=== PATIENT | female | born 1945 | race Caucasian/White ===

== ENCOUNTER → 2016-10-21 | Outpatient (CLI) | payer OTHER ==
[~2016-10-21] MED LIST: AMT10 PO; CALC-393 PO; CHOL100010 PO; FLUO10CA48 PO; IBUPROFEN; MULT-653; OMEP10CA2 PO; SIMV10TA2 PO; TYLOTC500 PO
[2016-10-21 13:46] LABS: BLOOD UREA NITROGEN 15 mg/dl (7-18); BUN/CREATININE RATIO 15.7 (10-20); CALCIUM 8.7 mg/dl (8.5-10.1); CARBON DIOXIDE 27 mmol/L (21-32); CHLORIDE 105 mmol/L (98-107); CREATININE 0.93 mg/dl (0.60-1.20); GLUCOSE 114 mg/dl (70-99); POTASSIUM 4.1 mmol/L (3.5-5.1); SODIUM 140 mmol/L (136-145)
[2016-10-21 13:50] LABS: ALT/SGPT 20 U/L (12-78); AST/SGOT 13 U/L (15-37); CHOLESTEROL 186 mg/dl (0-200); CHOLESTEROL/HDL RATIO 4.2; HDL CHOLESTEROL 44 mg/dl; LDL CHOLESTEROL CALCULATED 108 mg/dl; TRIGLYCERIDES 172 mg/dl (0-150); VERY LOW DENSITY LIPOPROT CALC 34 mg/dl
== END | disposition home or self-care (01) ==
LOC: C.LAB 11:39
PROVIDERS: ATTEND Family Medicine
DX: I10 Essential (primary) hypertension (principal); E78.5 Hyperlipidemia, unspecified

== ENCOUNTER → 2017-03-03 | Outpatient (CLI) | payer OTHER ==
--- NOTE | 2017-03-03 14:31 | MAMMOGRAPHY REPORT ---
BILATERAL DIGITAL SCREENING MAMMOGRAM WITH CAD: 03/03/2017 CLINICAL HISTORY: Routine screening. TECHNIQUE: Current study was also evaluated with a Computer Aided Detection (CAD) system. Bilateral CC and MLO views were obtained. COMPARISON: Comparison is made to exams dated: 03/01/2016 mammogram, 02/27/2015 mammogram, 02/24/2014 m ammogram, 02/23/2013 mammogram, 08/15/2011 mammogram, and 08/31/2010 mammogram - [facility] nter. BREAST COMPOSITION: The tissue of both breasts is almost entirely fatty. FINDINGS: No suspicious masses, calcifications, or areas of architectural distortion are noted in ei ther breast. There has been no significant interval change compared to prior exams. IMPRESSION: ACR BI-RADS CATEGORY 1: NEGATIVE There is no mammographic evidence of malignancy. A 1 year screening mammogram is recommended. The pa tient will receive written notification of the results. Approximately 10% of breast cancers are not detected with mammography. A negative mammographic report should not delay biopsy if a clinically suggestive mass is present. Stephanie Balderrama M.D. ah/:03/03/2017 12:22:51 Bottle Machine Operator: Maude Alvarenga RT(R)(M), [facility] letter sent: Normal 1/2 BI-RADS Code: ACR BI-RADS Category 1: Negative
== END | disposition home or self-care (01) ==
LOC: C.MAMM 11:47
PROVIDERS: ATTEND Obstetrics & Gynecology
DX: Z12.31 Encounter for screening mammogram for malignant neoplasm of breast (principal)

== ENCOUNTER → 2017-04-28 | Outpatient (CLI) | payer OTHER ==
[2017-04-28 18:27] LABS: BLOOD UREA NITROGEN 16 mg/dl (7-18); BUN/CREATININE RATIO 18.4 (10-20); CALCIUM 9.1 mg/dl (8.5-10.1); CARBON DIOXIDE 25 mmol/L (21-32); CHLORIDE 104 mmol/L (98-107); CHOLESTEROL 193 mg/dl (0-200); CREATININE 0.87 mg/dl (0.60-1.20); GLUCOSE 104 mg/dl (70-99); POTASSIUM 4.2 mmol/L (3.5-5.1); SODIUM 137 mmol/L (136-145); TRIGLYCERIDES 161 mg/dl (0-150); VERY LOW DENSITY LIPOPROT CALC 32 mg/dl
[2017-04-28 18:31] LABS: CHOLESTEROL/HDL RATIO 4.4; HDL CHOLESTEROL 44 mg/dl; LDL CHOLESTEROL CALCULATED 117 mg/dl
[2017-04-29 06:27] LABS: ESTIMATED AVERAGE GLUCOSE 128 mg/dl; HA1C FLAG Normal (Normal)
== END | disposition home or self-care (01) ==
LOC: C.LABPVFM 14:21
PROVIDERS: ATTEND Family Medicine
DX: R73.09 Other abnormal glucose (principal); E78.5 Hyperlipidemia, unspecified

== ENCOUNTER → 2018-03-04 | Outpatient (CLI) | payer OTHER ==
--- NOTE | 2018-03-05 07:56 | MAMMOGRAPHY REPORT ---
BILATERAL DIGITAL SCREENING MAMMOGRAM TOMOSYNTHESIS WITH CAD: 03/04/2018 CLINICAL HISTORY: Routine screening. Patient has no complaints. TECHNIQUE: The study was acquired using full field digital technology and interpreted from soft copy. Breast tomosynthesis in addition to standard 2D mammography was performed. Current study was also ev aluated with a Computer Aided Detection (CAD) system. COMPARISON: Comparison is made to exams dated: 03/03/2017 mammogram, 03/01/2016 mammogram, 02/27/2015 m ammogram, 02/23/2013 mammogram, 08/15/2011 mammogram, and 09/10/2010 ultrasound - [facility] enter. BREAST COMPOSITION: There are scattered areas of fibroglandular density in both breasts. FINDINGS: No suspicious masses, calcifications, or areas of architectural distortion are noted in either breast . There has been no significant interval change compared to prior exams. IMPRESSION: ACR BI-RADS CATEGORY 1: NEGATIVE There is no mammographic evidence of malignancy. A 1 year screening mammogram is recommended.( 019) The patient will receive written notification of the results. Some breast cancers are not detected with mammography. A negative mammographic report should not chet y biopsy if a clinically suggestive mass is present. Stephanie Balderrama M.D. ah/:03/04/2018 12:32:58 Radioisotope Technician: RT Dickson(Gary)(M), [facility] letter sent: Normal 1/2 BI-RADS Code: ACR BI-RADS Category 1: Negative
== END | disposition home or self-care (01) ==
LOC: C.MAMM 12:11
PROVIDERS: ATTEND Family Medicine Adult Medicine
DX: Z12.31 Encounter for screening mammogram for malignant neoplasm of breast (principal)

== ENCOUNTER → 2018-03-30 | Outpatient (CLI) | payer OTHER ==
[2018-03-30 17:38] LABS: BASO % 1.2 %; BASO ABS # 0.08 K/uL (0-0.2); EOS % 1.8 %; EOS ABS # 0.12 K/uL (0-0.5); HEMATOCRIT 43.7 % (37-47); HEMOGLOBIN 14.5 g/dL (12.0-16.0); IG# 0.01 K/uL (0.00-0.02); LYMPH % 27.3 %; LYMPH ABS # 1.84 K/uL (1.2-3.4); MEAN CELL VOLUME 88.1 fL (80-100); MEAN CORPUSCULAR HEMOGLOBIN 29.2 pg (25-34); MEAN CORPUSCULAR HGB CONC 33.2 g/dl (32-36); MEAN PLATELET VOLUME 12.4 fL (7.4-10.4); MONO % 10.8 %; MONO ABS # 0.73 K/uL (0.11-0.59); NEUT % 58.8 %; NEUT ABS # 3.95 K/uL (1.4-6.5); PLATELET COUNT 271 K/uL (130-400); RED CELL DISTRIBUTION WIDTH CV 13.2 % (11.5-14.5); RED CELL DISTRIBUTION WIDTH SD 42.3 fL (36.4-46.3); WHITE BLOOD COUNT 6.73 K/uL (4.8-10.8)
[2018-03-30 17:55] LABS: BLOOD UREA NITROGEN 11 mg/dl (7-18); GLUCOSE 92 mg/dl (70-99)
[2018-03-30 17:56] LABS: ALBUMIN 3.6 gm/dl (3.4-5.0); ALKALINE PHOSPHATASE 63 U/L (45-117); ALT/SGPT 22 U/L (12-78); AST/SGOT 19 U/L (15-37); CALCIUM 8.8 mg/dl (8.5-10.1); CARBON DIOXIDE 24 mmol/L (21-32); CHOLESTEROL 159 mg/dl (0-200); LDL CHOLESTEROL CALCULATED 85 mg/dl; POTASSIUM 4.1 mmol/L (3.5-5.1); SODIUM 137 mmol/L (136-145); TOTAL PROTEIN 7.7 gm/dl (6.4-8.2)
[2018-03-31 06:11] LABS: HEMOGLOBIN A1C 6.4 % (4.5-5.6)
== END | disposition home or self-care (01) ==
LOC: C.LABBC 13:31
PROVIDERS: ATTEND Family Medicine Adult Medicine
DX: E78.5 Hyperlipidemia, unspecified (principal); I10 Essential (primary) hypertension; R73.09 Other abnormal glucose; R61 Generalized hyperhidrosis

== ENCOUNTER 2021-12-05 17:21 | Observation (INO) ==
[2021-12-05 18:02] LABS: Basophils # (auto) 0.11 K/uL (0-0.2); Basophils % (auto) 1.9 %; Eosinophils # (auto) 0.13 K/uL (0-0.5); Eosinophils % (auto) 2.2 %; Hematocrit (blood only) 41.2 % (37-47); Hemoglobin 14.2 g/dL (12.0-16.0); Immature Granulocytes # (auto) 0.01 K/uL (0.00-0.02); Immature Granulocytes % (auto) 0.2 %; Lymphocytes # (auto) 1.82 K/uL (1.2-3.4); Lymphocytes % (auto) 30.8 %; Mean Corpuscular Hemoglobin 31.1 pg (25-34); Mean Corpuscular Hgb Conc 34.5 g/dL (32-36); Mean Corpuscular Volume 90.4 fL (80-100); Mean Platelet Volume 11.6 fL (7.4-10.4); Monocytes # (auto) 0.85 K/uL (0.11-0.59); Monocytes % (auto) 14.4 %; Neutrophils # (auto) 2.98 K/uL (1.4-6.5); Neutrophils % (auto) 50.5 %; Platelet Count 262 K/uL (130-400); RDW Coefficient of Variation 12.7 % (11.5-14.5); RDW Standard Deviation 41.8 fL (36.4-46.3); Red Blood Count 4.56 M/uL (4.2-5.4)
[2021-12-05 18:05] LABS: INR 0.9 (0.9-1.1); Partial Thromboplastin Ratio 0.9; Partial Thromboplastin Time 24.8 Seconds (21.0-31.0); Prothrombin Time 9.9 Seconds (9.0-12.0)
[2021-12-05 18:10] LABS: Albumin Globulin Ratio 1.3 (0.9-2); Albumin Level 4.2 gm/dl (3.4-5.0); BUN Creatinine Ratio 17.3 (10-20); Bilirubin,Total 0.4 mg/dl (0.2-1.0); Calcium 9.1 mg/dl (8.5-10.1); Creatinine Clr Calc Pharmacy 49.8 ml/min; Est GFR (African American) 65.9 ml/min; Est GFR (Non-African American) 56.8 ml/min; Globulin 3.2 gm/dl (2.5-4.0); Potassium 3.7 mmol/L (3.5-5.1); Total Protein 7.4 gm/dl (6.0-8.3)
--- NOTE | 2021-12-05 18:25 | XRay Report ---
XR chest 2V PA/lateral CLINICAL HISTORY: Atypical chest pain. COMPARISON STUDY: Chest radiograph March 01, 2021. FINDINGS: Lung volumes are normal. Minimal opacity along left heart border is unchanged and favors at electasis. There is no pneumothorax or pleural effusion. Cardiac size is normal. Mediastinal contours are normal. There is no evidence for pulmonary edema. IMPRESSION: No acute cardiopulmonary findings. ACT 112: Negative or not required by law. Electronically signed by: Jonas Colvin M.D. 12/05/2021 6:24 PM
[2021-12-05] MEDS ORDERED: ASPIRIN CHEW 324 MG PO STA (18:32)
[2021-12-05] MEDS ORDERED: SODIUM CHLORIDE 0.9% 1000ML 1,000 ML IV ONE (18:32)
--- NOTE | 2021-12-05 18:37 | Emergency Department Note ---
Impression & Plan Non-ST elevation SD (NSTEMI), Exertional chest pain ED Provider Note NAME: IZABELLA CLEMENS AGE: 76 SEX: F : 1945 ARRIVES VIA: Walk-In INFORMANT: Patient ED PROVIDER(S): Rodney Tracy DO CHIEF COMPLAINT: chest pain and shortness of breath HPI: Patient is a 76-year-old female who presents to the ER for exertional chest pain and shortness of breath referred in by PCP. She notes this has been going on for the past week. She denies any belly pain, nausea, vomiting, or diarrhea. No dysuria, urgency, or frequency. Pain is currently 0 out of 10. Describes as a heaviness/pressure in the middle of the chest without any other radiation. Resolves with rest. Does admit to a history of hypertension and hyperlipidemia. ROS: See above HPI for pertinent positives & negatives. A total of 10 systems reviewed and were otherwise negative. PAST MEDICAL HISTORY:See Below PAST SURGICAL HISTORY:See Below FAMILY HISTORY:See Below SOCIAL HISTORY:See Below HOME MEDICATIONS:See Below ALLERGIES:See Below VITALS:See Below PHYSICAL EXAMINATION: GENERAL: Sitting up in bed, alert, well appearing, well nourished, no distress, non-toxic EYE EXAM: normal conjunctiva. OROPHARYNX: no exudate, no erythema, lips, buccal mucosa, and tongue normal and mucous membranes are moist NECK: supple, no nuchal rigidity, no adenopathy, non-tender LUNGS: Clear to auscultation. Normal chest wall mechanics HEART: no murmurs, S1 normal and S2 normal ABDOMEN: abdomen soft, non-tender, normo-active bowel sounds, no masses, no rebound or guarding. UPPER EXTREMITIES: upper extremities are grossly normal. LOWER EXTREMITIES: No pitting edema. NEURO EXAM: Normal sensorium, cranial nerves II-XII grossly intact, normal speech, no gross weakness of arms, no gross weakness of legs. MEDICAL DECISION MAKING: Patient is a 76-year-old female presents ER for exertional chest pain shortness of breath. IV was established with orders obtained. Labs showed no significant leukocytosis or anemia. INR was unremarkable. BMP along with LFTs bilirubin w as unremarkable. Troponin was elevated at 200. COVID was negative. EKG was nondiagnostic. CT angio was neg and done as she had pleuritic CP with a +trop. Discussed with Dr. Victor that she did have 1 recurrence of chest pain while in the ER which resolved very quickly with nitro. She was placed on Nitropaste. He recommended holding on heparin. Patient was updated bedside admitted to the hospital for an NSTEMI. Triage Nursing notes reviewed. Limited review of prior medical records performed Vital Signs: reviewed and remarkable for HTN Differential diagnosis: Differential diagnoses includes but is not limited to acute coronary syndrome, myocardial infarction, pericarditis, pulmonary embolus, aortic dissection, pneumonia, pneumothorax, musculoskeletal, shingles, esophageal. ER treatment provided: See below Diagnostics interpreted by me: ECG: Sinus rhythm at 60 Normal axis Inferior Q waves Right bundle branch block QTC 470 T wave inversion in the inferior leads as well as V3 and V4 No significant change from previous on February 2021 Cardiac Monitoring: An order was placed for continuous cardiac monitoring. The monitor shows a rate of 70 with sinus rhythm. Laboratory studies: As stated above and show below. Imaging studies: CT angio was negative for PE Consultation(s): Discussed with Dr. Victor in regards to placing patient on heparin. He rec ommended holding at this time. Discussed with Kojo Barr for further evaluation Procedures: none Critical Care: None Past Med/Surg History Medical History Anxiety Depression Esophageal reflux Granuloma annulare Hearing loss Lichenoid keratosis Severe dysplasia of cervix Surgical History History of bilateral tubal ligation History of cholecystectomy History of colonoscopy History of esophagogastroduodenoscopy (EGD) History of gynecologic surgery History of tonsillectomy and adenoidectomy History of tooth extraction History of wisdom tooth extraction Hx of cataract surgery Family History Mother Melanoma Lung cancer Family history of reaction to anesthesia Son No problems noted. Father Myocardial infarction Lung cancer Other No family history of bleeding disorder Denies family history of Colon cancer Ovarian cancer Prostate cancer Breast cancer Colorectal cancer Stroke Social History Smoking Status: Former smoker Tobacco Type: Cigarettes Age Started Using Tobacco: 22; Age Quit Using Tobacco: 42; Cigarettes Per Day: 4-5 cigarettes a day; Second Hand Exposure: No; Hx Alcohol Use: Yes Alcohol type: wine Alcohol Intake Frequency: 2-3 x/Week Hx Substance Use: No Preferred Language: [place] Communication Ability: Effective Visual Impairment: Limited Hearing Ability: Use of Hearing Aid Studio Designer Required: No Beliefs That Will Affect Care: None marital status: Current Living Situation: Alone current occupational status: retired How many Children do You have: 2 Feels Safe at Home: Yes Childhood Exposure to Second-Hand Smoke: Yes (both parents smoked ) caffeine: Yes (coffee 1-2 cups a day ) Dental Care, Regularly: Yes Physical Activity Frequency: Does not Exercise Seatbelt Use: always Sunscreen Use: Yes Assistive Devices: Denture - Upper, Glasses and Hearing Aid - Bilateral Allergies Allergies Allergy/AdvReac Type Severity Reaction Status Date / Time minocycline Allergy Unknown UNKNOWN Verified 12/05/21 16:15 tetracycline Allergy Unknown Unknown Verified 12/05/21 16:15 Home Meds Home Medications Medication Instructions Recorded Confirmed multivitamin with minerals 1 tab PO QAM tab 04/27/19 12/05/21 (Multiple Vitamin-Minerals) biotin 1,000 mcg chewable tablet 1,000 mcg PO QAM 03/05/21 12/05/21 cholecalciferol (vitamin D3) 25 25 mcg PO QAM 03/05/21 12/05/21 mcg (1,000 unit) chewable tablet (Vitamin D3) omeprazole 20 mg capsule,delayed 20 mg PO QAM 03/05/21 12/05/21 release telmisartan 40 mg tablet 40 mg PO QAM 12/05/21 12/05/21 Previous Rx's Medication Instructions Recorded fluoxetine 40 mg capsule 40 mg PO QAM #90 cap 06/14/21 simvastatin 20 mg tablet 20 mg PO HS #90 tab 07/23/21 fluticasone propionate 50 1 spray INTRANASAL BID #15.8 ml 10/23/21 mcg/actuation nasal spray,suspension (Flonase Allergy Relief) amoxicillin 875 mg-potassium 1 tab PO BID #14 tab 12/05/21 clavulanate 125 mg tablet Results & Data (ED) Vital Signs Vital Signs - 24 hr 12/05/21 17:22 12/05/21 17:23 12/05/21 17:27 Temperature 36.6 C Temperature Source Oral Pulse Rate 64 Respiratory Rate 20 20 20 Respiratory Effort / Characteristics Non-Labored Non-Labored Respiratory Depth Normal Normal Blood Pressure 197/85 H Blood Pressure Mean 122 Pulse Oximetry 97 98 97 Oxygen Delivery Method Room Air Room Air Room Air Sepsis Recent Fever Within 48 Hours No Sepsis New/Unexplained Change in Mental Status N/A Sepsis Action Taken by Nursing No Action Required Laboratory Data Result diagrams: 12/05/21 17:33 12/05/21 17:33 Lab Results 12/05/21 12/05/21 12/05/21 Range/Units 17:33 17:33 17:33 WBC 5.90 (4.8-10.8) K/uL RBC 4.56 (4.2-5.4) M/uL Hgb 14.2 (12.0-16.0) g/dL Hct 41.2 (37-47) % MCV 90.4 (80-100) fL MCH 31.1 (25-34) pg MCHC 34.5 (32-36) g/dL RDW Std Deviation 41.8 (36.4-46.3) fL RDW Coeff of David 12.7 (11.5-14.5) % Plt Count 262 (130-400) K/uL MPV 11.6 H (7.4-10.4) fL Immature Gran % (Auto) 0.2 % Neut % (Auto) 50.5 % Lymph % (Auto) 30.8 % Millard % (Auto) 14.4 % Eos % (Auto) 2.2 % Baso % (Auto) 1.9 % Neut # (Auto) 2.98 (1.4-6.5) K/uL Lymph # (Auto) 1.82 (1.2-3.4) K/uL Millard # (Auto) 0.85 H (0.11-0.59) K/uL Eos # (Auto) 0.13 (0-0.5) K/uL Baso # (Auto) 0.11 (0-0.2) K/uL Immature Gran # (Auto) 0.01 (0.00-0.02) K/uL PT 9.9 (9.0-12.0) Seconds INR 0.9 (0.9-1.1) APTT 24.8 (21.0-31.0) Seconds PTT Ratio 0.9 Sodium (136-145) mmol/L Potassium (3.5-5.1) mmol/L Chloride (98-107) mmol/L Carbon Dioxide (21-32) mmol/L Anion Gap (3-11) BUN (6-23) mg/dl Creatinine (0.6-1.2) mg/dl Est Cr Clr Drug Dosing ml/min Est GFR ( Amer) ml/min Est GFR (Non-Af Amer) ml/min BUN/Creatinine Ratio (10-20) Glucose (70-99(Fasting)) mg/dl Calcium (8.5-10.1) mg/dl Total Bilirubin (0.2-1.0) mg/dl AST (13-39) U/L ALT (7-52) U/L Alkaline Phosphatase (34-104) U/L Troponin I High Sens 195.5 H* (0-14) pg/ml Total Protein (6.0-8.3) gm/dl Albumin (3.4-5.0) gm/dl Globulin (2.5-4.0) gm/dl Albumin/Globulin Ratio (0.9-2) SARS-CoV-2, RNA, NAAT (NEGATIVE) 12/05/21 12/05/21 Range/Units 17:33 18:46 WBC (4.8-10.8) K/uL RBC (4.2-5.4) M/uL Hgb (12.0-16.0) g/dL Hct (37-47) % MCV (80-100) fL MCH (25-34) pg MCHC (32-36) g/dL RDW Std Deviation (36.4-46.3) fL RDW Coeff of David (11.5-14.5) % Plt Count (130-400) K/uL MPV (7.4-10.4) fL Immature Gran % (Auto) % Neut % (Auto) % Lymph % (Auto) % Millard % (Auto) % Eos % (Auto) % Baso % (Auto) % Neut # (Auto) (1.4-6.5) K/uL Lymph # (Auto) (1.2-3.4) K/uL Millard # (Auto) (0.11-0.59) K/uL Eos # (Auto) (0-0.5) K/uL Baso # (Auto) (0-0.2) K/uL Immature Gran # (Auto) (0.00-0.02) K/uL PT (9.0-12.0) Seconds INR (0.9-1.1) APTT (21.0-31.0) Seconds PTT Ratio Sodium 137 (136-145) mmol/L Potassium 3.7 (3.5-5.1) mmol/L Chloride 105 (98-107) mmol/L Carbon Dioxide 26 (21-32) mmol/L Anion Gap 6 (3-11) BUN 17 (6-23) mg/dl Creatinine 0.98 (0.6-1.2) mg/dl Est Cr Clr Drug Dosing 49.8 ml/min Est GFR ( Amer) 65.9 ml/min Est GFR (Non-Af Amer) 56.8 ml/min BUN/Creatinine Ratio 17.3 (10-20) Glucose 83 (70-99(Fasting)) mg/dl Calcium 9.1 (8.5-10.1) mg/dl Total Bilirubin 0.4 (0.2-1.0) mg/dl AST 17 (13-39) U/L ALT 12 (7-52) U/L Alkaline Phosphatase 60 (34-104) U/L Troponin I High Sens (0-14) pg/ml Total Protein 7.4 (6.0-8.3) gm/dl Albumin 4.2 (3.4-5.0) gm/dl Globulin 3.2 (2.5-4.0) gm/dl Albumin/Globulin Ratio 1.3 (0.9-2) SARS-CoV-2, RNA, NAAT NEGATIVE (NEGATIVE) Administered Medications Acetaminophen (Acetaminophen 325 Mg Tab) 650 mg PO Q4H PRN PRN Reason: pain/fever Stop: 01/04/22 21:45 Last Admin: 12/05/21 22:35 Dose: 650 mg Documented by: [id number] Nitroglycerin (Nitroglycerin Sl 0.4 Mg/Tab Tab) 0.4 mg SL PRN PRN PRN Reason: Chest Pain Stop: 01/04/22 19:28 Last Admin: 12/05/21 19:36 Dose: 0.4 mg Documented by: [id number] Nitroglycerin (Nitroglycerin 2% Ointment 30gm Tube) 2 inch EXT Q6H LUIS MANUEL Stop: 01/04/22 20:14 Last Admin: 12/05/21 20:44 Dose: 2 inch Documented by: [id number] Discontinued Medications Al Hydrox/Mg Hydrox/Simethicone (Gi Cocktail Ed Use) 1 dose PO NOW STA Stop: 12/05/21 22:23 Last Admin: 12/05/21 22:35 Dose: 1 dose Documented by: [id number] Aspirin (Aspirin Chew 324 Mg) 324 mg PO NOW STA Stop: 12/05/21 18:33 Last Admin: 12/05/21 18:48 Dose: 324 mg Documented by: [id number] Famotidine (Famotidine 20mg/5ml Iv Push) 20 mg IV NOW STA Stop: 12/05/21 22:23 Last Admin: 12/05/21 22:35 Dose: 20 mg Documented by: [id number] Sodium Chloride (Nss 1000ml) 1,000 mls @ 999 mls/hr IV .Q1H1M ONE Stop: 12/05/21 19:32 Last Infusion: 12/05/21 20:45 Dose: 0 mls/hr Documented by: [id number] Admin: 12/05/21 18:48 Dose: 999 mls/hr Documented by: [id number] Ioversol (Optiray 320 125ml) 120 ml IV ONCE ONE Stop: 12/05/21 19:13 Last Admin: 12/05/21 19:15 Dose: 120 ml Documented by: [id number] Imaging Data Radiologist's Impression: Chest X-Ray 12/05/21 17:27 XR chest 2V PA/lateral CLINICAL HISTORY: Atypical chest pain. COMPARISON STUDY: Chest radiograph March 01, 2021. FINDINGS: Lung volumes are normal. Minimal opacity along left heart border is unchanged and favors atelectasis. There is no pneumothorax or pleural effusion. Cardiac size is normal. Mediastinal contours are normal. There is no evidence for pulmonary edema. IMPRESSION: No acute cardiopulmonary findings. ACT 112: Negative or not required by law. Electronically signed by: Jonas Colvin M.D. 12/05/2021 6:24 PM Chest CTA 12/05/21 18:32 CT ANGIOGRAPHY OF THE CHEST, PULMONARY EMBOLUS PROTOCOL CLINICAL HISTORY: Atypical chest pain. Evaluate for pulmonary embolus. COMPARISON STUDY: Chest radiograph performed earlier today. Chest CT January 23, 2007. TECHNIQUE: Following IV administration of 120 mL of Optiray, helical axial images of the chest were obtained utilizing the pulmonary embolus protocol. Maximal intensity projections and sagittal and coronal reformats were viewed on an independent 3D workstation. IV contrast was administered without complication. Automated exposure control was utilized for the study. A dose lowering technique was utilized adhering to the principles of ALARA. CT DOSE: 299.34 mGy.cm FINDINGS: No pulmonary emboli are identified. There is no thoracic aortic dissection. Mild cardiomegaly is noted. There is no pericardial effusion. Small hiatal hernia is present. There is no pneumomediastinum. No enlarged axillary, mediastinal or hilar lymph nodes are present. No suspicious pulmonary nodules are present. Mild lingular opacity reflects atelectasis or scarring. No consolidation to suggest pneumonia. No acute fracture or suspicious lesion with in the visualized bony thorax. Gallbladder is surgically absent. IMPRESSION: 1. No pulmonary emboli identified. 2. No acute process within the chest. ACT 112: Negative or not required by law. Electronically signed by: Jonas Colvin M.D. 12/05/2021 7:42 PM Discharge Plan Visit Data Chief Complaint: Referred by Doctor Stated Complaint: headache, sob, chest pain, stiff neck,legs swollen ED Provider: Rodney Tracy Discharge Problem: Non-ST elevation SD (NSTEMI), Exertional chest pain Patient Disposition: Admitted As Inpatient Discharge Instructions Interventions: ED Discharge Assessment Last Done: 12/05/21 22:55
[2021-12-05] MEDS ORDERED: OPTIRAY 320 125ml IV ONE (19:12)
[2021-12-05] MEDS ORDERED: NITROGLYCERIN SL 0.4 MG/TAB TAB SL PRN (19:29)
--- NOTE | 2021-12-05 19:44 | CT Scan Report ---
CT ANGIOGRAPHY OF THE CHEST, PULMONARY EMBOLUS PROTOCOL CLINICAL HISTORY: Atypical chest pain. Evaluate for pulmonary embolus. COMPARISON STUDY: Chest radiograph performed earlier today. Chest CT January 23, 2007. TECHNIQUE: Following IV administration of 120 mL of Optiray, helical axial images of the chest were o btained utilizing the pulmonary embolus protocol. Maximal intensity projections and sagittal and cor onal reformats were viewed on an independent 3D workstation. IV contrast was administered without co mplication. Automated exposure control was utilized for the study. A dose lowering technique was ut ilized adhering to the principles of ALARA. CT DOSE: 299.34 mGy.cm FINDINGS: No pulmonary emboli are identified. There is no thoracic aortic dissection. Mild cardiomeg gunner is noted. There is no pericardial effusion. Small hiatal hernia is present. There is no pneumomed iastinum. No enlarged axillary, mediastinal or hilar lymph nodes are present. No suspicious pulmonary nodules are present. Mild lingular opacity reflects atelectasis or scarring. No consolidation to sug gest pneumonia. No acute fracture or suspicious lesion within the visualized bony thorax. Gallbladder is surgically absent. IMPRESSION: 1. No pulmonary emboli identified. 2. No acute process within the chest. ACT 112: Negative or not required by law. Electronically signed by: Jonas Colvin M.D. 12/05/2021 7:42 PM
[2021-12-05] MEDS: NITROGLYCERIN 2% OINTMENT 30GM TUBE EXT SCH (20:44)
--- NOTE | 2021-12-05 21:18 | History & Physical Report ---
Date of Service December 05, 2021 Assessment & Plan (1) Epigastric discomfort: Plan: This is a 72-year-old female with a notable history of hiatal hernia, esophageal dysphagia, GERD, IBS, hyperlipidemia, goiter, hypertension, depression who presents to [facility] for evaluation of non-exertionally related episodic epigastric discomfort x 1 year that is increasing in frequency over the last year, subsequently found to have a detectable troponin level on arrival. She requires hospitalization for ACS r/o. Epigastric Discomfort Patient describes not exertionally related episodic epigastric discomfort that has been occurring over a year and increasing in frequency over the last week; it is made worse by lying down, and is occasionally exacerbated by large meals and EtOH Work-up as follows: CBC, chemistries largely without abnormality Troponin detectable at 195 on arrival ; no new conduction/repolarization abnormalities compared to prior (02/2021) Heart score 4 (age, risk factors, elevated troponin) CTA with evidence of small hiatal hernia; otherwise without evidence of pulmonary emboli or active disease in the chest. Reproducible on exam Known history of class I obesity, hypertension, hyperlipidemia ; also, hiatal hernia, GERD Description of episodic epigastric discomfort primarily sounds gastroesophageal in origin, suspect reflux and possible component of reactive spasm. However, in the setting of her bumped troponin and risk factors, cannot definitively rule out ACS. There is no evidence of PE. Other chest vasculature is without abnormality on CT scan. Lower suspicion for costochondritis Trend troponin to peak Check TTE in a.m. to evaluate for WMAs / cardiomyopathy Trial GI cocktail, Pepcid Pending further troponin trend and symptom observation, could consider stress testing as outpatient or while here (2) Hyperlipidemia: Plan: Continue simvastatin. May wish to consider increasing potency during admission / as outpatient if her presentation pans out to ACS/evidence of CAD (3) Chronic GERD: Plan: As above. In setting of epigastric discomfort, do wonder if her regimen needs to be optimized. She has history of hiatal hernia, which appears small on CTA Pantoprazole 40mg daily while here, famotidine 20mg daily while here (pending w/u above, can consider adding to home regimen for 6-8 weeks) EGD: (4) Benign essential HTN: Plan: Hypertensive on arrival, but asymptomatic. Much better controlled as night has gone on Continue telmisartan ; consider other agents as indicated for ACS w/u (5) Depression: Plan: Continue Prozac Plan: Code: Full code Dispo: MS/Tele Diet: Heart health PPX: Lovenox History of Present Illness Primary Care Provider: Isabela Colvin MD This is a 72-year-old female with a notable history of hiatal hernia, esophageal dysphagia, GERD, IBS, hyperlipidemia, goiter, hypertension, depression who presents to [facility] for evaluation of headache, shortness of breath, chest pain. Patient says that over the last year or so, she has had intermittent, episodic episodes of epigastric/substernal squeezing type chest pressure that is positionally related (gets worse with lying down) and somewhat prandially related. She says that she has a significant history of GI issuesincluding hiatal hernia, GERD, dysphagia. She says that over the past few weeks, this discomfort has become more frequent. It is never present with exertion/shortness of breath. She notices that if she eats late at night and goes to bed and lies down, she notices the pain more. Occasionally when she consumes alcohol, this causes the pain as well. She says that sometimes it is improved with famotidine and omeprazole. She denies any waking up coughing or short of breath. She feels the issue has been becoming more frequent. She says that over the last week, she is also had a headache. She describes it as bitemporal with some associated sinus discomfort. She denies excessive sinus drainage. Denies any fevers, chills, night sweats. She was prescribed an antibiotic by her primary care prescriber earlier today in attempt to help with the symptoms. She denies dental pain, coughing, shortness of breath. She lives at home with her son and [id number]. She denies tobacco history. She denies regular alcohol use. Denies history of recreational drug use. In the ED, patient was found to have hypertension at 197/85 with otherwise normal vital signs. CBC without appreciable abnormality. Basic chemistry normal. High-sensitivity troponin did result positive at 195. ECG: Normal sinus rhythm at 60 bpm, no ectopy; PA normal, QRS in V2V4 with RSR prime type pattern; normal axis, normal transition; difficult to interpret R wave progression in the setting of RSR prime; no concordant pathologic use; no voltage evidence of LVH; T wave abnormality appreciated in inferior leads as well as anteroseptal leads in the setting of suspected right conduction delay. Abnormal EKG. Unchanged compared to prior 02/28. CTA without pulmonary emboli, active disease in the chest. She was given aspirin 324, nitroglycerin. Allergies Allergy/AdvReac Type Severity Reaction Status Date / Time minocycline Allergy Unknown UNKNOWN Verified 12/05/21 16:15 tetracycline Allergy Unknown Unknown Verified 12/05/21 16:15 Home Medications Medication Instructions Recorded Confirmed Type multivitamin with minerals 1 tab PO QAM tab 04/27/19 12/05/21 History (Multiple Vitamin-Minerals) biotin 1,000 mcg chewable tablet 1,000 mcg PO QAM 03/05/21 12/05/21 History cholecalciferol (vitamin D3) 25 25 mcg PO QAM 03/05/21 12/05/21 History mcg (1,000 unit) chewable tablet (Vitamin D3) omeprazole 20 mg capsule,delayed 20 mg PO QAM 03/05/21 12/05/21 History release fluoxetine 40 mg capsule 40 mg PO QAM #90 cap 06/14/21 12/05/21 Rx simvastatin 20 mg tablet 20 mg PO HS #90 tab 07/23/21 12/05/21 Rx fluticasone propionate 50 1 spray INTRANASAL BID #15.8 ml 10/23/21 12/05/21 Rx mcg/actuation nasal spray,suspension (Flonase Allergy Relief) amoxicillin 875 mg-potassium 1 tab PO BID #14 tab 12/05/21 12/05/21 Rx clavulanate 125 mg tablet telmisartan 40 mg tablet 40 mg PO QAM 12/05/21 12/05/21 History Past Med/Surg History Medical History Anxiety Chronic GERD Depression Esophageal reflux Granuloma annulare Hearing loss Hiatal hernia Hyperlipidemia Hypertension Irritable bowel syndrome 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 Father Myocardial infarction Lung cancer Other No family history of bleeding disorder Denies family history of Colon cancer Ovarian cancer Prostate cancer Breast cancer Colorectal cancer Stroke Social History Smoking Status: Former smoker Tobacco Type: Cigarettes Age Started Using Tobacco: 22; Age Quit Using Tobacco: 42; Cigarettes Per Day: 1; Smoking End Date: 1980; Second Hand Exposure: No; Hx Alcohol Use: Yes Alcohol type: wine Alcohol Intake Frequency: 2-3 x/Week Hx Substance Use: No Preferred Language: Malawian Communication Ability: Effective Visual Impairment: Limited Hearing Ability: Use of Hearing Aid Chromium Plater Required: No Beliefs That Will Affect Care: None marital status: Current Living Situation: Family Current Living Situation Comment: Lives with Son and his family current occupational status: retired How many Children do You have: 2 Other Information That Helps Us Care for You: No Feels Safe at Home: Yes Safety Concerns: Feels Safe At This Time Childhood Exposure to Second-Hand Smoke: Yes (both parents smoked ) caffeine: Yes (coffee 1-2 cups a day ) Dental Care, Regularly: Yes Physical Activity Frequency: Does not Exercise Seatbelt Use: always Sunscreen Use: Yes Assistive Devices: Denture - Upper, Denture - Lower, Glasses and Hearing Aid - Bilateral Review of Systems Review of Systems: as per HPI Physical Exam Physical Exam: General: Well-appearing 76-year-old female no acute distress. HEENT: NCAT. - Eyes - Sclera are white, anicteric, and without injection. PERRL. - Mouth - MMM with no tonsillar edema or exudates. - Nose - nasal turbinates are uninflamed and without discharge. - Ears - External ears appears healthy b/l with no erythema or rashes - Neck - supple and without LAD. No JVD. Cardiac: Normal rate and regular rhythm; S1 and S2 present with no murmurs, rubs, or gallops. Pulmonary: Good respiratory effort with symmetric expansion of the chest. No use of accessory muscles. Lungs were clear to auscultation bilaterally with no crackles or wheezes. Abdominal: Normoactive bowel sounds. Abdomen was soft, nondistended. Mild TTP in the epigastrium just below xiphoid process. Extremities: Upper and lower extremities are warm and well perfused. Psych: Well-developed, well-nourished, appropriately dressed for occasion. B ehavior is cooperative and appropriate. Affect is WNL. Insight is appropriate. Results & Data Results & Data ([facility]) Vital Signs (Past 12 Hours) Vital Signs Temp Pulse Resp BP Pulse Ox 12/05/21 17:27 20 97 12/05/21 17:23 36.6 C 64 20 197/85 H 98 12/05/21 17:22 20 97 Supervising Physician Co-Signing Physician Notes Attending addendum: I have physically seen this patient, have supervised the medical residents activities, and agree with the H&P unless as otherwise noted. Assessment and Plan: Elevated troponin/hypertension- The patient will be admitted to telemetry for serial cardiac enzymes, serial EKG's, cardiac rhythm monitoring and a 2-D echocardiogram with Dopplers. Continue telmisartan. Continue Nitropaste added in ED Question whether GI symptoms may be an anginal equivalent Epigastric discomfort/GERD/hiatal hernia- Placed on pantoprazole 40 mg daily in a.m., and famotidine 20 mg at bedtime May need an EGD Depression- Continue fluoxetine Remaining orders and notations as noted Resident Activity Tracking Resident Involvement: Resident Care Provided Care Provided: Adult Hospital Medicine
[2021-12-05] MEDS ORDERED: FAMOTIDINE 20 MG in SYRINGE 3 ML IV STA (22:18)
[2021-12-05] MEDS ORDERED: ALUMINUM/MAGNESIUM SUSP 18 ML, LIDOCAINE VISCOUS 2% SOLN 6 ML, BARCODE IDENTIFIER 1 EA PO ONE (22:18)
[2021-12-05] MEDS ORDERED: PANTOprazole 40 MG TAB PO STA (22:18)
[2021-12-05] MEDS ORDERED: GI COCKTAIL ED USE PO STA (22:22)
[2021-12-05] MEDS ORDERED: FAMOTIDINE 20MG/5ML IV PUSH IV STA (22:22)
[2021-12-05] MEDS: ACETAMINOPHEN 325 MG TAB PO PRN (22:35)
[2021-12-06] MEDS: NITROGLYCERIN 2% OINTMENT 30GM TUBE EXT SCH ×4 (02:30→20:20)
[2021-12-06] MEDS: ACETAMINOPHEN 325 MG TAB PO PRN ×4 (06:12→23:03)
[2021-12-06 06:28] LABS: Basophils # (auto) 0.09 K/uL (0-0.2); Basophils % (auto) 1.7 %; Eosinophils # (auto) 0.17 K/uL (0-0.5); Eosinophils % (auto) 3.2 %; Hematocrit (blood only) 36.8 % (37-47); Hemoglobin 12.4 g/dL (12.0-16.0); Immature Granulocytes # (auto) 0.01 K/uL (0.00-0.02); Immature Granulocytes % (auto) 0.2 %; Lymphocytes # (auto) 2.06 K/uL (1.2-3.4); Lymphocytes % (auto) 38.6 %; Mean Corpuscular Hemoglobin 30.4 pg (25-34); Mean Corpuscular Hgb Conc 33.7 g/dL (32-36); Mean Corpuscular Volume 90.2 fL (80-100); Mean Platelet Volume 11.1 fL (7.4-10.4); Monocytes # (auto) 0.54 K/uL (0.11-0.59); Monocytes % (auto) 10.1 %; Neutrophils # (auto) 2.46 K/uL (1.4-6.5); Neutrophils % (auto) 46.2 %; Platelet Count 228 K/uL (130-400); RDW Coefficient of Variation 12.8 % (11.5-14.5); RDW Standard Deviation 41.9 fL (36.4-46.3); Red Blood Count 4.08 M/uL (4.2-5.4); White Blood Count 5.33 K/uL (4.8-10.8)
[2021-12-06 06:31] LABS: BUN Creatinine Ratio 15.2 (10-20); Calcium 8.3 mg/dl (8.5-10.1); Creatinine Clr Calc Pharmacy 53.4 ml/min; Est GFR (African American) 71.1 ml/min; Est GFR (Non-African American) 61.3 ml/min
[2021-12-06] MEDS: FLUTICASONE PROPIONATE NA SPR 16 GM BTL NAE SCH ×2 (07:42→19:58)
[2021-12-06] MEDS: FLUoxetine HCL 20 MG CAP PO SCH (07:43)
[2021-12-06] MEDS: CHOLECALCIFEROL 1,000 UNITS 25 MCG TAB PO SCH (07:43)
[2021-12-06] MEDS: ENOXAPARIN INJ 40 MG/0.4 ML SYR SQ SCH (07:44)
[2021-12-06] MEDS: TELMISARTAN 40 MG TAB PO SCH (07:44)
[2021-12-06] MEDS: CEROVITE ADV FORMULA TAB PO SCH (07:44)
[2021-12-06] MEDS ORDERED: NON-FORMULARY MEDICATION (Biotin 1,000 mcg Tablet,Chewable) PO SCH (09:00)
[2021-12-06] MEDS ORDERED: PANTOprazole 40 MG TAB PO SCH (09:00)
[2021-12-06 11:41] LABS: Amylase 33 U/L (25-115); Lipase 19 U/L (11-82)
--- NOTE | 2021-12-06 11:48 | XCELERA ---
[id number]
--- NOTE | 2021-12-06 12:31 | Hospitalist Progress Note ---
Date of Service December 06, 2021 Assessment & Plan (1) Epigastric discomfort: Plan: 72yo female with a history of hiatal hernia, esophageal dysphagia, GERD, IBS, HTN, HLD, goiter, and depression presents to [facility] for evaluation of a one-year history of increasingly-frequent episodes of non-exertional epigastric/low chest discomfort, subsequently found to have a detectable troponin level. Epigastric/chest pain, elevated troponin Patient presenting with a one-year history of increasingly-frequent episodes of non-exertional epigastric/low chest discomfort, worsened by meals, laying flat, and alcohol Initial hsTroponin detectable, repeat value (2hr) higher, though third value (6hr after 2nd) had fallen CTA without evidence of PE or other acute condition; patient's known hiatal hernia was noted as well Heart score 4 (age, risk factors, elevated troponin) EKG shows NSR with some nonspecific T-wave inversion, but without overt ischemic change Suspect symptoms are GI related (reflux vs esophageal spasm vs other), given pain is non-exertional/worsened by meals/laying flat/alcohol; however, differential includes unstable angina Patient underwent EGD last February for similar symptoms; even though no abnormalities were noted, esophageal dilation was performed Patient underwent stress echo last March which was normal (EF 60-65%, normal LV function), repeat echo performed during this admission (12/06) findings same as prior Consulting cardiology due to concerns about the elevated 2hr hsTroponin in the setting of a patient without known coronary disease Nuclear med study planned for 12/07 Symptoms improved with GI cocktail and pepcid While in-hospital, continue pantoprazole 40mg bid and famotidine 20mg qd Chronic conditions: HTN: BP intermittently elevated, likely secondary to pain; continue home telmisartan HLD: continue home simvastatin GERD: patient's home omeprazole held on admission; continue pantoprazole and famotidine as above MDD: continue home fluoxetine FEN: heart-healthy diet Code status: full code DVT ppx: lovenox Held home meds: omeprazole Consults: cardiology PT/OT: ordered Dispo: med/surg telemetry (2) Hyperlipidemia: (3) Chronic GERD: Plan: As above. In setting of epigastric discomfort, do wonder if her regimen needs to be optimized. She has history of hiatal hernia, which appears small on CTA Pantoprazole 40mg daily while here, famotidine 20mg daily while here (pending w/u above, can consider adding to home regimen for 6-8 weeks) EGD: (4) Benign essential HTN: Plan: Hypertensive on arrival, but asymptomatic. Much better controlled as night has gone on Continue telmisartan ; consider other agents as indicated for ACS w/u (5) Depression: Plan: Continue Prozac Plan: Code: Full code Dispo: MS/Tele Diet: Heart health PPX: Lovenox Admission and Anticipated Discharge Date Admission Date: December 05, 2021 Supervising Physician Co-Signing Physician Notes I personally examined the patient and verified all vargas points of history and exam, discussed case, and agree with decision making with Dr Ma. Has a bit of a headache, bitemporal, bit of a stiff neck. Notes that symptoms felt very gastrointestinal. Still having off-and-on. Discussed diet. Vitals noted, in general she is awake and alert pleasant no distress. HEENT normocephalic atraumatic mucous membranes moist. Breathing unlabored no accessory muscle use good effort. Musculoskeletal/osteopathic shows left greater than right suboccipitals to be high tone, tender, decreased range of motioninhibitory pressuretissue texture improved, patient tolerated well, and headache improved some. Chest painsymptoms actually seem extremely consistent with upper GI Mildly elevated troponinhard to explain otherwiseagree with stress testing Headachetension headachecervical somatic dysfunctionOMT as above Otherwise as above Subjective Feels well today. Low chest / epigastric pain has improved since admission but has not yet resolved. Reports a headache which has been persistent since [facility] - the headache is not very severe but is concerning to patient because she doesn't frequently get headaches. Tolerating PO well. No other symptoms or concerns today including vision changes, SOB, nausea, vomiting, diarrhea, or other symptoms. Physical Exam Physical Exam: Constitutional: well-appearing, no acute distress, sitting in up in bed HEENT: MMM CV: regular rhythm, no murmur appreciated, extremities well-perfused, no LE edema Resp: CTABL, no wheezes/rales/rhonchi appreciated, no increased work of breathing GI: soft, nondistended, mild tenderness of the epigastrium, nontender elsewhere, BS present Neuro: alert, oriented, no focal neurologic deficit appreciated Results & Data Results & Data ([facility]) Vital Signs (Past 12 Hours) Vital Signs Temp Pulse Pulse Resp BP BP Pulse Ox 12/06/21 11:13 36.8 C 61 20 128/61 97 12/06/21 07:16 36.6 C 66 16 145/66 H 97 12/06/21 07:05 67 12/06/21 02:50 36.6 C 62 18 128/64 98 12/06/21 01:14 63 Resident Activity Tracking Resident Involvement: Resident Care Provided Care Provided: Adult Hospital Medicine
--- NOTE | 2021-12-06 17:50 | Cardiology Consultation ---
Date of Consultation December 06, 2021 Assessment & Plan (1) Epigastric discomfort: (2) Exertional chest pain: (3) Elevated troponin: (4) Hypertension: ASSESSMENT/PLAN: 1. Chest pain: Exertional chest heaviness was described, but not reason for presentation. this could be consistent with ischemic heart disease. Unremarkable stress echo in 2020, but poor exercise tolerance. Myocardial perfusion study ordered. 2. Elevated troponin: Troponin elevated but not suggestive of acute coronary syndrome. Plan as above. Risk factor modification. 3. Epigastric discomfort: Highly suggestive of GI etiology. Chronic issue. Has followed with GI. Reproducible on exam. Defer to primary service. 4. Hypertension: Blood pressure has been normotensive to hypertensive. if remains hypertensive, recommend titration of medical therapy. 5. Disposition: Myocardial perfusion study pending for 12/07/2021. Patient care communicated with Dr. Reyes of the primary hospitalist service. Cardiology will continue to follow. Today's visit was 53 minutes in duration, including counseling patient, coordinating care, reviewing chart, and chart completion. History of Present Illness Reason for Consultation: Chest pain with elevated troponin Requesting Physician: Rodney Reyse DO Attending Physician: Rodney Reyes DO History of Present Illness Ms. Cobb is a very pleasant 76-year-old female with a history significant for hypertension, dyslipidemia, IBS, GERD, esophageal dysphagia, and hiatal hernia. She was admitted on 12/05/2021 with epigastric discomfort. She has a a significant history of epigastric pain which is worse when laying down and after eating. She underwent EGD in February of 2022 for the same symptoms and was found to have a small hiatal hernia and underwent esophageal dilation. It is documented within GI visits that epigastric discomfort and current symptoms are exacerbated by greasy foods and alcohol. She recalls recently having 2 glasses of wine and had significant epigastric pain and then vomited. Typically epigastric discomfort is associated with nausea and belching. Symptoms improve when sitting upright, if they occurred during the night. Sometimes, when she has such symptoms, she will also develope heaviness in the substernal chest area. She also can experience substernal chest heaviness when climbing stairs which is sometimes associated with shortness of breath. She has chronic lower extremity swelling which she describes as mild. She denies syncope, near-syncope, palpitations, bleeding. She went to see her PCP on 12/05/2021 for headache which has been constant the past 1-2 weeks. There was concern for sinusitis and she was placed on Augmentin, which she has not yet started. Because of her symptoms that she described during PCP visit, including her epigastric discomfort and shortness of breath, she was sent to the emergency department for evaluation. Her initial high sensitivity troponin was 195.5, with follow-up nearly 5 hours later of 270.7, which was also her peak troponin. She has had the following studies/ procedures: 1. Stress echo 03/19/2021: Negative stress echo and ECG at > 100% MPHR. 3 minutes 23 seconds Jameson protocol. Review of systems: As above. Review of systems otherwise negative/unremarkable. Family history: Father had lung cancer and in the setting of pneumonia, from [place] at the age of 70. Mother had melanoma. Social history: She quit smoking in her early 40s after smoking approximately 1 pack per week. Occasional alcohol. Lives with her son and his family. Div orced x2. Two sons total. Grandchildren and great grandchild. She was unaccompanied in her hospital room. Allergies Allergy/AdvReac Type Severity Reaction Status Date / Time minocycline Allergy Unknown UNKNOWN Verified 12/05/21 16:15 tetracycline Allergy Unknown Unknown Verified 12/05/21 16:15 Home Medications Medication Instructions Recorded Confirmed Type multivitamin with minerals 1 tab PO QAM tab 04/27/19 12/05/21 History (Multiple Vitamin-Minerals) biotin 1,000 mcg chewable tablet 1,000 mcg PO QAM 03/05/21 12/05/21 History cholecalciferol (vitamin D3) 25 25 mcg PO QAM 03/05/21 12/05/21 History mcg (1,000 unit) chewable tablet (Vitamin D3) omeprazole 20 mg capsule,delayed 20 mg PO QAM 03/05/21 12/05/21 History release fluoxetine 40 mg capsule 40 mg PO QAM #90 cap 06/14/21 12/05/21 Rx simvastatin 20 mg tablet 20 mg PO HS #90 tab 07/23/21 12/05/21 Rx fluticasone propionate 50 1 spray INTRANASAL BID #15.8 ml 10/23/21 12/05/21 Rx mcg/actuation nasal spray,suspension (Flonase Allergy Relief) amoxicillin 875 mg-potassium 1 tab PO BID #14 tab 12/05/21 12/05/21 Rx clavulanate 125 mg tablet telmisartan 40 mg tablet 40 mg PO QAM 12/05/21 12/05/21 History Patient History Medical History Anxiety Chronic GERD Depression Esophageal reflux Granuloma annulare Hearing loss Hiatal hernia Hyperlipidemia Hypertension Irritable bowel syndrome 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 Father Myocardial infarction Lung cancer Other No family history of bleeding disorder Denies family history of Colon cancer Ovarian cancer Prostate cancer Breast cancer Colorectal cancer Stroke Social History Smoking Status: Former smoker Tobacco Type: Cigarettes Age Started Using Tobacco: 22; Age Quit Using Tobacco: 42; Cigarettes Per Day: 1; Smoking End Date: 1980; Second Hand Exposure: No; Hx Alcohol Use: Yes Alcohol type: wine Alcohol Intake Frequency: 2-3 x/Week Hx Substance Use: No Preferred Language: Vietnamese Communication Ability: Effective Visual Impairment: Limited Hearing Ability: 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 of 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 Aid 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 Required: No Beliefs That Will Affect Care: None marital status: Current Living Situation: Family Current Living Situation Comment: Lives with Son and his family current occupational status: retired How many Children do You have: 2 Other Information That Helps Us Care for You: No Feels Safe at Home: Yes Safety Concerns: Feels Safe At This Time Childhood Exposure to Second-Hand Smoke: Yes (both parents smoked ) caffeine: Yes (coffee 1-2 cups a day ) Dental Care, Regularly: Yes Physical Activity Frequency: Does not Exercise Seatbelt Use: always Sunscreen Use: Yes Assistive Devices: Denture - Upper, Denture - Lower, Glasses and Hearing Aid - Bilateral Physical Exam Physical Exam: Gen.: No acute distress. Alert and oriented. HEENT: Anicteric sclera. Neck: No JVD. No bruits. Normal carotid upstrokes bilaterally. Cardiac: PMI was nondisplaced. No ventricular heave. Regular. Normal S1-S2. No murmurs, rubs, or gallops. Pulmonary: Clear to auscultation bilaterally without wheezes, rales, or rhonchi. Abdomen: Soft, nondistended, with normoactive bowel sounds. No bruits noted. Epigastric tenderness, reproducing pain described in HPI. Extremities: 2+ radial pulses bilaterally. 2+ posterior tibialis pulses bilaterally. No edema or cyanosis. Psychiatric: Affect appears appropriate. Results & Data ([facility]) Vital Signs (Past 12 Hours) Vital Signs Temp Pulse Pulse Resp BP Pulse Ox 12/06/21 15:15 36.7 C 60 20 152/66 H 98 12/06/21 14:54 62 12/06/21 11:13 36.8 C 61 20 128/61 97 12/06/21 07:16 36.6 C 66 16 145/66 H 97 12/06/21 07:05 67 Laboratory Results Laboratory Results - last 24 hr 12/05/21 12/06/21 12/06/21 22:17 05:52 05:52 WBC 5.33 RBC 4.08 L Hgb 12.4 Hct 36.8 L MCV 90.2 MCH 30.4 MCHC 33.7 RDW Std Deviation 41.9 RDW Coeff of David 12.8 Plt Count 228 MPV 11.1 H Immature Gran % (Auto) 0.2 Neut % (Auto) 46.2 Lymph % (Auto) 38.6 [place] % (Auto) 10.1 Eos % (Auto) 3.2 Baso % (Auto) 1.7 Neut # (Auto) 2.46 Lymph # (Auto) 2.06 [place] # (Auto) 0.54 Eos # (Auto) 0.17 Baso # (Auto) 0.09 Immature Gran # (Auto) 0.01 Sodium 138 Potassium 4.0 Chloride 109 H Carbon Dioxide 24 Anion Gap 5 BUN 14 Creatinine 0.92 Est Cr Clr Drug Dosing 53.4 Est GFR ( Amer) 71.1 Est GFR (Non-Af Amer) 61.3 BUN/Creatinine Ratio 15.2 Glucose 89 Calcium 8.3 L Troponin I High Sens 270.7 H* D Amylase Lipase 12/06/21 12/06/21 12/06/21 05:52 05:52 10:26 WBC RBC Hgb Hct MCV MCH MCHC RDW Std Deviation RDW Coeff of David Plt Count MPV Immature Gran % (Auto) Neut % (Auto) Lymph % (Auto) [place] % (Auto) Eos % (Auto) Baso % (Auto) Neut # (Auto) Lymph # (Auto) [place] # (Auto) Eos # (Auto) Baso # (Auto) Immature Gran # (Auto) Sodium Potassium Chloride Carbon Dioxide Anion Gap BUN Creatinine Est Cr Clr Drug Dosing Est GFR ( Amer) Est GFR (Non-Af Amer) BUN/Creatinine Ratio Glucose Calcium Troponin I High Sens 245.0 H* 212.2 H* Amylase 33 Lipase 19 Diagnostic Findings On 12/06/2021, chart, echo report, stress echo report reviewed as noted above in HPI. Echo 12/06/2021 normal LV size, wall motion, systolic function. EF 60-65%. Mild LVH. No significant valvular abnormalities. ECGs personally reviewed: ECG 12/05/2021 at 5:31 p.m.: Sinus rhythm 60 bpm. RBBB. ECG 12/05/2021 at 7:23 p.m.: Sinus rhythm 71 bpm. RBBB. CTA chest 12/05/2021: No PE. No acute process within the chest. Medications Administered Current Inpatient Medications Acetaminophen (Acetaminophen 325 Mg Tab) 650 mg PO Q4H PRN PRN Reason: pain/fever Stop: 01/04/22 21:45 Last Admin: 12/06/21 15:22 Dose: 650 mg Documented by: Enoxaparin Sodium (Enoxaparin Inj 40 Mg/0.4 Ml Syr) 40 mg SQ Q24H [facility] Stop: 01/05/22 08:59 Last Admin: 12/06/21 07:44 Dose: 40 mg Documented by: Famotidine (Famotidine 20 Mg Tab) 20 mg PO QAM [facility] Stop: 01/06/22 08:59 Fluoxetine HCl (Fluoxetine Hcl 20 Mg Cap) 40 mg PO QAM [facility] Stop: 01/05/22 08:59 Last Admin: 12/06/21 07:43 Dose: 40 mg Documented by: Fluticasone Propionate (Fluticasone Propionate Na Spr 16 Gm Btl) 1 sprays DONELL BID [facility] Stop: 01/05/22 08:59 Last Admin: 12/06/21 19:58 Dose: 1 sprays Documented by: Multivitamins/Minerals (Cerovite Adv Formula Tab) [facility] Stop: 01/05/22 08:59 Last Admin: 12/06/21 07:44 Dose: 1 tab Documented by: Nitroglycerin (Nitroglycerin Sl 0.4 Mg/Tab Tab) 0.4 mg SL PRN PRN PRN Reason: Chest Pain Stop: 01/04/22 19:28 Last Admin: 12/05/21 19:36 Dose: 0.4 mg Documented by: Nitroglycerin (Nitroglycerin 2% Ointment 30gm Tube) 2 inch EXT Q6H [facility] Stop: 01/04/22 20:14 Last Admin: 12/06/21 20:20 Dose: 2 inch Documented by: Pantoprazole Sodium (Pantoprazole 40 Mg Tab) 40 mg PO BID [facility] Stop: 01/05/22 20:59 Last Admin: 12/06/21 19:59 Dose: 40 mg Documented by: Simvastatin (Simvastatin 20 Mg Tab) 20 mg PO [facility] Stop: 01/05/22 20:59 Last Admin: 12/06/21 19:59 Dose: 20 mg Documented by: Telmisartan (Telmisartan 40 Mg Tab) 40 mg PO [facility] Stop: 01/05/22 08:59 Last Admin: 12/06/21 07:44 Dose: 40 mg Documented by: Vitamin D (Cholecalciferol 1,000 Units 25 Mcg Tab) 1,000 units PO [facility] Stop: 01/05/22 08:59 Last Admin: 12/06/21 07:43 Dose: 1,000 units Documented by: PG Care Time/CCT Total # of Minutes Spent Total Time Spent with Patient: Total time spent is greater than 50% in coordination of care (as documented) at patient's floor/unit and/or counseling patient: Coding Level of Care Code 48358 Office/Outpt Visit, Est Diagnoses Epigastric discomfort R10.13 Exertional chest pain R07.9 Elevated troponin R77.8 Hypertension I10
--- NOTE | 2021-12-06 19:15 | Billing Data ---
Date of Service December 06, 2021 Coding Level of Care Code 43303 Subseq Obs Care Lvl 3
--- NOTE | 2021-12-06 19:16 | Hospitalist Progress Note ---
Date of Service December 06, 2021 Assessment & Plan Admission and Anticipated Discharge Date Admission Date: December 05, 2021 Results & Data Results & Data ([facility]) Vital Signs (Past 12 Hours) Vital Signs Temp Pulse Pulse Resp BP Pulse Ox 12/06/21 15:15 98.1 F 60 20 152/66 H 98 12/06/21 14:54 62 12/06/21 11:13 98.2 F 61 20 128/61 97 12/06/21 07:16 97.9 F 66 16 145/66 H 97 PG Care Time/CCT Total # of Minutes Spent Total Time Spent with Patient: Total time spent is greater than 50% in coordination of care (as documented) at patient's floor/unit and/or counseling patient: Coding Level of Care Code None CPT Codes Musculoskeletal - Musculoskeletal: 7[address] 1-2 Body regions ([id number])
[2021-12-06] MEDS: PANTOprazole 40 MG TAB PO SCH (19:59)
[2021-12-06] MEDS ORDERED: SIMVASTATIN 20 MG TAB PO SCH (21:00)
--- NOTE | 2021-12-06 22:52 | Electrocardiogram Report ---
Test Reason : Blood Pressure : / mmHG Vent. Rate : 060 BPM Atrial Rate : 060 BPM P-R Int : 156 ms QRS Dur : 120 ms QT Int : 470 ms P-R-T Axes : 035 016 -14 degrees QTc Int : 470 ms Normal sinus rhythm Right bundle branch block Abnormal ECG When compared with ECG of 01-MAR-2021 12:54, No significant change was found Confirmed by Vinicius Narayan ([id number]) on 12/06/2021 10:52:39 PM Referred By: REFERRED SELF Confirmed By:Vinicius Narayan
--- NOTE | 2021-12-06 22:56 | Electrocardiogram Report ---
Test Reason : Blood Pressure : / mmHG Vent. Rate : 071 BPM Atrial Rate : 071 BPM P-R Int : 182 ms QRS Dur : 130 ms QT Int : 438 ms P-R-T Axes : 065 024 -25 degrees QTc Int : 475 ms Normal sinus rhythm Right bundle branch block T wave abnormality, consider inferolateral ischemia Abnormal ECG When compared with ECG of 05-DEC-2021 17:31, No significant change was found Confirmed by Vinicius Narayan ([id number]) on 12/06/2021 10:56:44 PM Referred By: REFERRED SELF Confirmed By:Vinicius Narayan
--- NOTE | 2021-12-07 02:03 | Billing Data ---
Date of Service December 07, 2021 Coding Level of Care Code INT OBSERVATION CARE 70M LVL 3
[2021-12-07] MEDS: NITROGLYCERIN 2% OINTMENT 30GM TUBE EXT SCH ×2 (03:24→09:17)
[2021-12-07] MEDS ORDERED: ACETAMINOPHEN 325 MG TAB PO STA (03:51)
[2021-12-07] MEDS ORDERED: KETOROLAC TROMETHAMINE 15 MG/ML VIAL IV ONE (03:51)
[2021-12-07 08:23] LABS: Calcium 8.7 mg/dl (8.5-10.1); Creatinine Clr Calc Pharmacy 41.2 ml/min; Est GFR (African American) 52.1 ml/min; Est GFR (Non-African American) 44.9 ml/min
[2021-12-07] MEDS ORDERED: FAMOTIDINE 20 MG TAB PO SCH (09:00)
[2021-12-07] MEDS ORDERED: REGADENOSON 0.4 MG/5 ML SYR IV ONE (09:43)
[2021-12-07] MEDS: PANTOprazole 40 MG TAB PO SCH (12:00)
[2021-12-07] MEDS: FLUoxetine HCL 20 MG CAP PO SCH (12:00)
[2021-12-07] MEDS: ENOXAPARIN INJ 40 MG/0.4 ML SYR SQ SCH (12:00)
[2021-12-07] MEDS: CHOLECALCIFEROL 1,000 UNITS 25 MCG TAB PO SCH (12:00)
[2021-12-07] MEDS: CEROVITE ADV FORMULA TAB PO SCH (12:00)
[2021-12-07] MEDS: TELMISARTAN 40 MG TAB PO SCH (12:00)
[2021-12-07] MEDS: FLUTICASONE PROPIONATE NA SPR 16 GM BTL NAE SCH (12:01)
--- NOTE | 2021-12-07 12:27 | Myocardial Perfusion Study ---
Date of Service December 07, 2021 Myocardial Perfusion Study k Myocardial Perfusion Study Report [place] Act 112: Negative One day nuclear medicine technetium 99m Cardiolite myocardial perfusion scan Clinical history: This stress test is being performed because of a chest pain syndrome. Comparison: None Technique: For the stress portion of the study, 33.2 mCi of technetium 99m Cardiolite IV was injected at 11:06 a.m. on December 07 2021. Thirty minutes following the injection, imaging of the heart was performed in multiple projections. For the rest portion of the study, 10.3 mCi of technetium 99m Cardiolite was injected IV at 9:30 a.m. on December 07, 2021. One hour following the injection, imaging of the heart was performed in the same projections. Stress portion: The patient was given 0.4 mg of intravenous Lexiscan while being monitored continuously. The patient did not experience chest discomfort. Baseline EKG notes normal sinus rhythm with a complete right bundle branch block. There were no significant ST segment changes seen during the protocol. There were no dysrhythmias. Findings: The short axis, vertical long axis, and horizontal long axis images were reviewed in detail. There was normal myocardial perfusion at both stress and rest thus excluding a prior myocardial infarction or evidence of stress induced myocardial ischemia. The inferior wall is attenuated by the diaphragm as noted on the rotating images. The left ventricle demonstrates normal systolic function without wall motion abnormalities. The left ventricular ejection fraction is 80%. Conclusions: 1. No definite scintigraphic evidence of a prior myocardial infarction or stress-induced myocardial ischemia. 2. No exercise-induced chest pain. 3. No EKG changes. 4. Normal left ventricular systolic function without wall motion abnormality. Left ventricular ejection fraction is 80%. [facility] Myocardial perfusion code Procedure Code Procedure 1: Myocardial Perfusion Codes: 85616 Cardiovascular Stress Test, multiple Procedure 2: Myocardial Perfusion Codes: 70519 Cardiovascular Stress Test, supervision only Procedure 3: Myocardial Perfusion Codes: 44210 Cardiovascular Stress Test, interpretation and report
--- NOTE | 2021-12-07 12:53 | Cardiology Progress Note ---
Date of Service December 07, 2021 Assessment & Plan (1) Epigastric discomfort: (2) Exertional chest pain: (3) Elevated troponin: (4) Hypertension: Plan: ASSESSMENT/PLAN: 1. Chest pain: Exertional chest heaviness was described, however her prominent pain was epigastric and related to food. The exertional pain could be consistent with ischemic heart disease. Unremarkable stress echo in 2020, but poor exercise tolerance. Myocardial perfusion study today. Able to ambulate in the hallway without anginal symptoms. 2. Elevated troponin: Troponin elevated but not suggestive of acute coronary syndrome. Plan as above. Risk factor modification. 3. Epigastric discomfort: Highly suggestive of GI etiology. Chronic issue. Has followed with GI. Reproducible on exam. Defer to primary service. 4. Hypertension: Blood pressure mostly hypertensive. Titrate medical therapy. 5. Disposition: Myocardial perfusion study was performed after this morning's visit. When personally reviewing images, the inferior and inferolateral wall appear to have a reversible defect, suggesting ischemia. Given her exertional chest heaviness and risk factors for CAD, would consider further evaluation. She has not had any rest symptoms consistent angina. When the images were reviewed in the nuclear stress lab, she had already been discharged home. She was discharged on beta-cynthia, initiated by primary hospitalist service. Will arrange follow-up in the cardiology office next week. The stress test does not suggest high risk lesion. Admission and Anticipated Discharge Date Admission Date: December 05, 2021 Subjective Patient seen this morning at approximately 9 AM. Her epigastric pain has improved. She has not had any further chest heaviness. She ambulated in the hallway without symptoms. She denies shortness of breath, syncope, near- syncope, palpitations, edema, or bleeding. She was alone in her hospital room. Review of systems: As above. Physical Exam Physical Exam: Gen.: No acute distress. Alert and oriented. HEENT: Anicteric sclera. Neck: No JVD. Cardiac: No ventricular heave. Regular. Normal S1-S2. No murmurs, rubs, or gallops. Pulmonary: Clear to auscultation bilaterally without wheezes, rales, or rhonchi. Abdomen: Soft, nondistended, with normoactive bowel sounds. No bruits noted. Very mild epigastric tenderness. Extremities: 2+ radial pulses bilaterally. 2+ posterior tibialis pulses bilaterally. No edema or cyanosis. Psychiatric: Affect appears appropriate. Results & Data ([facility]) Vital Signs (Past 12 Hours) Vital Signs Temp Pulse Resp BP BP Pulse Ox 12/07/21 12:07 36.6 C 67 18 177/78 H 98 12/07/21 08:04 36.9 C 58 L 18 148/67 H 97 12/07/21 03:34 36.9 C 73 20 121/62 97 Laboratory Results Laboratory Results - last 24 hr 12/07/21 07:16 Sodium 137 Potassium 4.0 Chloride 107 Carbon Dioxide 25 Anion Gap 5 BUN 19 Creatinine 1.19 Est Cr Clr Drug Dosing 41.2 Est GFR ( Amer) 52.1 Est GFR (Non-Af Amer) 44.9 BUN/Creatinine Ratio 16.0 Glucose 90 Calcium 8.7 Diagnostic Findings Telemetry reviewed: Sinus rhythm. Medications Administered Current Inpatient Medications Acetaminophen (Acetaminophen 325 Mg Tab) 650 mg PO Q4H PRN PRN Reason: pain/fever Stop: 01/04/22 21:45 Last Admin: 12/06/21 23:03 Dose: 650 mg Documented by: Enoxaparin Sodium (Enoxaparin Inj 40 Mg/0.4 Ml Syr) 40 mg SQ Q24H [facility] Stop: 01/05/22 08:59 Last Admin: 12/07/21 12:00 Dose: 40 mg Documented by: Famotidine (Famotidine 20 Mg Tab) 20 mg PO QAM [facility] Stop: 01/06/22 08:59 Last Admin: 12/07/21 12:00 Dose: 20 mg Documented by: Fluoxetine HCl (Fluoxetine Hcl 20 Mg Cap) 40 mg PO QAM [facility] Stop: 01/05/22 08:59 Last Admin: 12/07/21 12:00 Dose: 40 mg Documented by: Fluticasone Propionate (Fluticasone Propionate Na Spr 16 Gm Btl) 1 sprays DONELL BID [facility] Stop: 01/05/22 08:59 Last Admin: 12/07/21 12:01 Dose: 1 sprays Documented by: Multivitamins/Minerals (Cerovite Adv Formula Tab) 1 tab PO QAM [facility] Stop: 01/05/22 08:59 Last Admin: 12/07/21 12:00 Dose: 1 tab Documented by: Nitroglycerin (Nitroglycerin Sl 0.4 Mg/Tab Tab) 0.4 mg SL PRN PRN PRN Reason: Chest Pain Stop: 01/04/22 19:28 Last Admin: 12/05/21 19:36 Dose: 0.4 mg Documented by: Pantoprazole Sodium (Pantoprazole 40 Mg Tab) 40 mg PO BID [facility] Stop: 01/05/22 20:59 Last Admin: 12/07/21 12:00 Dose: 40 mg Documented by: Simvastatin (Simvastatin 20 Mg Tab) 20 mg PO HS [facility] Stop: 01/05/22 20:59 Last Admin: 12/06/21 19:59 Dose: 20 mg Documented by: Telmisartan (Telmisartan 40 Mg Tab) 40 mg PO QAM [facility] Stop: 01/05/22 08:59 Last Admin: 12/07/21 12:00 Dose: 40 mg Documented by: Vitamin D (Cholecalciferol 1,000 Units 25 Mcg Tab) 1,000 units PO QAM [facility] Stop: 01/05/22 08:59 Last Admin: 12/07/21 12:00 Dose: 1,000 units Documented by: PG Care Time/CCT Total # of Minutes Spent Total Time Spent with Patient: Total time spent is greater than 50% in coordination of care (as documented) at patient's floor/unit and/or counseling patient: Coding Level of Care Code 27012 Office/Outpt Visit, Est Diagnoses Epigastric discomfort R10.13 Exertional chest pain R07.9 Elevated troponin R77.8 Hypertension I10
--- NOTE | 2021-12-07 13:10 | Discharge Summary ---
Date of Service December 07, 2021 Admission HPI Per Admitting Provider This is a 72-year-old female with a notable history of hiatal hernia, esophageal dysphagia, GERD, IBS, hyperlipidemia, goiter, hypertension, depression who presents to [facility] for evaluation of headache, shortness of breath, chest pain. Patient says that over the last year or so, she has had intermittent, episodic episodes of epigastric/substernal squeezing type chest pressure that is positionally related (gets worse with lying down) and somewhat prandially related. She says that she has a significant history of GI issuesincluding hiatal hernia, GERD, dysphagia. She says that over the past few weeks, this discomfort has become more frequent. It is never present with exertion/shortness of breath. She notices that if she eats late at night and goes to bed and lies down, she notices the pain more. Occasionally when she consumes alcohol, this causes the pain as well. She says that sometimes it is improved with famotidine and omeprazole. She denies any waking up coughing or short of breath. She feels the issue has been becoming more frequent. She says that over the last week, she is also had a headache. She describes it as bitemporal with some associated sinus discomfort. She denies excessive sinus drainage. Denies any fevers, chills, night sweats. She was prescribed an antibiotic by her primary care prescriber earlier today in attempt to help with the symptoms. She denies dental pain, coughing, shortness of breath. She lives at home with her son and [id number]. She denies tobacco history. She denies regular alcohol use. Denies history of recreational drug use. In the ED, patient was found to have hypertension at 197/85 with otherwise normal vital signs. CBC without appreciable abnormality. Basic chemistry normal. High-sensitivity troponin did result positive at 195. ECG: Normal sinus rhythm at 60 bpm, no ectopy; OK normal, QRS in V2V4 with RSR prime type pattern; normal axis, normal transition; difficult to interpret R wave progression in the setting of RSR prime; no concordant pathologic use; no voltage evidence of LVH; T wave abnormality appreciated in inferior leads as well as anteroseptal leads in the setting of suspected right conduction delay. Abnormal EKG. Unchanged compared to prior 02/28. CTA without pulmonary emboli, active disease in the chest. She was given aspirin 324, nitroglycerin. Principal Diagnosis GERD Discharge Exam Constitutional WD/WN, vitals as above Eyes PERRL, conjunctivae normal, anicteric sclerae Respiratory normal respiratory effort, lungs clear to auscultation Cardiovascular Rate/Rhythm: regular rate and regular rhythm Vessels: normal peripheral pulses; no JVD Extremities: no edema Gastrointestinal (Abdomen) Inspection/Auscultation: normal bowel sounds; abdomen not distended Percussion/Palpation: abdomen soft; abdomen nontender and no guarding Psychiatric Orientation: alert and oriented x 3 Discharge Data Allergies Allergy/AdvReac Type Severity Reaction Status Date / Time minocycline Allergy Unknown UNKNOWN Verified 12/05/21 16:15 tetracycline Allergy Unknown Unknown Verified 12/05/21 16:15 Consultations 12/05/21 20:05 ED Decision to Admit Stat 12/06/21 11:11 Consult Cardiology Routine Ordered Studies 12/05/21 18:32 CT angio chest PE protocol Stat Hospital Course (1) Epigastric discomfort: 72yo female with a history of hiatal hernia, esophageal dysphagia, GERD, IBS, HTN, HLD, goiter, and depression presents to [facility] for evaluation of a one- year history of increasingly-frequent episodes of non-exertional epigastric/low chest discomfort, subsequently found to have a detectable troponin level. Epigastric/chest pain: - Suspect symptoms are GI related (reflux vs esophageal spasm vs other), given pain is non-exertional/worsened by meals/laying flat/alcohol; however, differential includes unstable angina - Patient presenting with a one-year history of increasingly-frequent episodes of non-exertional epigastric/low chest discomfort, worsened by meals, laying flat, and alcohol - Initial Troponin detectable, repeat value (2hr) higher, though third value (6hr after 2nd) had fallen - CTA without evidence of PE or other acute condition; patient's known hiatal hernia was noted as well - EKG shows NSR with some nonspecific T-wave inversion, but without overt ischemic change - Patient underwent EGD in February of 2021 for similar symptoms with no abnormalities noted - Stress echo last March which was normal (EF 60-65%, normal LV function), repeat echo performed during this admission (12/06) findings same as prior - Nuclear med study demonstrated no definitive evidence of a prior myocardial infarction or stress-induced myocardial ischemia. - Symptoms improved with GI cocktail and pepcid - transitioned home regimen to pantoprazole 40mg bid and famotidine 20mg for two weeks to address inflammation concerns, with advisement of return to Omeprazole 20mg daily after completion of two week regimen Hypertension: - continue home telmisartan - added Metoprolol succinate 25mg daily given persistent HTN in hospital Hyperlipidemia: - continue home simvastatin GERD: - patient's home omeprazole held on admission - continue pantoprazole and famotidine as above Major Depressive Disorder: - continue home fluoxetine (2) Hyperlipidemia: (3) Chronic GERD: (4) Benign essential HTN: (5) Depression: Total Time Total Time Spent Total Time Spent (In Minutes): 30 Discharge Plan Discharge Items Patient Disposition: Home - Self-Care Reason For Visit: CHEST PAIN Discharge Diagnosis: Chest pain Activity: Per Instructions section Non-emergency contact: Primary Care Provider and Psychiatric Rn Call non-emergency contact if: you have any medication questions and you have a fever Follow-up/Referrals: Isbaela Colvin MD [Primary Care Provider] - 12/17/21 2:00 pm (Appointment with KRISHNA Petit) Diet: Heart Healthy Addtl Attending Provider Instructions: You were seen and admitted for concerns of chest pain, and while this was thought to be due to your reflux, with the development of a slightly elevated heart marker, it was important to have further work-up to investigate if your pain was from injury to your heart. Fortunately during this work-up the testing continued to come back reassuring and as such we feel comfortable with discharging you at this time. Given the concerns about your reflux we have made slight changes to your medication regimen for the coming 2 weeks. These look like: - please take 40mg of protonix (a version of you omeprazole) twice a day for two weeks - additionally take 20mg of Pepcid (famotidine) daily At the conclusion of this two week regimen you can return to your previous acid suppression regimen. It is important that you continue to work with your PCP and your supervisor salvage to address your chronic acid reflux (GERD), and your h iatal hernia as it is possible that these symptoms continue to recur over time. Pending Studies at Discharge: No Stand-Alone Forms: My [employer], Smoking Cessation Medications and DC Order Prescriptions: New pantoprazole 40 mg Tablet,Delayed Release (Dr/Ec) 40 mg PO BID 30 Days Qty: 60 RF: 0 famotidine [Pepcid] 20 mg tablet 20 mg PO DAILY 14 Days Qty: 14 RF: 0 metoprolol succinate 25 mg tablet extended release 24 hr 25 mg PO DAILY 30 Days Qty: 30 RF: 0 Continued fluoxetine 40 mg capsule 40 mg PO QAM Qty: 90 RF: 3 simvastatin 20 mg tablet 20 mg PO HS Qty: 90 RF: 3 fluticasone propionate [Flonase Allergy Relief] 50 mcg/actuation spray,suspension 1 spray intranasal BID Qty: 15.8 RF: 8 multivitamin with minerals [Multiple Vitamin-Minerals] tablet 1 tab PO QAM RF: 0 cholecalciferol (vitamin D3) [Vitamin D3] 25 mcg (1,000 unit) Tablet,Chewable 25 mcg PO QAM RF: 0 biotin 1,000 mcg Tablet,Chewable 1,000 mcg PO QAM RF: 0 telmisartan 40 mg tablet 40 mg PO QAM RF: 0 Discontinued amoxicillin-pot clavulanate 875-125 mg tablet 1 tab PO BID Qty: 14 RF: 0 omeprazole 20 mg capsule,delayed release(DR/EC) 20 mg PO QAM RF: 0 Discharge Orders: Discharge Order (Routine); Ordered 12/07/21 Ordered By: Mann Sosa Admission Data Admit Date/Time: 12/05/21 21:07 Attending Provider: Rodney Reyes Admit Provider: Kojo Barr Primary Care Provider: Isabela Colvin Other Providers: Kojo Barr ; Sebastián Yeung ; Rj Romeo ; Luther Victor ; Josr Cox ; Carlos Nunez ; Darin Zayas Jr ; Vinicius Narayan ; Deb Huitron ; Marisa Shrestha ; Kelvin Fitch ; Luke Santa ; Favian Forte ; Kathleen Prince ; Mary Bazan ; Tony Le ; Wang Cai Michael K. ; Kenneth Boyd Other Interventions: Discharge Summary Assessment (RN) Last Done: 12/07/21 13:09 Supervising Physician Co-Signing Physician Notes I personally examined the patient and verified all vargas points of history and exam, discussed case, and agree with decision making with Dr Sosa headache improved. chest pain resolved. Vitals noted, in general she is awake and alert pleasant no distress. HEENT normocephalic atraumatic mucous membranes moist. Breathing unlabored no accessory muscle use good effort. no focal neuro deficits. Chest painsymptoms actually seem extremely consistent with upper GI Mildly elevated troponinhard to explain otherwisestress test negative -- so overall reassuring -- beta cynthia to be safe. but safe/stable for home Headachetension headache - improved. Otherwise as above. stable, safe for home Resident Activity Tracking Resident Involvement: Resident Care Provided Care Provided: Adult Hospital Medicine
--- NOTE | 2021-12-07 13:47 | Electrocardiogram Report ---
Test Reason : Blood Pressure : / mmHG Vent. Rate : 059 BPM Atrial Rate : 059 BPM P-R Int : 188 ms QRS Dur : 126 ms QT Int : 444 ms P-R-T Axes : 072 041 -27 degrees QTc Int : 439 ms Sinus bradycardia Right bundle branch block T wave abnormality, consider inferior ischemia Abnormal ECG When compared with ECG of 05-DEC-2021 19:23, No significant change was found Confirmed by Luther Victor ([id number]) on 12/07/2021 1:46:39 PM Referred By: REFERRED SELF Confirmed By:Luther Victor
--- NOTE | 2021-12-07 17:03 | Billing Data ---
Date of Service December 07, 2021 Coding Level of Care Code 90361 OBS Care - Discharge
== END 2021-12-07 14:55 | disposition home or self-care (01) ==
LOC: 2N 17:21 → ED 17:21 → SUATTDRO 21:07 → 2N 22:55

== ENCOUNTER 2022-01-16 14:13 | Observation (INO) ==
[2022-01-16] MEDS ORDERED: ONDANSETRON INJ 2 MG/ML 2 ML VIAL ONE (15:01)
[2022-01-16] MEDS ORDERED: NITROGLYCERIN SL 0.4 MG/TAB TAB ONE (15:01)
[2022-01-16] MEDS ORDERED: LORazepam 0.5 MG TAB PO STA (15:02)
[2022-01-16] MEDS ORDERED: LORazepam 0.5 MG TAB ONE (15:02)
[2022-01-16] MEDS ORDERED: SODIUM CHLORIDE 0.9% 1000ML 1,000 ML IV ONE (15:09)
[2022-01-16 15:33] LABS: Basophils # (auto) 0.06 K/uL (0-0.2); Eosinophils # (auto) 0.15 K/uL (0-0.5); Eosinophils % (auto) 2.4 %; Hemoglobin 13.3 g/dL (12.0-16.0); Immature Granulocytes # (auto) 0.01 K/uL (0.00-0.02); Immature Granulocytes % (auto) 0.2 %; Lymphocytes % (auto) 26.9 %; Mean Corpuscular Hemoglobin 30.6 pg (25-34); Mean Corpuscular Hgb Conc 34.1 g/dL (32-36); Mean Corpuscular Volume 89.9 fL (80-100); Mean Platelet Volume 10.9 fL (7.4-10.4); Monocytes # (auto) 0.78 K/uL (0.11-0.59); Monocytes % (auto) 12.4 %; Neutrophils # (auto) 3.61 K/uL (1.4-6.5); Neutrophils % (auto) 57.1 %; Platelet Count 291 K/uL (130-400); RDW Coefficient of Variation 12.4 % (11.5-14.5); RDW Standard Deviation 41.5 fL (36.4-46.3); Red Blood Count 4.34 M/uL (4.2-5.4); White Blood Count 6.31 K/uL (4.8-10.8)
[2022-01-16 15:34] LABS: Partial Thromboplastin Ratio 0.8; Partial Thromboplastin Time 21.1 Seconds (21.0-31.0); Prothrombin Time 10.4 Seconds (9.0-12.0)
--- NOTE | 2022-01-16 15:48 | CT Scan Report ---
CT head/brain wo con CLINICAL HISTORY: 76 years-old Female with syncope. Acute syncope TECHNIQUE: Multiple axial CT images of the head were obtained without contrast. A dose lowering tech nique was utilized adhering to the principles of ALARA. CT DOSE: 537.48 mGy.cm COMPARISON: None. FINDINGS: No acute intracranial hemorrhage, midline shift, intracranial mass, hydrocephalus, territorial ischem ia or abnormal extra-axial collection. Age-related involutional changes. Mild white matter hypodensit ies suggestive of chronic microvascular ischemic disease. The calvarium is intact. Prior bilateral lens replacement. The paranasal sinuses, mastoid air cells, and middle ear cavities are clear. IMPRESSION: No acute intracranial abnormality or calvarial fracture. ACT 112: Negative or not required by law. The above report was generated using voice recognition software. It may contain grammatical, syntax o r spelling errors. Electronically signed by: Virgil Mckeon M.D. 01/16/2022 3:47 PM
[2022-01-16 15:52] LABS: Troponin I High Sensitivity 3.1 pg/ml (0-14)
[2022-01-16 15:55] LABS: BUN Creatinine Ratio 19.2 (10-20); Calcium 9.2 mg/dl (8.5-10.1); Creatinine Clr Calc Pharmacy 66.2 ml/min; Est GFR (African American) 46.8 ml/min; Est GFR (Non-African American) 40.4 ml/min; Potassium 3.8 mmol/L (3.5-5.1)
--- NOTE | 2022-01-16 16:16 | XRay Report ---
SINGLE VIEW CHEST CLINICAL HISTORY: Atypical chest pain. FINDINGS: An AP, portable, upright chest radiograph is compared to chest x-ray and chest CT dated 11/10. The cardiomediastinal silhouette is unremarkable. There is mild bibasilar atelectasis. The xu ngs and pleural spaces are otherwise clear. No pneumothorax is seen. The skeletal structures are oste openic. The bony thorax is grossly intact. IMPRESSION: No active disease in the chest. ACT 112: Negative or not required by law. Electronically signed by: Dennis Younger M.D. 01/16/2022 4:15 PM
--- NOTE | 2022-01-16 16:33 | History & Physical Report ---
Date of Service January 16, 2022 Assessment & Plan (1) Chest pain: Plan: - Ongoing x24 hours at this point with associated lightheadedness, SOB, diaphoresis, n/v, syncope. ? whether this is cardiac vs GI. - Recent RCA PCI last month. - EKG with known RBBB, t wave inversions. - Initial trop 3.1--repeat in 2 hours. If negative, low suspicion this is car diac in nature. - Received nitro and Ativan which relieved chest pain. - On telemetry bed. - Cardiology consulted, appreciate their recommendations. (2) Syncope: Plan: - Cause thought to be cardiac vs orthostatic vs due to SL nitro. Did occur with chets pain, shortly after nitro was given. - LRs at 125 cc/hr, trending troponins as above, obtain orthostatic VS. - Head CT without acute process. - Continue to monitor. (3) SUBHASH (acute kidney injury): Plan: - BUN 25, Cr 1.30, Cr baseline ~ 1-1.2 - Suspect dehydration, patient reports very poor water intake. - Hold ARB, avoid nephrotoxins and renally dose medications as able. - LRs @ 125 cc/hr. (4) Coronary artery disease: Plan: - s/p RCA PCI last month. - Continue DAPT w/ ASA+Plavix, statin, nitroglycerin prn. Continue ARB when SUBHASH resolves. (5) Hypertension: Plan: - Continue amlodipine 2.5mg BID. Holding telmisartan d/t SUBHASH. (6) Hyperlipidemia: Plan: - Continue atorvastatin 80 mg daily. (7) Chronic GERD: Plan: - Continue Protonix 40 mg twice daily. - Follows with [facility] as outpatient. (8) Hiatal hernia: (9) Depression: Plan: - Continue fluoxetine. (10) Irritable bowel syndrome: Plan: - OBS med/tele. - SCDS for DVT ppx. - Full Code. History of Present Illness Chief Complaint: chest pain with syncopal episode Primary Care Provider: Isabela Colvin MD Ana Cobb is a 76-year-old male with past medical history significant for CAD s/p RCA PCI on 12/19/2021, hypertension, hyperlipidemia, GERD esophageal dysphagia, hiatal hernia, IBS, and depression who presents today for evaluation of chest pain. Patient was out shopping last evening, talking with a family member when she felt herself become short of breath with conversation, and developed a central chest pressure with associated nausea and diaphoresis. She took nitroglycerin at home, notes it was the first time taking it, and it did relieve her chest pain but she got dizzy. The chest pain came and went throughout the night, never radiating or becoming more than a 5-6/10. Then, today she as at cardiology f/u appt when she relayed this information and also noted she was having the same chest pain then. ECG in the office showed sinus rhythm with RBBB and nonspecific T wave abnormality. She was also given nitro, following administration she was lightheaded and passed out in her chair and vomited. She was found to be hypotensive with SBP 90s. After a few minutes, she regained consciousness and EMS was called and she was taken to the ED for further evaluation. In ED, initially presented with RR 32, hypertensive with SBP 160/61, otherwise vital signs within normal limits and stable. Labs significant for BUN 25, creatinine 1.30 (baseline 0.91.0). Initial HS trop 3.1. Head CT and CXr unremarkable. Patient was given nitro, Ativan, Zofran, and IVF in ED. Hospitalist service consutled for further evaluation and admission. Allergies Allergy/AdvReac Type Severity Reaction Status Date / Time minocycline Allergy Unknown UNKNOWN Verified 01/16/22 15:26 tetracycline Allergy Unknown Unknown Verified 01/16/22 15:26 Home Medications Medication Instructions Recorded Confirmed Type multivitamin with minerals 1 tab PO QAM tab 04/27/19 01/16/22 History (Multiple Vitamin-Minerals) biotin 1,000 mcg chewable tablet 1,000 mcg PO QAM 03/05/21 01/16/22 History cholecalciferol (vitamin D3) 25 25 mcg PO QAM 03/05/21 01/16/22 History mcg (1,000 unit) chewable tablet (Vitamin D3) fluoxetine 40 mg capsule 40 mg PO QAM #90 cap 06/14/21 01/16/22 Rx fluticasone propionate 50 1 spray INTRANASAL BID #15.8 ml 10/23/21 01/16/22 Rx mcg/actuation nasal spray,suspension (Flonase Allergy Relief) telmisartan 40 mg tablet 40 mg PO QAM 12/05/21 01/16/22 History aspirin 81 mg tablet,delayed 81 mg PO DAILY #30 tab 12/19/21 01/16/22 Rx release (Adult Low Dose Aspirin) atorvastatin 80 mg tablet 80 mg PO HS #90 tab 12/19/21 01/16/22 Rx clopidogrel 75 mg tablet 75 mg PO DAILY #30 tab 12/19/21 01/16/22 Rx nitroglycerin 0.4 mg sublingual 0.4 mg SUBLINGUAL Q5M PRN #25 tab 12/27/21 01/16/22 Rx tablet (Nitrostat) pantoprazole 40 mg tablet,delayed 40 mg PO BID 30 Days #60 tab 01/08/22 01/16/22 Rx release amlodipine 5 mg tablet 2.5 mg PO DAILY 01/16/22 01/16/22 History melatonin 5 mg capsule 5 mg PO HS PRN cap 01/16/22 01/16/22 History Past Med/Surg History Medical History Anxiety Chronic GERD Depression Esophageal reflux Granuloma annulare Hearing loss Hiatal hernia Hyperlipidemia Hypertension Irritable bowel syndrome 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 Father Myocardial infarction Lung cancer Other No family history of bleeding disorder Denies family history of Colon cancer Ovarian cancer Prostate cancer Breast cancer Colorectal cancer Stroke Social History Smoking Status: Former smoker Tobacco Type: Cigarettes Age Started Using Tobacco: 22; Age Quit Using Tobacco: 42; Cigarettes Per Day: 1; Second Hand Exposure: No; Hx Alcohol Use: Yes Alcohol type: beer and wine Alcohol Intake Frequency: 2-3 x/Week Hx Substance Use: No Preferred Language: Persian Communication Ability: Effective Visual Impairment: Limited Hearing Ability: Use of Hearing Aid 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 Beliefs That Will Affect Care: None marital status: Current Living Situation: Family Current Living Situation Comment: Lives with Son and his family current occupational status: retired current occupation: Retired How many Children do You have: 2 Feels Safe at Home: Yes Childhood Exposure to Second-Hand Smoke: Yes (both parents smoked ) caffeine: Yes (coffee 1-2 cups a day ) Dental Care, Regularly: Yes Physical Activity Frequency: Does not Exercise Seatbelt Use: always Sunscreen Use: Yes Assistive Devices: Denture - Upper, Denture - Lower, Glasses and Hearing Aid - Bilateral Review of Systems Review of Systems: Constitutional: reports dizziness/lightheadedness; no fever/chills, weakness, fatigue, myalgias, anorexia, night sweats Eyes: No diplopia, no worsening or blurred vision ENT: normal hearing, no trouble swallowing Respiratory: SOB at rest associated with CP, light conversation Cardiovascular: central substernal/epigastric chest pressure; no tightness or palpitations Abdomen: epigastric pain w/ nausea, vomiting x2; no diarrhea or constipation : Denies dysuria, hematuria, increased urgency/frequency, urinary retention Musculoskeletal: No joint pain, calf pain, swelling Neurologic: No weakness, numbness/tingling, or balance problems Psychiatric: No anxiety or depression Skin: No rash or itch Physical Exam Physical Exam: General: awake, alert, no apparent distress Head: Normocephalic, atraumatic ENT: PERRL, EOMI, no pharyngeal exudate, mucous membranes moist Chest: Clear to auscultation, on room air, no adventitious breath sounds Cardiac: chest wall TTP; Regular rate and rhythm, no murmur, no JVD, normal peripheral pulses, good capillary refill Abdominal: eigastric region TTP; NABS x 4 quadrants, soft, otherwise nontender to palpation, no rebound, guarding or tenderness Extremities: Normal inspection, no peripheral edema or erythema, calfs nontender to palpation Psych: Normal mood and affect Neuro: AAO x 3, strength intact bilaterally and rated 5/5, no motor deficits, speech is clear, no peripheral sensory deficits Skin: no rash or erythema Results & Data Results & Data ([facility]) Vital Signs (Past 12 Hours) Vital Signs Temp Pulse Pulse Resp BP BP Pulse Ox 01/16/22 16:20 61 19 140/65 99 01/16/22 15:05 164/61 H 01/16/22 15:04 65 24 100 01/16/22 15:00 70 23 100 01/16/22 14:50 76 23 100 01/16/22 14:40 67 26 H 100 01/16/22 14:32 100 01/16/22 14:30 67 17 100 01/16/22 14:20 71 32 H 99 01/16/22 14:19 36.5 C 68 22 100 Laboratory Results Abnormal lab results 01/16/22 01/16/22 Range/Units 14:43 14:43 MPV 10.9 H (7.4-10.4) fL [place] # (Auto) 0.78 H (0.11-0.59) K/uL BUN 25 H (6-23) mg/dl Creatinine 1.30 H (0.6-1.2) mg/dl Glucose 111 H (70-99(Fasting)) mg/dl Diagnostic Findings Chest X-Ray 01/16/22 15:03 SINGLE VIEW CHEST CLINICAL HISTORY: Atypical chest pain. FINDINGS: An AP, portable, upright chest radiograph is compared to chest x-ray and chest CT dated 12/05/2021. The cardiomediastinal silhouette is unremarkable. There is mild bibasilar atelectasis. The lungs and pleural spaces are otherwise clear. No pneumothorax is seen. The skeletal structures are osteopenic. The bony thorax is grossly intact. IMPRESSION: No active disease in the chest. ACT 112: Negative or not required by law. Electronically signed by: Dennis Younger M.D. 01/16/2022 4:[address] 01/16/22 15:03 CT head/brain wo con CLINICAL HISTORY: 76 years-old Female with syncope. Acute syncope TECHNIQUE: Multiple axial CT images of the head were obtained without contrast. A dose lowering technique was utilized adhering to the principles of ALARA. CT DOSE: 537.48 mGy.cm COMPARISON: None. FINDINGS: No acute intracranial hemorrhage, midline shift, intracranial mass, hydroce phalus, territorial ischemia or abnormal extra-axial collection. Age-related involutional changes. Mild white matter hypodensities suggestive of chronic microvascular ischemic disease. The calvarium is intact. Prior bilateral lens replacement. The paranasal sinuses, mastoid air cells, and middle ear cavities are clear. IMPRESSION: No acute intracranial abnormality or calvarial fracture. ACT 112: Negative or not required by law. The above report was generated using voice recognition software. It may contain grammatical, syntax or spelling errors. Electronically signed by: Virgil Mckeon M.D. 01/16/2022 3:47 PM ECG Additional Comments: Normal sinus rhythm Right bundle branch block Inferior infarct (cited on or before 16-JAN-2022) T wave abnormality, consider lateral ischemia Abnormal ECG When compared with ECG of 16-JAN-2022 14:29, (unconfirmed) No significant change was found. Supervising Physician Co-Signing Physician Notes Patient seen and examined with [place], reviewed medical record. Agree with her note above. This is a 76-year-old female with a past medical history of CAD, recent stent placement as documented. Patient was complaining of intermittent substernal chest pain approximate 24 hours prior to presentation. She became lightheaded after using a nitroglycerin. 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 She was given a another nitro after complaining of similar chest pain. Patient had a syncopal episode, became very diaphoretic and hypotensive. Patient woke up with a vomit on her self. She also notes that she lost bladder control. At time of evaluation, patient was back to her baseline and was awake alert. Blood pressure is in the 130 systolic. Exam as noted above, heart is regular with no murmurs, no chest wall tenderness. Remainder exam as above. Plan to monitor overnight. Continue to trend cardiac enzymes. Reviewed 2D echo from November 2021, no need to repeat at this time. Will have cardiology evaluate the patient and await their recommendations. PG Care Time/CCT Total # of Minutes Spent Total Time Spent with Patient: Total time spent is greater than 50% in coordination of care (as documented) at patient's floor/unit and/or counseling patient: Coding Level of Care Code 72050 Initial Inpt Care Lvl 3 Diagnoses Coronary artery disease I25.10 Hypertension I10 Hyperlipidemia E78.5 Chronic GERD K21.9 Hiatal hernia K44.9 Irritable bowel syndrome K58.9 Depression F32.9 Chest pain R07.9 Chest pain type: unspecified Syncope R55 Syncope type: unspecified SUBHASH (acute kidney injury) N17.9 (1) Syncope Syncope type: unspecified Qualified Code(s): R55 - Syncope and collapse (2) Chest pain Chest pain type: unspecified Qualified Code(s): R07.9 - Chest pain, unspeci fied
--- NOTE | 2022-01-16 17:10 | Emergency Department Note ---
History of Present Illness General Chief complaint: Syncope Stated complaint: SYNCOPE Time Seen by Provider: 01/16/22 14:57 History of Present Illness Provider complaint: Chest pain syncope Onset (ago): day(s) 2 Location: chest Radiation: non-radiation Severity: moderate Pain Consistency: + intermittent Quality: + other (Heaviness/pressure) Relieved By: + none Exacerbated By: + none Associated symptoms: + chest pain, + malaise and + syncope; no cough, no headaches, no nausea/vomiting or no shortness of breath 76-year-old female presents emergency department for chest pain and syncope. Patient reports that she has been having chest pain on and off since yesterday. The patient reports she went to her manager social office today Dr. Narayan and was reporting chest pain in the office. While in the office the staff gave her a sublingual nitroglycerin the patient states she felt very lightheaded and then had a syncopal episode. The patient was subsequently referred to the emergency department. Currently the patient is still reporting nausea as well as subste rnal chest pressure. No radiation. No difficulty breathing. No recent travel. No hemoptysis. No exogenous hormone usage. No hematuria melena or hematochezia. Home Medications Medication Instructions Recorded Confirmed Type multivitamin with minerals 1 tab PO QAM tab 04/27/19 01/16/22 History (Multiple Vitamin-Minerals) biotin 1,000 mcg chewable tablet 1,000 mcg PO QAM 03/05/21 01/16/22 History cholecalciferol (vitamin D3) 25 25 mcg PO QAM 03/05/21 01/16/22 History mcg (1,000 unit) chewable tablet (Vitamin D3) fluoxetine 40 mg capsule 40 mg PO QAM #90 cap 06/14/21 01/16/22 Rx fluticasone propionate 50 1 spray INTRANASAL BID #15.8 ml 10/23/21 01/16/22 Rx mcg/actuation nasal spray,suspension (Flonase Allergy Relief) telmisartan 40 mg tablet 40 mg PO QAM 12/05/21 01/16/22 History aspirin 81 mg tablet,delayed 81 mg PO DAILY #30 tab 12/19/21 01/16/22 Rx release (Adult Low Dose Aspirin) atorvastatin 80 mg tablet 80 mg PO HS #90 tab 05/11/22 06/08/22 Rx clopidogrel 75 mg tablet 75 mg PO DAILY #30 tab 12/19/21 01/16/22 Rx nitroglycerin 0.4 mg sublingual 0.4 mg SUBLINGUAL Q5M PRN #25 tab 12/27/21 01/16/22 Rx tablet (Nitrostat) pantoprazole 40 mg tablet,delayed 40 mg PO BID 30 Days #60 tab 01/08/22 01/16/22 Rx release amlodipine 5 mg tablet 2.5 mg PO DAILY 01/16/22 01/16/22 History melatonin 5 mg capsule 5 mg PO HS PRN cap 01/16/22 01/16/22 History Allergies Allergy/AdvReac Type Severity Reaction Status Date / Time minocycline Allergy Unknown UNKNOWN Verified 01/16/22 15:26 tetracycline Allergy Unknown Unknown Verified 01/16/22 15:26 Past Med/Surg History Medical History Anxiety Chronic GERD Depression Esophageal reflux Granuloma annulare Hearing loss Hiatal hernia Hyperlipidemia Hypertension Irritable bowel syndrome 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 Father Myocardial infarction Lung cancer Other No family history of bleeding disorder Denies family history of Colon cancer Ovarian cancer Prostate cancer Breast cancer Colorectal cancer Stroke Social History Smoking Status: Former smoker Tobacco Type: Cigarettes Age Started Using Tobacco: 22; Age Quit Using Tobacco: 42; Cigarettes Per Day: 1; Second Hand Exposure: No; Hx Alcohol Use: Yes Alcohol type: beer and wine Alcohol Intake Frequency: 2-3 x/Week Hx Substance Use: No Preferred Language: Bhutanese Communication Ability: Effective Visual Impairment: Limited Hearing Ability: Use of Hearing Aid 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 Required: No Beliefs That Will Affect Care: None marital status: Current Living Situation: Family Current Living Situation Comment: Lives with Son and his family current occupational status: retired current occupation: Retired How many Children do You have: 2 Feels Safe at Home: Yes Childhood Exposure to Second-Hand Smoke: Yes (both parents smoked ) caffeine: Yes (coffee 1-2 cups a day ) Dental Care, Regularly: Yes Physical Activity Frequency: Does not Exercise Seatbelt Use: always Sunscreen Use: Yes Assistive Devices: Denture - Upper, Denture - Lower, Glasses and Hearing Aid - Bilateral Review of Systems A total of 10 systems reviewed and were otherwise negative Physical Exam Vital Signs Vital Signs - 24 hr 01/16/22 14:19 01/16/22 14:20 01/16/22 14:30 Temperature 36.5 C Temperature Source Oral Pulse Rate 68 71 67 Pulse Rate [Apical] Pulse Rate from SpO2 Sensor 71 67 Pulse Rhythm Regular Pulse Strength Normal Respiratory Rate 22 32 H 17 Respiratory Effort / Characteristics Grunting Respiratory Depth Blood Pressure Blood Pressure [Right Arm] Blood Pressure Mean Blood Pressure Mean [Right Arm] Pulse Oximetry 100 99 100 Oxygen Delivery Method Room Air Sepsis Recent Fever Within 48 Hours No Sepsis New/Unexplained Change in Mental Status No Sepsis Action Taken by Nursing No Action Required 01/16/22 14:32 01/16/22 14:40 01/16/22 14:50 Temperature Temperature Source Pulse Rate 67 76 Pulse Rate [Apical] Pulse Rate from SpO2 Sensor 68 75 Pulse Rhythm Pulse Strength Respiratory Rate 26 H 23 Respiratory Effort / Characteristics Respiratory Depth Blood Pressure Blood Pressure [Right Arm] Blood Pressure Mean Blood Pressure Mean [Right Arm] Pulse Oximetry 100 100 100 Oxygen Delivery Method Room Air Sepsis Recent Fever Within 48 Hours Sepsis New/Unexplained Change in Mental Status Sepsis Action Taken by Nursing 01/16/22 15:00 01/16/22 15:04 01/16/22 15:05 Temperature Temperature Source Pulse Rate 70 65 Pulse Rate [Apical] Pulse Rate from SpO2 Sensor 69 66 Pulse Rhythm Pulse Strength Respiratory Rate 23 24 Respiratory Effort / Characteristics Respiratory Depth Blood Pressure 164/61 H Blood Pressure [Right Arm] Blood Pressure Mean 95 Blood Pressure Mean [Right Arm] Pulse Oximetry 100 100 Oxygen Delivery Method Sepsis Recent Fever Within 48 Hours Sepsis New/Unexplained Change in Mental Status Sepsis Action Taken by Nursing 01/16/22 16:20 Temperature Temperature Source Pulse Rate Pulse Rate [Apical] 61 Pulse Rate from SpO2 Sensor Pulse Rhythm Pulse Strength Respiratory Rate 19 Respiratory Effort / Characteristics Non-Labored Respiratory Depth Normal Blood Pressure Blood Pressure [Right Arm] 140/65 Blood Pressure Mean Blood Pressure Mean [Right Arm] 90 Pulse Oximetry 99 Oxygen Delivery Method Room Air Sepsis Recent Fever Within 48 Hours Sepsis New/Unexplained Change in Mental Status Sepsis Action Taken by Nursing Physical Exam GENERAL: She is oriented to person, place, and time. She appears well-developed and well-nourished. She does not appear distressed. HENT: Exam performed. -Head: Normocephalic and atraumatic. -Right Ear: External ear normal. No mastoid tenderness. -Left Ear: External ear normal. No mastoid tenderness. -Mouth/Throat: The oropharynx is clear and moist. No trismus in the jaw. No dental abscesses or uvula swelling. No oropharyngeal exudate or tonsillar abscesses. EYES: Conjunctivae and EOM are normal. Pupils are equal, round, and reactive to light. Right eye exhibits no discharge. Left eye exhibits no discharge. No scleral icterus. NECK: Normal range of motion. Neck supple. No JVD present. No spinous process tenderness present. No carotid bruit present. No rigidity. No tracheal deviation and normal range of motion present. No Brudzinski's sign and no Kernig's sign noted. CV: Normal rate, regular rhythm, normal heart sounds and intact distal pulses. There is no peripheral edema. Palpable radial pulses bue. PULM/CHEST: Effort normal and breath sounds normal. No respiratory distress. No stridor. She has no wheezes. She has no rales. -Chest Wall: She exhibits no tenderness. ABD: The abdomen is soft. Bowel sounds are normal. She has no distension. No mass is present. There is no tenderness. There is no rebound, no guarding, no Hernandez's sign and no tenderness at McBurney's point. Rovsig negative MUSC/SKEL: Normal range of motion. There is no peripheral edema, tenderness or deformity. LYMPH: No cervical adenopathy. NEURO: She is alert and oriented to person, place, and time. She has normal strength. No cranial nerve deficit or sensory deficit. Coordination and gait normal. GCS eye subscore is 4. GCS verbal subscore is 5. GCS motor subscore is 6. Cerebellar tests wnl. SKIN: Skin is warm and dry. She is not diaphoretic. PSYCH: She has a normal mood and affect. Behavior is normal. Judgment and thought content normal. Course Course 1457: The patient was evaluated in room B4. A complete history and physical exam was performed Cardiac monitoring: An order was placed for continuous cardiac monitoring. The monitor shows a rate of 60 with sinus rhythm 1509: Vital signs stable. Patient was given sublingual nitroglycerin, oral Ativan, and Zofran and the patient reports her chest pain has subsided. 1706: Vital signs stable. Labs and imaging within normal limits. Patient reports no chest pain status post the sublingual nitroglycerin given in the emergency department. [facility]. Discussed the case with Dulce working with Dr. Artis who agreed to evaluate the patient for admission. Administered Medications Discontinued Medications Sodium Chloride (Nss 1000ml) 1,000 mls @ 999 mls/hr IV .Q1H1M ONE Stop: 01/16/22 16:09 Last Admin: 01/16/22 15:45 Dose: 999 mls/hr Documented by: [id number] Lorazepam (Lorazepam 0.5 Mg Tab) Confirm Administered Dose 0.5 mg .ROUTE .STK- MED ONE Stop: 01/16/22 15:03 Last Admin: 01/16/22 15:04 Dose: 0.5 mg Documented by: [id number] Lorazepam (Lorazepam 0.5 Mg Tab) 0.5 mg PO NOW STA Stop: 01/16/22 15:03 Last Admin: 01/16/22 15:05 Dose: Not Given Documented by: [id number] Nitroglycerin (Nitroglycerin Sl 0.4 Mg/Tab Tab) Confirm Administered Dose 0.4 mg .ROUTE .STK-MED ONE Stop: 01/16/22 15:02 Last Admin: 01/16/22 15:05 Dose: 0.4 mg Documented by: [id number] Ondansetron HCl (Ondansetron Inj 2 Mg/Ml 2 Ml Vial) Confirm Administered Dose 4 mg .ROUTE .STK-MED ONE Stop: 01/16/22 15:02 Last Admin: 01/16/22 15:05 Dose: 4 mg Documented by: [id number] Medical Decision Making Laboratory Data Result diagrams: 01/16/22 14:43 01/16/22 14:43 Lab Results 01/16/22 01/16/22 01/16/22 Range/Units 14:43 14:43 14:43 WBC 6.31 (4.8-10.8) K/uL RBC 4.34 (4.2-5.4) M/uL Hgb 13.3 (12.0-16.0) g/dL Hct 39.0 (37-47) % MCV 89.9 (80-100) fL MCH 30.6 (25-34) pg MCHC 34.1 (32-36) g/dL RDW Std Deviation 41.5 (36.4-46.3) fL RDW Coeff of David 12.4 (11.5-14.5) % Plt Count 291 (130-400) K/uL MPV 10.9 H (7.4-10.4) fL Immature Gran % (Auto) 0.2 % Neut % (Auto) 57.1 % Lymph % (Auto) 26.9 % Grainger % (Auto) 12.4 % Eos % (Auto) 2.4 % Baso % (Auto) 1.0 % Neut # (Auto) 3.61 (1.4-6.5) K/uL Lymph # (Auto) 1.70 (1.2-3.4) K/uL Grainger # (Auto) 0.78 H (0.11-0.59) K/uL Eos # (Auto) 0.15 (0-0.5) K/uL Baso # (Auto) 0.06 (0-0.2) K/uL Immature Gran # (Auto) 0.01 (0.00-0.02) K/uL PT 10.4 (9.0-12.0) Seconds INR 1.0 (0.9-1.1) APTT 21.1 (21.0-31.0) Seconds PTT Ratio 0.8 Sodium 138 (136-145) mmol/L Potassium 3.8 (3.5-5.1) mmol/L Chloride 106 (98-107) mmol/L Carbon Dioxide 21 (21-32) mmol/L Anion Gap 11 (3-11) BUN 25 H (6-23) mg/dl Creatinine 1.30 H (0.6-1.2) mg/dl Est Cr Clr Drug Dosing 66.2 ml/min Est GFR ( Amer) 46.8 ml/min Est GFR (Non-Af Amer) 40.4 ml/min BUN/Creatinine Ratio 19.2 (10-20) Glucose 111 H (70-99(Fasting)) mg/dl Calcium 9.2 (8.5-10.1) mg/dl Troponin I High Sens 3.1 (0-14) pg/ml Lipase 31 (11-82) U/L Imaging Data Radiologist's Impression: Chest X-Ray 01/16/22 15:03 SINGLE VIEW CHEST CLINICAL HISTORY: Atypical chest pain. FINDINGS: An AP, portable, upright chest radiograph is compared to chest x-ray and chest CT dated 12/05/2021. The cardiomediastinal silhouette is unremarkable. There is mild bibasilar atelectasis. The lungs and pleural spaces are otherwise clear. No pneumothorax is seen. The skeletal structures are osteopenic. The bony thorax is grossly intact. IMPRESSION: No active disease in the chest. ACT 112: Negative or not required by law. Electronically signed by: Dennis Younger M.D. 01/16/2022 4:[address] 01/16/22 15:03 CT head/brain wo con CLINICAL HISTORY: 76 years-old Female with syncope. Acute syncope TECHNIQUE: Multiple axial CT images of the head were obtained without contrast. A dose lowering technique was utilized adhering to the principles of ALARA. CT DOSE: 537.48 mGy.cm COMPARISON: None. FINDINGS: No acute intracranial hemorrhage, midline shift, intracranial mass, hydrocephalus, territorial ischemia or abnormal extra-axial collection. Age- related involutional changes. Mild white matter hypodensities suggestive of chronic microvascular ischemic disease. The calvarium is intact. Prior bilateral lens replacement. The paranasal sinuses, mastoid air cells, and middle ear cavities are clear. IMPRESSION: No acute intracranial abnormality or calvarial fracture. ACT 112: Negative or not required by law. The above report was generated using voice recognition software. It may contain grammatical, syntax or spelling errors. Electronically signed by: Virgil Mckeon M.D. 01/16/2022 3:47 PM ECG Data Additional Comments: EKG #1 at 1429: Sinus rhythm with a rate of 67. WI QRS and QTC intervals within normal limits. No ST elevation or ST depression. Right bundle branch block present. EKG #2 at 1452: Sinus rhythm with a rate of 63. WI 148 QRS [address] elevation or ST depression. Right bundle branch block present. [facility] Narrative 1457: The patient was evaluated in room B4. A complete history and physical exam was performed Cardiac monitoring: An order was placed for continuous cardiac monitoring. The monitor shows a rate of 60 with sinus rhythm 1509: Vital signs stable. Patient was given sublingual nitroglycerin, oral Ativan, and Zofran and the patient reports her chest pain has subsided. 1706: Vital signs stable. Labs and imaging within normal limits. Patient reports no chest pain status post the sublingual nitroglycerin given in the emergency department. Patient will be admitted to the [facility] hospitalist team for syncope and chest pain work-up. Discussed the case with Dulce vieira with Dr. Artis who agreed to evaluate the patient for admission. Impression & Plan Chest pain, Syncope Discharge Plan Visit Data Chief Complaint: Syncope Stated Complaint: SYNCOPE Discharge Problem: Chest pain, Syncope Patient Disposition: Being Evaluated by Hospitalist Forms Stand Alone Forms: My [facility] Prescriptions Prescriptions: No Action fluoxetine 40 mg capsule 40 mg PO QAM Qty: 90 RF: 3 nitroglycerin [Nitrostat] 0.4 mg tablet, sublingual 0.4 mg sublingual Q5M PRN (Reason: chest pain) Qty: 25 RF: 2 pantoprazole 40 mg tablet,delayed release (DR/EC) 40 mg PO BID 30 Days Qty: 60 RF: 1 melatonin 5 mg capsule 5 mg PO HS PRN (Reason: Sleep) RF: 0 fluticasone propionate [Flonase Allergy Relief] 50 mcg/actuation spray,suspension 1 spray intranasal BID Qty: 15.8 RF: 8 multivitamin with minerals [Multiple Vitamin-Minerals] tablet 1 tab PO QAM RF: 0 cholecalciferol (vitamin D3) [Vitamin D3] 25 mcg (1,000 unit) Tablet,Chewable 25 mcg PO QAM RF: 0 biotin 1,000 mcg Tablet,Chewable 1,000 mcg PO QAM RF: 0 telmisartan 40 mg tablet 40 mg PO QAM RF: 0 clopidogrel 75 mg tablet 75 mg PO DAILY Qty: 30 RF: 6 aspirin [Adult Low Dose Aspirin] 81 mg tablet,delayed release (DR/EC) 81 mg PO DAILY Qty: 30 RF: 11 atorvastatin 80 mg tablet 80 mg PO HS Qty: 90 RF: 3 amlodipine 5 mg tablet 2.5 mg PO DAILY RF: 0 Referrals Referrals: Isabela Colvin MD [Primary Care Provider] -
[2022-01-16] MEDS ORDERED: FAMOTIDINE 20 MG in SYRINGE 3 ML IV ONE (19:29)
[2022-01-16] MEDS ORDERED: NITROGLYCERIN SL 0.4 MG/TAB TAB SL PRN (20:05)
[2022-01-16] MEDS ORDERED: ACETAMINOPHEN 325 MG TAB PO PRN (20:05)
[2022-01-16] MEDS ORDERED: ONDANSETRON INJ 2 MG/ML 2 ML VIAL IV PRN (20:05)
[2022-01-16] MEDS ORDERED: POLYETHYLENE (MIRALAX) 17 GM PACK PO PRN (20:05)
[2022-01-16] MEDS ORDERED: MELATONIN 3 MG TAB PO PRN (20:14)
[2022-01-16] MEDS: LACTATED RINGER'S 1,000 ML IV SCH (21:46)
[2022-01-16] MEDS: FLUTICASONE PROPIONATE NA SPR 16 GM BTL SCH (21:47)
[2022-01-16] MEDS: PANTOprazole 40 MG TAB PO SCH (21:53)
[2022-01-16] MEDS: ATORVASTATIN 40 MG TAB PO SCH (21:53)
[2022-01-17] MEDS: LACTATED RINGER'S 1,000 ML IV SCH (05:46)
[2022-01-17 06:31] LABS: Basophils # (auto) 0.07 K/uL (0-0.2); Eosinophils # (auto) 0.11 K/uL (0-0.5); Eosinophils % (auto) 1.6 %; Hematocrit (blood only) 37.6 % (37-47); Hemoglobin 12.2 g/dL (12.0-16.0); Immature Granulocytes # (auto) 0.01 K/uL (0.00-0.02); Immature Granulocytes % (auto) 0.1 %; Lymphocytes # (auto) 1.65 K/uL (1.2-3.4); Mean Corpuscular Hemoglobin 29.6 pg (25-34); Mean Corpuscular Hgb Conc 32.4 g/dL (32-36); Mean Corpuscular Volume 91.3 fL (80-100); Monocytes % (auto) 10.2 %; Neutrophils # (auto) 4.34 K/uL (1.4-6.5); Neutrophils % (auto) 63.1 %; Platelet Count 252 K/uL (130-400); RDW Coefficient of Variation 12.8 % (11.5-14.5); RDW Standard Deviation 43.1 fL (36.4-46.3); Red Blood Count 4.12 M/uL (4.2-5.4); White Blood Count 6.88 K/uL (4.8-10.8)
[2022-01-17 07:04] LABS: Troponin I High Sensitivity 4.7 pg/ml (0-14)
[2022-01-17 07:07] LABS: Calcium 8.5 mg/dl (8.5-10.1); Creatinine Clr Calc Pharmacy 46.7 ml/min; Est GFR (African American) 59.2 ml/min; Est GFR (Non-African American) 51.1 ml/min
[2022-01-17] MEDS: amLODIPine BESYLATE 5 MG TAB PO SCH (07:43)
[2022-01-17] MEDS: CLOPIDOGREL BISULFATE 75 MG TAB PO SCH (07:44)
[2022-01-17] MEDS: FLUoxetine HCL 20 MG CAP PO SCH (07:44)
[2022-01-17] MEDS: PANTOprazole 40 MG TAB PO SCH ×2 (07:45→20:43)
[2022-01-17] MEDS: CHOLECALCIFEROL 1,000 UNITS 25 MCG TAB PO SCH (07:45)
[2022-01-17] MEDS: ASPIRIN 81 MG ECTAB PO SCH (07:45)
[2022-01-17] MEDS: FLUTICASONE PROPIONATE NA SPR 16 GM BTL SCH ×2 (08:02→20:43)
[2022-01-17] MEDS ORDERED: NON-FORMULARY MEDICATION (Biotin 1,000 mcg Tablet,Chewable) PO SCH (09:00)
--- NOTE | 2022-01-17 10:37 | Hospitalist Progress Note ---
Date of Service January 17, 2022 Assessment & Plan (1) Chest pain: Plan: Resolved this morning. - Serial troponins negative and given recent cardiac cath without significant residual disease, duration of symptoms and not significant exertional component I have a low suspicion of coronary artery disease (angina) as cause. - Positional component suggestive of pericarditis (Grecia's syndrome) vs. GERD. TTE ordered to assess for pericardial effusion. Cardiology consult pending to assess for pericarditis. - Will consult GI to consider repeat EGD to assess for GERD (pending normal TTE), if no EGD planned will consider adding carafate if echocardiogram normal. (2) Syncope: Plan: - Suspect secondary to nitroglycerin. In setting of mild dehydration represented by mild BUN/Cr elevation on admission. Resolved with IV fluids. Will continue on her routine BP meds for now and take orthostatics q shift. (3) Coronary artery disease: Plan: - s/p RCA PCI last month. - Continue DAPT w/ ASA+Plavix, ARB, statin, nitroglycerin prn. (4) Hypertension: Plan: - Continue amlodipine and telmisartan - Could consider d/c amlodipine if angina ruled out as may be contributing towards reflux. (5) Hyperlipidemia: Plan: - Continue atorvastatin 80 mg daily. (6) Chronic GERD: Plan: - Continue Protonix 40 mg twice daily. - Follows with Surinder MORALES as outpatient - will consult while she is here for consideration of repeat EGD. (7) Hiatal hernia: Plan: Noted to be small on EGD in 2020 (8) Depression: Plan: - Continue fluoxetine. (9) Irritable bowel syndrome: Plan: Noted history of this Plan: - OBS med/tele. - SCDS for DVT ppx. - Full Code. Admission and Anticipated Discharge Date Admission Date: January 16, 2022 Subjective Chest pain resolved this morning at rest while in bed. No current shortness of breath, nausea or diaphoresis. Revisited history with the patient. She denies exertional component. Pain is higher up than her more epigastric pain in November when she did have significant troponin rise. No radiation. Non-exertional although she does reports increased shortness of breath with chest heaviness when she is talking. Pain lasts for about an hour each time and comes and goes. Complete resolution for hours in between episodes. Worse when she came to the ER yesterday but started 2 days ago. Telemetry: NSR 50-70s Review of Systems Review of Systems: All systems reviewed & are unremarkable except as noted in Subjective Physical Exam Constitutional: WD/WN, vitals as above Neck: trachea midline, no thyromegaly Respiratory: normal respiratory effort, lungs clear to auscultation Cardiovascular: RRR, no murmur, no edema Gastrointestinal (Abdomen): Percussion/Palpation: abdomen soft; abdomen nontender Musculoskeletal: no cyanosis or clubbing, extremities motor strength 5/5 Skin: no rashes, warm and dry Neurologic: moves all extremities and awake; not confused Psychiatric: A+Ox3, euthymic affect Results & Data Results & Data ([facility]) Vital Signs (Past 12 Hours) Vital Signs Temp Pulse Pulse Resp BP Pulse Ox 01/17/22 08:00 67 01/17/22 07:46 36.6 C 65 16 133/72 95 01/17/22 04:13 37.0 C 68 18 133/55 L 96 01/17/22 02:22 71 01/17/22 00:31 36.9 C 72 16 137/59 L 96 PG Care Time/CCT Total # of Minutes Spent Total Time Spent with Patient: Total time spent is greater than 50% in coordination of care (as documented) at patient's floor/unit and/or counseling patient: Coding Level of Care Code 67941 Subseq Hosp Care Lvl 3 Diagnoses Chest pain R07.9 Chest pain type: unspecified Syncope R55 Syncope type: unspecified Coronary artery disease I25.10 Hypertension I10 Hyperlipidemia E78.5 Chronic GERD K21.9 Hiatal hernia K44.9 Depression F32.9 Irritable bowel syndrome K58.9 (1) Chest pain Chest pain type: unspecified Qualified Code(s): R07.9 - Chest pain, unspecified (2) Syncope Syncope type: unspecified Qualified Code(s): R55 - Syncope and collapse
[2022-01-17] MEDS: TELMISARTAN 40 MG TAB PO SCH (12:12)
--- NOTE | 2022-01-17 13:32 | Cardiology Consultation ---
Date of Consultation January 17, 2022 Assessment & Plan (1) Chest pain: (2) Coronary artery disease: (3) Stented coronary artery: (4) Hyperlipidemia: (5) Hypertension: ASSESSMENT/PLAN: 1. Chest: Chest pain atypical. High sensitivity troponin was completely unremarkable despite prolonged episodes of chest discomfort and active chest discomfort on presentation. Pain not consistent with ischemic heart disease. No ischemic evaluation necessary at this time. No will new wall motion abn ormalities on echo and do not suspect compromise of her RCA stent; if thrombus occurred, would present as STEMI with ECG changes and troponin elevation. Chest discomfort not consistent with pericarditis. Noncardiac chest discomfort evaluation per primary hospitalist service. 2. CAD s/p RCA PCI: Chest discomfort on presentation different than prior angina. Negative high sensitivity troponin x 3. Continue aspirin 81 mg daily indefinitely. Continue Plavix 75 mg daily for at least 6 months. Has demonstrated bradycardia in the past and therefore beta-cynthia has not been instituted. Continue high-intensity statin therapy. 3. Hypertension: Blood pressure mildly elevated. Consider titrating amlodipine. Low-sodium diet. 4. Dyslipidemia: Continue high-intensity statin therapy. 5. Disposition: Patient care discussed with primary hospitalist, Dr. Blackman. Thank you for allowing me to participate in the care of your patient. Please call for any other questions or concerns. Sincerely, Andre Narayan M.D. History of Present Illness Reason for Consultation: Chest pain with syncope Requesting Physician: Dulce De Santiago Attending Physician: Luis Blackman MD History of Present Illness Ms. Cobb is a very pleasant 76-year-old female with a history significant for coronary artery disease s/p RCA PCI, hypertension, dyslipidemia, IBS, GERD, esophageal dysphagia, and hiatal hernia. She has been diagnosed with Tourette's and has occasional tics. She was admitted to [facility] on 12/05/2021 with epigastric discomfort. Her epigastric discomfort was felt to be GI in etiology as it was exacerbated by greasy foods and alcohol and she also had tenderness in the epigastric area. The epigastric discomfort was associated with nausea and belching. She also admitted to exertional chest heaviness accompanied by dyspnea, which she has noted with climbing stairs and sometimes other activities. Initial high sensitivity troponin was 195.5, which increased to 270.7 at peak before trending downward. She underwent myocardial perfusion study and was discharged home on b.i.d. Protonix and metoprolol. She was seen in follow-up by Dr. Narayan as an outpatient and was arranged for a cardiac catheterization, which demonstrated severe mid RCA CAD which was stented with a single drug-eluting stent. She has had the following studies/ procedures: 1. Stress echo 03/19/2021: Negative stress echo and ECG at > 100% MPHR. 3 minutes 23 seconds Jameson protocol. 2. Echo 12/06/2021 [facility]: Normal LV size, wall motion, systolic function. EF 60-65%. Mild LVH. No significant valvular abnormalities. 3. Nuclear stress 12/07/2021: Findings suggest inferior and inferolateral ischemia. EF 80%. 4. Cardiac cath 12/19/21 [facility]: Proximal LAD 40-50%. Mid LAD 40-50% at bifurcation of small to medium D1. It circumflex 20%. Mid RCA 95%. Mid RCA underwent PCI with 2.5 x 15 mm toni THIAGO, post dilated 2.75 NC. She was admitted for observation on 01/16/2022 after being sent to the emergency department from the Cardiology office after evaluation by Ms. Shrestha. She had been experiencing chest discomfort on 01/15/2022 in her lower chest in the substernal area. She described the discomfort as a pressure. It occurred while shopping there was no radiation of the pain and she denies any significant shortness of breath. She has chronic dyspnea with exertion if she talks a lot while walking, but describes this as stable. She took a nitroglycerin at home with mild potential benefit but the chest discomfort persisted. She states today that the chest pain was constant for approximately 1 day. In the cardiology office due to chest discomfort, she was given nitroglycerin and had a syncopal event. She first complained of lightheadedness before losing consciousness. She then began to vomit and when a blood pressure was able to be obtained, systolic pressure was 90 mmHg. After a few minutes, she regained consciousness but continued to have vomiting/dry heaving. Abdominal discomfort was also reported. While here in the emergency department, she states she received further nitroglycerin but did not have syncope. The chest pain persisted but eventually subsided spontaneously. She feels back to baseline. She has been able to tolerate her diet. She states that her presenting chest discomfort that persisted for approximately 1 day, was completely different than what she described as angina in the past which was a chest pressure in the upper portion of her chest with exertion only. She has not had any further angina since undergoing PCI. The chest discomfort is also different than what was described as epigastric pain in the past, related to food and was reproducible on exam. She has participated in cardiac rehab twice so far and has tolerated it well. Blood pressure at home has been elevated specifically in the evenings. Amlodipine recently adjusted by her PCP to b.i.d. dosing, 2.5 mg each. She denies palpitations, edema, melena, hematochezia, hematuria, or other bleeding. At the time of today's visit this afternoon, she was back to baseline and asymptomatic. Review of systems: As above. Review of systems otherwise negative/unremarkable. Family history: Father had lung cancer and in the setting of pneumonia, from [place] at the age of 70. Mother had melanoma. Social history:She quit smoking in her early 40s after smoking approximately 1 pack per week. Occasional alcohol. Lives with her son and his family. x2. Two sons. Grandchildren and great grandchild. She was unaccompanied today. Allergies Allergy/AdvReac Type Severity Reaction Status Date / Time minocycline Allergy Unknown UNKNOWN Verified 01/16/22 15:26 tetracycline Allergy Unknown Unknown Verified 01/16/22 15:26 Home Medications Medication Instructions Recorded Confirmed Type multivitamin with minerals 1 tab PO QAM tab 04/27/19 01/16/22 History (Multiple Vitamin-Minerals) biotin 1,000 mcg chewable tablet 1,000 mcg PO QAM 03/05/21 01/16/22 History cholecalciferol (vitamin D3) 25 25 mcg PO QAM 03/05/21 01/16/22 History mcg (1,000 unit) chewable tablet (Vitamin D3) fluoxetine 40 mg capsule 40 mg PO QAM #90 cap 06/14/21 01/16/22 Rx fluticasone propionate 50 1 spray INTRANASAL BID #15.8 ml 10/23/21 01/16/22 Rx mcg/actuation nasal spray,suspension (Flonase Allergy Relief) telmisartan 40 mg tablet 40 mg PO QAM 12/05/21 01/16/22 History aspirin 81 mg tablet,delayed 81 mg PO DAILY #30 tab 12/19/21 01/16/22 Rx release (Adult Low Dose Aspirin) atorvastatin 80 mg tablet 80 mg PO HS #90 tab 12/19/21 01/16/22 Rx clopidogrel 75 mg tablet 75 mg PO DAILY #30 tab 12/19/21 01/16/22 Rx nitroglycerin 0.4 mg sublingual 0.4 mg SUBLINGUAL Q5M PRN #25 tab 12/27/21 01/16/22 Rx tablet (Nitrostat) pantoprazole 40 mg tablet,delayed 40 mg PO BID 30 Days #60 tab 01/08/22 01/16/22 Rx release amlodipine 5 mg tablet 2.5 mg PO DAILY 01/16/22 01/16/22 History melatonin 5 mg capsule 5 mg PO HS PRN cap 01/16/22 01/16/22 History Patient History Medical History (Updated 01/17/22 @ 18:15 by Vinicius Narayan MD) Anxiety Chronic GERD Coronary artery disease Depression Esophageal reflux Granuloma annulare Hearing loss Hiatal hernia Hyperlipidemia Hypertension Irritable bowel syndrome 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 Father Myocardial infarction Lung cancer Other No family history of bleeding disorder Denies family history of Colon cancer Ovarian cancer Prostate cancer Breast cancer Colorectal cancer Stroke Social History Smoking Status: Never smoker Tobacco Type: Cigarettes Age Started Using Tobacco: 22; Age Quit Using Tobacco: 42; Cigarettes Per Day: 1; Second Hand Exposure: No; Hx Alcohol Use: Yes Alcohol type: wine Alcohol Intake Frequency: 2-3 x/Week Hx Substance Use: No Preferred Language: Wallisian Communication Ability: Effective Visual Impairment: Limited Hearing Ability: Use of Hearing Aid General Duty Nurse Required: No Beliefs That Will Affect Care: None marital status: Current Living Situation: Family Current Living Situation Comment: Lives with Son and his family current occupational status: retired current occupation: Retired How many Children do You have: 2 Other Information That Helps Us Care for You: No Feels Safe at Home: Yes Safety Concerns: Feels Safe At This Time Childhood Exposure to Second-Hand Smoke: Yes (both parents smoked ) caffeine: Yes (coffee 1-2 cups a day ) Dental Care, Regularly: Yes Physical Activity Frequency: Does not Exercise Seatbelt Use: always Sunscreen Use: Yes Assistive Devices: Denture - Upper, Denture - Lower and Hearing Aid - Bilateral Physical Exam Physical Exam: Gen.: No acute distress. Alert and oriented. HEENT: Anicteric sclera. Neck: No JVD. Cardiac: No ventricular heave. Regular. Normal S1-S2. No murmurs, rubs, or gallops. Pulmonary: Clear to auscultation bilaterally without wheezes, rales, or rhonchi. Abdomen: Soft, nondistended, with normoactive bowel sounds. No bruits noted. Nontender. Extremities: 2+ radial pulses bilaterally. 2+ posterior tibialis pulses bilaterally. No edema or cyanosis. Psychiatric: Affect appears appropriate. Chest: Nontender to palpation. Results & Data ([facility]) Vital Signs (Past 12 Hours) Vital Signs Temp Pulse Pulse Resp BP Pulse Ox 01/17/22 11:11 36.6 C 63 16 150/66 H 96 01/17/22 08:00 67 01/17/22 07:46 36.6 C 65 16 133/72 95 01/17/22 04:13 37.0 C 68 18 133/55 L 96 01/17/22 02:22 71 Laboratory Results Laboratory Results - last 24 hr 01/16/22 01/16/22 01/16/22 14:43 14:43 14:43 WBC 6.31 RBC 4.34 Hgb 13.3 Hct 39.0 MCV 89.9 MCH 30.6 MCHC 34.1 RDW Std Deviation 41.5 RDW Coeff of David 12.4 Plt Count 291 MPV 10.9 H Immature Gran % (Auto) 0.2 Neut % (Auto) 57.1 Lymph % (Auto) 26.9 Boyle % (Auto) 12.4 Eos % (Auto) 2.4 Baso % (Auto) 1.0 Neut # (Auto) 3.61 Lymph # (Auto) 1.70 Boyle # (Auto) 0.78 H Eos # (Auto) 0.15 Baso # (Auto) 0.06 Immature Gran # (Auto) 0.01 ESR PT 10.4 INR 1.0 APTT 21.1 PTT Ratio 0.8 Sodium 138 Potassium 3.8 Chloride 106 Carbon Dioxide 21 Anion Gap 11 BUN 25 H Creatinine 1.30 H Est Cr Clr Drug Dosing 66.2 Est GFR ( Amer) 46.8 Est GFR (Non-Af Amer) 40.4 BUN/Creatinine Ratio 19.2 Glucose 111 H Calcium 9.2 Troponin I High Sens 3.1 C-Reactive Protein Lipase 31 TSH Hepatitis C Ab (EIA) Hep C Ab Signal/Cutoff SARS-CoV-2, RNA, NAAT 01/16/22 01/16/22 01/17/22 16:27 17:36 05:52 WBC RBC Hgb Hct MCV MCH MCHC RDW Std Deviation RDW Coeff of David Plt Count MPV Immature Gran % (Auto) Neut % (Auto) Lymph % (Auto) Boyle % (Auto) Eos % (Auto) Baso % (Auto) Neut # (Auto) Lymph # (Auto) Boyle # (Auto) Eos # (Auto) Baso # (Auto) Immature Gran # (Auto) ESR PT INR APTT PTT Ratio Sodium Potassium Chloride Carbon Dioxide Anion Gap BUN Creatinine Est Cr Clr Drug Dosing Est GFR ( Amer) Est GFR (Non-Af Amer) BUN/Creatinine Ratio Glucose Calcium Troponin I High Sens 3.4 C-Reactive Protein Lipase TSH Hepatitis C Ab (EIA) Pending Hep C Ab Signal/Cutoff Pending SARS-CoV-2, RNA, NAAT NEGATIVE 01/17/22 01/17/22 01/17/22 05:52 05:52 11:06 WBC 6.88 RBC 4.12 L Hgb 12.2 Hct 37.6 MCV 91.3 MCH 29.6 MCHC 32.4 RDW Std Deviation 43.1 RDW Coeff of David 12.8 Plt Count 252 MPV 11.0 H Immature Gran % (Auto) 0.1 Neut % (Auto) 63.1 Lymph % (Auto) 24.0 Boyle % (Auto) 10.2 Eos % (Auto) 1.6 Baso % (Auto) 1.0 Neut # (Auto) 4.34 Lymph # (Auto) 1.65 Boyle # (Auto) 0.70 H Eos # (Auto) 0.11 Baso # (Auto) 0.07 Immature Gran # (Auto) 0.01 ESR 29 PT INR APTT PTT Ratio Sodium 139 Potassium 4.0 Chloride 108 H Carbon Dioxide 26 Anion Gap 5 BUN 16 Creatinine 1.07 Est Cr Clr Drug Dosing 46.7 Est GFR ( Amer) 59.2 Est GFR (Non-Af Amer) 51.1 BUN/Creatinine Ratio 15.0 Glucose 97 Calcium 8.5 Troponin I High Sens 4.7 C-Reactive Protein Lipase TSH Hepatitis C Ab (EIA) Hep C Ab Signal/Cutoff SARS-CoV-2, RNA, NAAT 01/17/22 01/17/22 11:06 11:06 WBC RBC Hgb Hct MCV MCH MCHC RDW Std Deviation RDW Coeff of David Plt Count MPV Immature Gran % (Auto) Neut % (Auto) Lymph % (Auto) Boyle % (Auto) Eos % (Auto) Baso % (Auto) Neut # (Auto) Lymph # (Auto) Boyle # (Auto) Eos # (Auto) Baso # (Auto) Immature Gran # (Auto) ESR PT INR APTT PTT Ratio Sodium Potassium Chloride Carbon Dioxide Anion Gap BUN Creatinine Est Cr Clr Drug Dosing Est GFR ( Amer) Est GFR (Non-Af Amer) BUN/Creatinine Ratio Glucose Calcium Troponin I High Sens C-Reactive Protein < 0.50 Lipase TSH 0.942 Hepatitis C Ab (EIA) Hep C Ab Signal/Cutoff SARS-CoV-2, RNA, NAAT Diagnostic Findings Telemetry personally reviewed: Sinus rhythm. No arrhythmia. Limited echo 01/17/2022: Normal LV size, wall motion, systolic function. EF 65-70%. Normal RVSP. ECGs personally reviewed: ECG 01/16/2022 at 2:29 p.m.: Sinus rhythm 67 beats per minute. RBBB. Cannot rule out inferior infarct. Anterior T-wave abnormality. ECG 01/16/2022 at 2:52 p.m.: Sinus rhythm 63 beats per minute. RBBB. Possible inferior infarct. Anterior T-wave abnormality. ECG 01/17/2022 at 6:28 a.m.: Sinus rhythm 63 beats per minute. RBBB. Possible inferior infarct. Anterior T-wave abnormality. ECG 12/19/2021 at 12:57 p.m. p.m.: Sinus bradycardia 47 beats per minute. RBBB. Possible inferior infarct. Anterior T-wave abnormality. Head CT 01/16/2022: No acute intracranial abnormality per Radiology. Chest x-ray 01/16/2022: No active disease in the chest per Radiology. Medications Administered Current Inpatient Medications Acetaminophen (Acetaminophen 325 Mg Tab) 650 mg PO Q4H PRN PRN Reason: Pain or Fever Stop: 02/15/22 20:04 Amlodipine Besylate (Amlodipine Besylate 5 Mg Tab) 2.5 mg PO DAILY LUIS MANUEL Stop: 02/16/22 08:59 Last Admin: 01/17/22 07:43 Dose: 2.5 mg Documented by: Aspirin (Aspirin 81 Mg Ectab) 81 mg PO DAILY LUIS MANUEL Stop: 02/16/22 08:59 Last Admin: 01/17/22 07:45 Dose: 81 mg Documented by: Atorvastatin Calcium (Atorvastatin 40 Mg Tab) 80 mg PO HS LUIS MANUEL Stop: 02/15/22 20:59 Last Admin: 01/16/22 21:53 Dose: 80 mg Documented by: Clopidogrel Bisulfate (Clopidogrel Bisulfate 75 Mg Tab) 75 mg PO DAILY LUIS MANUEL Stop: 02/16/22 08:59 Last Admin: 01/17/22 07:44 Dose: 75 mg Documented by: Fluoxetine HCl (Fluoxetine Hcl 20 Mg Cap) 40 mg PO QAM LUIS MANUEL Stop: 02/16/22 08:59 Last Admin: 01/17/22 07:44 Dose: 40 mg Documented by: Fluticasone Propionate (Fluticasone Propionate Na Spr 16 Gm Btl) 1 sprays NA BID LUIS MANUEL Stop: 02/15/22 20:59 Last Admin: 01/17/22 08:02 Dose: 1 sprays Documented by: Melatonin (Melatonin 3 Mg Tab) 3 mg PO HS PRN PRN Reason: Sleep Stop: 02/15/22 20:13 Nitroglycerin (Nitroglycerin Sl 0.4 Mg/Tab Tab) 0.4 mg SL Q5M PRN PRN Reason: chest pain Stop: 02/15/22 20:04 Ondansetron HCl (Ondansetron Inj 2 Mg/Ml 2 Ml Vial) 4 mg IV Q6H PRN PRN Reason: Nausea Stop: 02/15/22 20:04 Pantoprazole Sodium (Pantoprazole 40 Mg Tab) 40 mg PO BID [facility] Stop: 02/15/22 20:59 Last Admin: 01/17/22 07:45 Dose: 40 mg Documented by: Polyethylene Glycol (Polyethylene (Miralax) 17 Gm Pack) 17 gm PO DAILY PRN PRN Reason: Constipation Stop: 02/15/22 20:04 Telmisartan (Telmisartan 40 Mg Tab) 40 mg PO QAM [facility] Stop: 02/16/22 10:44 Last Admin: 01/17/22 12:12 Dose: 40 mg Documented by: Vitamin D (Cholecalciferol 1,000 Units 25 Mcg Tab) 1,000 units PO QAM [facility] Stop: 02/16/22 08:59 Last Admin: 01/17/22 07:45 Dose: 1,000 units Documented by: PG Care Time/CCT Total # of Minutes Spent Total Time Spent with Patient: Total time spent is greater than 50% in coordination of care (as documented) at patient's floor/unit and/or counseling patient: Coding Level of Care Code 21704 Office/Outpt Visit, Est Diagnoses Chest pain R07.9 Chest pain type: unspecified Coronary artery disease I25.10 Stented coronary artery Z95.5 Hyperlipidemia E78.5 Hypertension I10 (1) Chest pain Chest pain type: unspecified Qualified Code(s): R07.9 - Chest pain, unspecified
--- NOTE | 2022-01-17 15:48 | Gastrointestinal Consultation ---
Date of Consultation January 17, 2022 Assessment & Plan (1) Chest pain: (2) Chronic GERD: chest pains and chronic GERD: I do not suspect her chest pains were gerd related based on the presentation, no dysphagia, reflux, heartburn at this time. recs: --continue protonix 40 mg BID Thank you for allowing me to participate in the care of this patient History of Present Illness Attending Physician: Luis Blackman MD History of Present Illness 76-year-old male with past medical history significant for CAD s/p RCA PCI on 12/19/2021, hypertension, hyperlipidemia, GERD esophageal dysphagia, hiatal hernia, IBS, and depression who presented for evaluation of chest pain. She underwent echocardiogram today to evaluate for possible pericarditis. Previously seen by Dr. Burris and had EGD with dilation done for dysphagia which had helped her dysphagia in 02/2021. She felt like the pain was squeezing and noted frequent eructation prior to coming in. No heartburn, chest pain, reflux currently at this time. She did have dyspnea, nausea, diaphoresis associated with her chest pain. labs reviewed. Allergies Allergy/AdvReac Type Severity Reaction Status Date / Time minocycline Allergy Unknown UNKNOWN Verified 01/16/22 15:26 tetracycline Allergy Unknown Unknown Verified 01/16/22 15:26 Home Medications Medication Instructions Recorded Confirmed Type multivitamin with minerals 1 tab PO QAM tab 04/27/19 01/16/22 History (Multiple Vitamin-Minerals) biotin 1,000 mcg chewable tablet 1,000 mcg PO QAM 03/05/21 01/16/22 History cholecalciferol (vitamin D3) 25 25 mcg PO QAM 03/05/21 01/16/22 History mcg (1,000 unit) chewable tablet (Vitamin D3) fluoxetine 40 mg capsule 40 mg PO QAM #90 cap 06/14/21 01/16/22 Rx fluticasone propionate 50 1 spray INTRANASAL BID #15.8 ml 10/23/21 01/16/22 Rx mcg/actuation nasal spray,suspension (Flonase Allergy Relief) telmisartan 40 mg tablet 40 mg PO QAM 12/05/21 01/16/22 History aspirin 81 mg tablet,delayed 81 mg PO DAILY #30 tab 12/19/21 01/16/22 Rx release (Adult Low Dose Aspirin) atorvastatin 80 mg tablet 80 mg PO HS #90 tab 12/19/21 01/16/22 Rx clopidogrel 75 mg tablet 75 mg PO DAILY #30 tab 12/19/21 01/16/22 Rx nitroglycerin 0.4 mg sublingual 0.4 mg SUBLINGUAL Q5M PRN #25 tab 12/27/21 01/16/22 Rx tablet (Nitrostat) pantoprazole 40 mg tablet,delayed 40 mg PO BID 30 Days #60 tab 01/08/22 01/16/22 Rx release amlodipine 5 mg tablet 2.5 mg PO DAILY 01/16/22 01/16/22 History melatonin 5 mg capsule 5 mg PO HS PRN cap 01/16/22 01/16/22 History Patient History Medical History Anxiety Chronic GERD Depression Esophageal reflux Granuloma annulare Hearing loss Hiatal hernia Hyperlipidemia Hypertension Irritable bowel syndrome 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 Father Myocardial infarction Lung cancer Other No family history of bleeding disorder Denies family history of Colon cancer Ovarian cancer Prostate cancer Breast cancer Colorectal cancer Stroke Social History Smoking Status: Never smoker Tobacco Type: Cigarettes Age Started Using Tobacco: 22; Age Quit Using Tobacco: 42; Cigarettes Per Day: 1; Second Hand Exposure: No; Hx Alcohol Use: Yes Alcohol type: wine Alcohol Intake Frequency: 2-3 x/Week Hx Substance Use: No Preferred Language: Persian Communication Ability: Effective Visual Impairment: Limited Hearing Ability: Use of Hearing Aid Hospital Orderly Required: No Beliefs That Will Affect Care: None marital status: Current Living Situation: Family Current Living Situation Comment: Lives with Son and his family current occupational status: retired current occupation: Retired How many Children do You have: 2 Other Information That Helps Us Care for You: No Feels Safe at Home: Yes Safety Concerns: Feels Safe At This Time Childhood Exposure to Second-Hand Smoke: Yes (both parents smoked ) caffeine: Yes (coffee 1-2 cups a day ) Dental Care, Regularly: Yes Physical Activity Frequency: Does not Exercise Seatbelt Use: always Sunscreen Use: Yes Assistive Devices: Denture - Upper, Denture - Lower and Hearing Aid - Bilateral Review of Systems Constitutional: no fever, no chills and no weight loss Eyes: as per Subjective / HPI Ear, Nose, Mouth, Throat: as per Subjective / HPI Respiratory: no dyspnea and no dyspnea on exertion Cardiovascular: no chest pain and no palpitations Gastrointestinal: as per Subjective / HPI Musculoskeletal: no joint pain and no swelling Integumentary: no rash and no lesions Neurologic: no numbness and no paresthesia Psychiatric: no depression and no anxiety Endocrine: no fatigue Hematologic / Lymphatic: no easy bleeding and no easy bruising Physical Exam Constitutional: WD/WN, vitals as above Eyes: EOM intact bilaterally Neck: normal visual inspection Respiratory: normal respiratory effort, lungs clear to auscultation Cardiovascular: RRR, no murmur, no edema Gastrointestinal (Abdomen): Inspection/Auscultation: abdomen normal to inspection; abdomen not distended Percussion/Palpation: abdomen soft; abdomen nontender and no hepatosplenomegaly Musculoskeletal: Extremities: no cyanosis Gait: normal gait Skin: no rashes, warm and dry Neurologic: moves all extremities Psychiatric: A+Ox3, euthymic affect Results & Data ([facility]) Vital Signs (Past 12 Hours) Vital Signs Temp Pulse Pulse Resp BP Pulse Ox 01/17/22 11:11 36.6 C 63 16 150/66 H 96 01/17/22 08:00 67 01/17/22 07:46 36.6 C 65 16 133/72 95 01/17/22 04:13 37.0 C 68 18 133/55 L 96 PG Care Time/CCT Total # of Minutes Spent Total Time Spent with Patient: Total time spent is greater than 50% in coordination of care (as documented) at patient's floor/unit and/or counseling patient: Coding Level of Care Code 55277 Initial Inpt Care Lvl 3 Diagnoses Chest pain R07.9 Chest pain type: unspecified Chronic GERD K21.9 (1) Chest pain Chest pain type: unspecified Qualified Code(s): R07.9 - Chest pain, unspecified
--- NOTE | 2022-01-17 18:04 | XCELERA ---
[id number] [id number]
[2022-01-17] MEDS: ATORVASTATIN 40 MG TAB PO SCH (20:43)
--- NOTE | 2022-01-17 23:04 | Electrocardiogram Report ---
Test Reason : Blood Pressure : / mmHG Vent. Rate : 067 BPM Atrial Rate : 067 BPM P-R Int : 128 ms QRS Dur : 136 ms QT Int : 464 ms P-R-T Axes : 109 008 -26 degrees QTc Int : 490 ms Poor data quality, interpretation may be adversely affected Normal sinus rhythm Right bundle branch block Cannot rule out Inferior infarct , age undetermined T wave abnormality, consider anterior ischemia Abnormal ECG When compared with ECG of 19-DEC-2021 12:57, No significant change Confirmed by Vinicius Narayan ([id number]) on 01/17/2022 11:04:07 PM Referred By: Isabela Colvin Confirmed By:Vinicius Narayan
--- NOTE | 2022-01-17 23:08 | Electrocardiogram Report ---
Test Reason : Blood Pressure : / mmHG Vent. Rate : 063 BPM Atrial Rate : 063 BPM P-R Int : 148 ms QRS Dur : 122 ms QT Int : 480 ms P-R-T Axes : 017 004 -31 degrees QTc Int : 491 ms Normal sinus rhythm Right bundle branch block Inferior infarct (cited on or before 16-JAN-2022) T wave abnormality, consider anterior ischemia Abnormal ECG When compared with ECG of 16-JAN-2022 14:29, No significant change was found Confirmed by Vinicius Narayan ([id number]) on 01/17/2022 11:08:09 PM Referred By: Isabela Colvin Confirmed By:Vinicius Narayan
--- NOTE | 2022-01-18 06:13 | Electrocardiogram Report ---
Test Reason : Blood Pressure : / mmHG Vent. Rate : 063 BPM Atrial Rate : 063 BPM P-R Int : 192 ms QRS Dur : 120 ms QT Int : 448 ms P-R-T Axes : 029 016 -29 degrees QTc Int : 458 ms Normal sinus rhythm Right bundle branch block Cannot rule out Inferior infarct (cited on or before 16-JAN-2022) T wave abnormality, consider anterior ischemia Abnormal ECG When compared with ECG of 16-JAN-2022 14:52, No significant change Confirmed by Vinicius Narayan ([id number]) on 01/18/2022 6:12:50 AM Referred By: Isabela Colvin Confirmed By:Vinicius Narayan
[2022-01-18] MEDS: amLODIPine BESYLATE 5 MG TAB PO SCH (08:51)
[2022-01-18] MEDS: FLUTICASONE PROPIONATE NA SPR 16 GM BTL SCH (08:52)
[2022-01-18] MEDS: ASPIRIN 81 MG ECTAB PO SCH (08:53)
[2022-01-18] MEDS: CHOLECALCIFEROL 1,000 UNITS 25 MCG TAB PO SCH (08:53)
[2022-01-18] MEDS: TELMISARTAN 40 MG TAB PO SCH (08:53)
[2022-01-18] MEDS: CLOPIDOGREL BISULFATE 75 MG TAB PO SCH (08:54)
[2022-01-18] MEDS: PANTOprazole 40 MG TAB PO SCH (08:55)
[2022-01-18] MEDS: FLUoxetine HCL 20 MG CAP PO SCH (08:55)
--- NOTE | 2022-01-18 13:01 | Discharge Summary ---
Date of Service January 18, 2022 Admission HPI Per Admitting Provider Ana Cobb is a 76-year-old male with past medical history significant for CAD s/p RCA PCI on 12/19/2021, hypertension, hyperlipidemia, GERD esophageal dysphagia, hiatal hernia, IBS, and depression who presents today for evaluation of chest pain. Patient was out shopping last evening, talking with a family member when she felt herself become short of breath with conversation, and developed a central chest pressure with associated nausea and diaphoresis. She took nitroglycerin at home, notes it was the first time taking it, and it did relieve her chest pain but she got dizzy. The chest pain came and went thro ughout the night, never radiating or becoming more than a 5-6/10. Then, today she as at cardiology f/u appt when she relayed this information and also noted she was having the same chest pain then. ECG in the office showed sinus rhythm with RBBB and nonspecific T wave abnormality. She was also given nitro, following administration she was lightheaded and passed out in her chair and vomited. She was found to be hypotensive with SBP 90s. After a few minutes, she regained consciousness and EMS was called and she was taken to the ED for further evaluation. In ED, initially presented with RR 32, hypertensive with SBP 160/61, otherwise vital signs within normal limits and stable. Labs significant for BUN 25, creatinine 1.30 (baseline 0.91.0). Initial HS trop 3.1. Head CT and CXr unremarkable. Patient was given nitro, Ativan, Zofran, and IVF in ED. Hospitalist service consutled for further evaluation and admission. Discharge Data Allergies Allergy/AdvReac Type Severity Reaction Status Date / Time minocycline Allergy Unknown UNKNOWN Verified 01/16/22 15:26 tetracycline Allergy Unknown Unknown Verified 01/16/22 15:26 Consultations 01/16/22 16:20 ED Decision to Admit Stat 01/16/22 20:05 Consult Cardiology Routine 01/17/22 10:16 Consult Gastroenterology Routine Ordered Studies 01/16/22 15:03 CT head/brain wo con Stat Hospital Course (1) Chest pain: Resolved this morning. - Serial troponins negative and given recent cardiac cath without significant residual disease, duration of symptoms and not significant exertional component I have a low suspicion of coronary artery disease (angina) as cause. - Positional component suggestive of pericarditis (Grecia's syndrome) vs. GERD. TTE ordered to assess for pericardial effusion. Cardiology consult pending to assess for pericarditis. - Will consult GI to consider repeat EGD to assess for GERD (pending normal TTE), if no EGD planned will consider adding carafate if echocardiogram normal. (2) Syncope: - Suspect secondary to nitroglycerin. In setting of mild dehydration represented by mild BUN/Cr elevation on admission. Resolved with IV fluids. Will continue on her routine BP meds for now and take orthostatics q shift. (3) Coronary artery disease: - s/p RCA PCI last month. - Continue DAPT w/ ASA+Plavix, ARB, statin, nitroglycerin prn. (4) Hypertension: - Continue amlodipine and telmisartan - Could consider d/c amlodipine if angina ruled out as may be contributing towards reflux. (5) Hyperlipidemia: - Continue atorvastatin 80 mg daily. (6) Chronic GERD: - Continue Protonix 40 mg twice daily. - Follows with [facility] as outpatient - will consult while she is here for consideration of repeat EGD. (7) Hiatal hernia: Noted to be small on EGD in 2020 (8) Depression: - Continue fluoxetine. (9) Irritable bowel syndrome: Noted history of this - OBS med/tele. - SCDS for DVT ppx. - Full Code. Discharge Plan Discharge Items Patient Disposition: Home - Self-Care Reason For Visit: SYNCOPE Discharge Diagnosis: Syncope (fainting) due to nitroglycerin and dehydration Atypical chest pain Activity: Resume your previous activity Non-emergency contact: Primary Care Provider Call non-emergency contact if: you have any medication questions and your symptoms worsen Follow-up/Referrals: Isabela Colvin MD [Primary Care Provider] - Diet: Heart Healthy Addtl Attending Provider Instructions: You were observed at [facility] from January 16 -2021 due to a syncopal event after nitroglycerin given. Labs on admission also suspected you were mildly dehydrated. Urine analysis not performed but you denied any urinary symptoms. No orthostatic hypotension was seen after nitroglycerin wore off the refore recommend continuing your usual home blood pressure medications. Your chest pain on lying flat was potentially concerning for heartburn vs. pericarditis. Serial negative troponins ruled out a heart attack. No pericardial effusion was noted on echocardiogram and inflammatory markers were normal essential ruling out pericarditis as a cause. Gastroenterology recommended just continuing your usual heartburn medication but were also unconvinced this was the cause of your symptoms. No definitive etiology has been found but your since your symptoms have now resolved, recommend just following up with your outpatient providers. It is fine to start cardiac rehabilitation on Friday. No changes to your home medications were made. Pending Studies at Discharge: No Stand-Alone Forms: My [facility], Smoking Cessation Medications and DC Order Prescriptions: Continued fluoxetine 40 mg capsule 40 mg PO QAM Qty: 90 RF: 3 nitroglycerin [Nitrostat] 0.4 mg tablet, sublingual 0.4 mg sublingual Q5M PRN (Reason: chest pain) Qty: 25 RF: 2 pantoprazole 40 mg tablet,delayed release (DR/EC) 40 mg PO BID 30 Days Qty: 60 RF: 1 melatonin 5 mg capsule 5 mg PO HS PRN (Reason: Sleep) RF: 0 fluticasone propionate [Flonase Allergy Relief] 50 mcg/actuation spray,suspension 1 spray intranasal BID Qty: 15.8 RF: 8 multivitamin with minerals [Multiple Vitamin-Minerals] tablet 1 tab PO QAM RF: 0 cholecalciferol (vitamin D3) [Vitamin D3] 25 mcg (1,000 unit) Tablet,Chewable 25 mcg PO QAM RF: 0 biotin 1,000 mcg Tablet,Chewable 1,000 mcg PO QAM RF: 0 telmisartan 40 mg tablet 40 mg PO QAM RF: 0 clopidogrel 75 mg tablet 75 mg PO DAILY Qty: 30 RF: 6 aspirin [Adult Low Dose Aspirin] 81 mg tablet,delayed release (DR/EC) 81 mg PO DAILY Qty: 30 RF: 11 atorvastatin 80 mg tablet 80 mg PO HS Qty: 90 RF: 3 amlodipine 5 mg tablet 2.5 mg PO DAILY RF: 0 Discharge Orders: Discharge Order (Routine); Ordered 01/18/22 Ordered By: Luis Blackman Admission Data Admit Date/Time: 01/16/22 16:50 Attending Provider: Luis Blackman Admit Provider: Rodrick Gleason Primary Care Provider: Isabela Colvin Other Providers: Rodrick Gleason ; Vinicius Narayan ; Fabricio Perez Coding Diagnoses Chest pain R07.9 Chest pain type: unspecified Syncope R55 Syncope type: unspecified Coronary artery disease I25.10 Hypertension I10 Hyperlipidemia E78.5 Chronic GERD K21.9 Hiatal hernia K44.9 Depression F32.9 Irritable bowel syndrome K58.9
--- NOTE | 2022-01-19 06:13 | Electrocardiogram Report ---
Test Reason : Blood Pressure : / mmHG Vent. Rate : 057 BPM Atrial Rate : 057 BPM P-R Int : 172 ms QRS Dur : 122 ms QT Int : 458 ms P-R-T Axes : 059 019 -20 degrees QTc Int : 445 ms Sinus bradycardia Right bundle branch block Cannot rule out Inferior infarct (cited on or before 16-JAN-2022) Abnormal ECG When compared with ECG of 17-JAN-2022 06:28, No significant change Confirmed by Vinicius Narayan ([id number]) on 01/19/2022 6:12:33 AM Referred By: Isabela Colvin Confirmed By:Vinicius Narayan
== END 2022-01-18 13:51 | disposition home or self-care (01) ==
LOC: ED 14:13 → 2E 14:13 → SUATTDRO 16:50 → 2E 19:32

== ENCOUNTER 2023-06-29 10:16 | Observation (INO) ==
[2023-06-29] MEDS ORDERED: fentaNYL citrate PF 100 MCG/2 ML VIAL ONE (10:48)
[2023-06-29] MEDS ORDERED: fentaNYL citrate PF 100 MCG/2 ML VIAL IV STA (10:49)
--- NOTE | 2023-06-29 10:56 | Emergency Department Note ---
Impression & Plan Substernal chest pain, Syncope and collapse ED Provider Note Name: IZABELLA CLEMENS Age: 78 Sex: Female Arrives Via: Walk-In Informant: Patient ED Provider: Horace Woods MD Chief Complaint: Chest pain Impression: As per impressions above Medical Decision Makin-year-old female with history of CAD status post stenting about 6 months ago recently stopped her Plavix arrives for evaluation for crushing substernal chest pressure who had a syncopal event while in triage. Initial EKG is similar to previous and repeat is unchanged. Given her syncopal event with severe chest pain she was sent emergently to CT. She had a CT of the head which was unremarkable as well as a CT PE study of the chest which revealed no evidence of dissection or PE. Initial laboratory work-up is relatively benign with a negative troponin. She was given IV fentanyl and Zofran x2 with gradual improvement in pain. With negative troponins and unremarkable CT I think this is more likely esophageal and thus she was given some IV Protonix and GI cocktail. She is feeling much better however in the setting of syncope and chest pain and her history I do not feel would be appropriate to discharge her at this time. I discussed this further with the hospitalist and they are on board with this plan. Patient is comfortable staying in the hospital and is stable at time of hospitalization Triage/Nursing Notes reviewed by Me External Chart Review by me: 06/19/2023 PCP visit for past medical history and medication. Differential:Cardiac ischemia, aortic dissection, pulmonary embolism, pneumothorax, pneumonia, pericarditis, myocarditis, esophageal rupture, GERD, cholecystitis, pancreatitis, musculoskeletal, as well as other pathologies. Vital Signs: reviewed and remarkable for hypertension Interventions: Fentanyl IV, Zofran IV x2, Protonix IV, GI cocktail Labs:ED labs Reviewed by me and remarkable for no significant abnormalities Imaging: CT of the chest with angiography as per my informal interpretation reveals no pneumothorax, PE, dissection, pneumonia CT of the head without contrast no intracranial hemorrhage or mass effect. EKG:As per my interpretation. Indication chest pain and syncope. Normal sinus rhythm at 64 bpm without ectopy nor ischemia. QTc 464. There is a right bundle branch block. When compared to January 18, 2022 EKG there is no significant change. Cardiac/Tele Monitoring: Cardiac Monitoring: An Order was placed for continuous cardiac monitoring. The monitor shows a rate of 60 with a normal sinus rhythm. Consults:Dr. Blackman of the [facility] service Plan: Disposition:Hospitalization. Condition: Good History of Present Illness: 78-year-old female arrives for evaluation of chest pain. Patient notes substernal chest pressure gradually worsening throughout the morning. Associated with some radiation to her back as well as nausea and burping.. No significant shortness of breath, palpitations, lightheadedness, vomiting, abdominal pain, low back pain, urinary/bowel symptoms, leg swelling, calf pain or other concerning signs or symptoms. No medications prior to arrival. Patient was recently started on steroids. She does have a history of GERD. Per nursing staff patient had a syncopal event while in triage Past Medical History:See Below Home Medications:See Below Allergies:See Below Vitals:Blood Pressure: 150/90, Pulse 65, RR 25, T 36.4 C, O2 98% on RA Physical Exam: GENERAL: Patient is very uncomfortable appearing and in moderate distress. RESPIRATORY: No dyspnea. Clear to auscultation and equal bilaterally. CARDIOVASCULAR: Regular rate and rhythm.No murmur appreciated. GASTROINTESTINAL: Abdomen soft, non-tender, no peritonitis. EXTREMITIES: Normal motion all extremities, no cyanosis, no edema. NEUROLOGIC: Alert and oriented. No focal neurologic deficits appreciated SKIN: No rash, no jaundice, no diaphoresis. PSYCH: Appropriate GCS: 15 ED Course: Times/Reassessments: Patient is gradually feeling much better. Repeat abdominal exam continues to be benign. Her respiratory status has improved. She is comfortable plan for hospitalization. 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 Father Myocardial infarction Lung cancer Other No family history of bleeding disorder Denies family history of Colon cancer Ovarian cancer Prostate cancer Breast cancer Colorectal cancer Stroke Social History Smoking Status: Never smoker Tobacco Type: Cigarettes Age Started Using Tobacco: 22; Age Quit Using Tobacco: 42; Cigarettes Per Day: 1; Second Hand Exposure: No; Do You Dip or Chew Tobacco: No; Hx Alcohol Use: Yes Alcohol type: wine Alcohol Intake Frequency: 2-3 x/Week Hx Substance Use: No Preferred Language: Armenian Communication Ability: Effective Visual Impairment: Limited Hearing Ability: Use of Hearing Aid Belt Knife Feeder Required: No Beliefs That Will Affect Care: None marital status: Current Living Situation: Family Current Living Situation Comment: Lives with Son and his family current occupational status: retired current occupation: Retired How many Children do You have: 2 Feels Safe at Home: Yes Safety Concerns: Feels Safe At This Time Childhood Exposure to Second-Hand Smoke: Yes (both parents smoked ) caffeine: Yes (coffee 1-2 cups a day ) Dental Care, Regularly: Yes Physical Activity Frequency: Does not Exercise Seatbelt Use: always Sunscreen Use: Yes Assistive Devices: Glasses Allergies Allergies Allergy/AdvReac Type Severity Reaction Status Date / Time minocycline Allergy Unknown UNKNOWN Verified 06/29/23 12:12 tetracycline Allergy Unknown Unknown Verified 06/29/23 12:12 Home Meds Home Medications Medication Instructions Recorded Confirmed multivitamin with minerals 1 tab PO QAM 04/27/19 06/29/23 (Multiple Vitamin-Minerals tablet) cholecalciferol (vitamin D3) 25 25 mcg PO QAM 03/05/21 06/29/23 mcg (1,000 unit) chewable tablet (Vitamin D3) melatonin 5 mg capsule 5 mg PO HS PRN Sleep 01/16/22 06/29/23 Previous Rx's Medication Instructions Recorded aspirin 81 mg tablet,delayed 81 mg PO DAILY #30 tabs 12/19/21 release (Adult Low Dose Aspirin) nitroglycerin 0.4 mg sublingual 0.4 mg sublingual Q5M PRN chest 12/27/21 tablet (Nitrostat) pain #25 tabs fluticasone propionate 50 1 spray intranasal BID #47.4 mL 06/19/22 mcg/actuation nasal spray,suspension (Flonase Allergy Relief) pantoprazole 40 mg tablet,delayed 40 mg PO DAILY 90 days #90 tabs 01/27/23 release rosuvastatin 20 mg tablet (Crestor) 20 mg PO DAILY #90 tabs 05/19/23 fluoxetine 40 mg capsule 40 mg PO DAILY #90 caps 05/29/23 amlodipine 5 mg tablet 5 mg PO DAILY #90 tabs 06/09/23 telmisartan 40 mg tablet 40 mg PO DAILY #90 tabs 06/09/23 Results & Data (ED) Vital Signs Vital Signs - 24 hr 06/29/23 11:27 06/29/23 11:27 06/29/23 11:30 Pulse Rate 80 69 Pulse Rate from SpO2 Sensor 69 Respiratory Rate 12 18 Blood Pressure 151/71 H 151/71 H 167/69 H Blood Pressure Mean 97 107 101 Pulse Oximetry 98 06/29/23 11:56 06/29/23 12:00 Pulse Rate 62 62 Pulse Rate from SpO2 Sensor 63 Respiratory Rate 16 18 Blood Pressure 140/65 137/67 Blood Pressure Mean 90 90 Pulse Oximetry 100 Laboratory Data 06/30/23 01:07 06/30/23 01:07 Lab Results 06/29/23 Range/Units 10:37 WBC 8.96 (4.8-10.8) K/ul RBC 5.01 (4.20-5.40) M/uL Hgb 15.1 (12.0-16.0) g/dl Hct 44.7 (37.0-47.0) % MCV 89.2 (80.0-100.0) fL MCH 30.1 (25.0-34.0) pg MCHC 33.8 (32.0-36.0) g/dL RDW Std Deviation 41.4 (36.4-46.3) fL RDW Coeff of David 12.7 (11.5-14.5) % Plt Count 325 (130-400) K/uL MPV 11.3 (9.4-12.4) fL Immature Gran % (Auto) 0.3 % Neut % (Auto) 52.2 % Lymph % (Auto) 33.5 % [place] % (Auto) 11.6 % Eos % (Auto) 1.2 % Baso % (Auto) 1.2 % Neut # (Auto) 4.67 (1.40-6.50) K/uL Lymph # (Auto) 3.00 (1.20-3.40) K/uL [place] # (Auto) 1.04 H (0.11-0.59) K/uL Eos # (Auto) 0.11 (0.00-0.50) K/uL Baso # (Auto) 0.11 (0.00-0.20) K/uL Immature Gran # (Auto) 0.03 (0.01-0.20) K/uL PT Cancelled INR Cancelled APTT Cancelled PTT Ratio Cancelled Sodium 138 (136-145) mmol/L Potassium 3.7 (3.5-5.1) mmol/L Chloride 101 (98-107) mmol/L Carbon Dioxide 28 (21-32) mmol/L Anion Gap 9 (3-11) BUN 23 (6-23) mg/dl Creatinine 1.03 (0.6-1.2) mg/dl Est Cr Clr Drug Dosing 46.7 ml/min Est GFR ( Amer) 61.2 ml/min Est GFR (Non-Af Amer) 52.8 ml/min BUN/Creatinine Ratio 22.3 H (10-20) Glucose 99 (70-99(Fasting)) mg/dl Calcium 9.6 (8.6-10.3) mg/dl Total Bilirubin 0.7 (0.2-1.0) mg/dl AST 20 (13-39) U/L ALT 26 (7-52) U/L Alkaline Phosphatase 69 (34-104) U/L Troponin I High Sens 3.3 (0-14) pg/ml Total Protein 7.7 (6.0-8.3) gm/dl Albumin 4.4 (3.4-5.0) gm/dl Globulin 3.3 (2.5-4.0) gm/dl Albumin/Globulin Ratio 1.3 (0.9-2) Lipase 27 (11-82) U/L Administered Medications Amlodipine Besylate (Amlodipine Besylate 5 Mg Tab) 5 mg PO DAILY LUIS MANUEL Stop: 07/30/23 08:59 Last Admin: 06/30/23 07:55 Dose: 5 mg Documented By: FLORECITA Aspirin (Aspirin 81 Mg Ectab) 81 mg PO DAILY LUIS MANUEL Stop: 07/30/23 08:59 Last Admin: 06/30/23 07:54 Dose: 81 mg Documented By: FLORECITA Famotidine (Famotidine 20 Mg Tab) 20 mg PO BID LUIS MANUEL Stop: 07/29/23 20:59 Last Admin: 06/30/23 07:55 Dose: 20 mg Documented By: Admin: 06/29/23 20:58 Dose: 20 mg Documented By: ANNELIESE Fluoxetine HCl (Fluoxetine Hcl 20 Mg Cap) 40 mg PO DAILY LUIS MANUEL Stop: 07/30/23 08:59 Last Admin: 06/30/23 07:55 Dose: 40 mg Documented By: FLORECITA Losartan Potassium (Losartan Potassium 50 Mg Tab) 50 mg PO DAILY LUIS MANUEL Stop: 07/30/23 08:59 Last Admin: 06/30/23 07:55 Dose: 50 mg Documented By: FLORECITA Pantoprazole Sodium (Pantoprazole 40 Mg Tab) 40 mg PO BID LUIS MANUEL Stop: 07/29/23 20:59 Last Admin: 06/30/23 07:55 Dose: 40 mg Documented By: Admin: 06/29/23 20:58 Dose: 40 mg Documented By: ANNELIESE Rosuvastatin Calcium (Rosuvastatin Calcium 20 Mg Tab) 20 mg PO DAILY LUIS MANUEL Stop: 07/30/23 08:59 Last Admin: 06/30/23 07:55 Dose: 20 mg Documented By: FLORECITA Sucralfate (Sucralfate 1 Gm/10 Ml Udc) 1 gm PO QID LUIS MANUEL Stop: 07/29/23 12:59 Last Admin: 06/30/23 07:54 Dose: 1 gm Documented By: Admin: 06/29/23 20:59 Dose: 1 gm Documented By: Admin: 06/29/23 17:38 Dose: 1 gm Documented By: Admin: 06/29/23 14:36 Dose: 1 gm Documented By: MT Discontinued Medications Al Hydrox/Mg Hydrox/Simethicone (Aluminum/Magnesium Susp 30 Ml Udc) 30 ml PO NOW STA Stop: 06/29/23 12:08 Last Admin: 06/29/23 12:24 Dose: 30 ml Documented By: KENJI Fentanyl Citrate (Fentanyl Citrate Pf 100 Mcg/2 Ml Vial) Confirm Administered Dose 100 mcg .ROUTE .STK-MED ONE Stop: 06/29/23 10:49 Last Admin: 06/29/23 10:51 Dose: Not Given Documented By: BERTRAM Fentanyl Citrate (Fentanyl Citrate Pf 100 Mcg/2 Ml Vial) 50 mcg IV NOW STA Stop: 06/29/23 10:50 Last Admin: 06/29/23 10:51 Dose: 50 mcg Documented By: BERTRAM Pantoprazole Sodium 80 mg/ (Dextrose) 120 mls @ 480 mls/hr IV ONE STA Stop: 06/29/23 12:21 Last Infusion: 06/29/23 15:04 Dose: Infused Documented By: Admin: 06/29/23 12:24 Dose: 480 mls/hr Documented By: KENJI Lactated Ringer's (Lr) 1,000 mls @ 80 mls/hr IV .[id number] LUIS MANUEL Stop: 06/30/23 01:29 Last Infusion: 06/30/23 02:19 Dose: Infused Documented By: Admin: 06/29/23 14:42 Dose: 80 mls/hr Documented By: KENJI Ioversol (Optiray 320 125ml) 119 ml IV ONCE ONE Stop: 06/29/23 11:18 Last Admin: 06/29/23 11:18 Dose: 119 ml Documented By: JONATHAN Ondansetron HCl (Ondansetron Inj 2 Mg/Ml 2 Ml Vial) 4 mg IV NOW STA Stop: 06/29/23 11:07 Last Admin: 06/29/23 11:08 Dose: 4 mg Documented By: NIKOLAS Ondansetron HCl (Ondansetron Inj 2 Mg/Ml 2 Ml Vial) 4 mg IV NOW STA Stop: 06/29/23 11:30 Last Admin: 06/29/23 11:31 Dose: 4 mg Documented By: NIKOLAS Discharge Plan Visit Data Chief Complaint: Cardiac Assessment Stated Complaint: PRESSURE IN CHEST SINCE FRIDAY ED Provider: Horace Woods Discharge Problem: Substernal chest pain, Syncope and collapse Discharge Instructions Interventions: ED Discharge Assessment Last Done: 06/29/23 13:26
--- NOTE | 2023-06-29 11:01 | XRay Report ---
XR chest 1V portable HISTORY: Chest pain, nonspecific COMPARISON: Chest 01/16/2022. FINDINGS: The lungs are clear. Cardiac silhouette is normal in size. No pleural effusions. No pneumot horax. IMPRESSION: No acute process. ACT 112: Negative or not required by law. Electronically signed by: Shaan Carrillo M.D. 06/29/2023 10:59 AM
[2023-06-29] MEDS ORDERED: ONDANSETRON INJ 2 MG/ML 2 ML VIAL IV STA ×2 (11:06→11:29)
[2023-06-29] MEDS ORDERED: OPTIRAY 320 125ml IV ONE (11:17)
[2023-06-29 11:24] LABS: Basophils # (auto) 0.11 K/uL (0.00-0.20); Basophils % (auto) 1.2 %; Eosinophils # (auto) 0.11 K/uL (0.00-0.50); Eosinophils % (auto) 1.2 %; Hematocrit (blood only) 44.7 % (37.0-47.0); Hemoglobin 15.1 g/dl (12.0-16.0); Immature Granulocytes # (auto) 0.03 K/uL (0.01-0.20); Immature Granulocytes % (auto) 0.3 %; Lymphocytes % (auto) 33.5 %; Mean Corpuscular Hemoglobin 30.1 pg (25.0-34.0); Mean Corpuscular Hgb Conc 33.8 g/dL (32.0-36.0); Mean Corpuscular Volume 89.2 fL (80.0-100.0); Mean Platelet Volume 11.3 fL (9.4-12.4); Monocytes # (auto) 1.04 K/uL (0.11-0.59); Monocytes % (auto) 11.6 %; Neutrophils # (auto) 4.67 K/uL (1.40-6.50); Neutrophils % (auto) 52.2 %; Platelet Count 325 K/uL (130-400); RDW Coefficient of Variation 12.7 % (11.5-14.5); RDW Standard Deviation 41.4 fL (36.4-46.3); Red Blood Count 5.01 M/uL (4.20-5.40); White Blood Count 8.96 K/ul (4.8-10.8)
--- NOTE | 2023-06-29 11:35 | CT Scan Report ---
HEAD CT NONCONTRAST CT DOSE: HISTORY: syncope TECHNIQUE: Multiaxial CT images of the head were performed without the use of intravenous contrast. A utomated exposure control was utilized for this study. A dose lowering technique was utilized adheri ng to the principles of ALARA. Comparison: Head CT 05/05/2023. Findings: The paranasal sinuses and mastoid air cells are clear. The calvarium and skull base are int act. The ventricles and sulci are within normal limits. There is no mass, hematoma, midline shift, or acute infarct. Impression: No acute intracranial abnormality. ACT 112: Negative or not required by law. Electronically signed by: Shaan Carrillo M.D. 06/29/2023 11:33 AM
[2023-06-29 11:42] LABS: Albumin Globulin Ratio 1.3 (0.9-2); Albumin Level 4.4 gm/dl (3.4-5.0); BUN Creatinine Ratio 22.3 (10-20); Bilirubin,Total 0.7 mg/dl (0.2-1.0); Calcium 9.6 mg/dl (8.6-10.3); Creatinine Clr Calc Pharmacy 46.7 ml/min; Est GFR (African American) 61.2 ml/min; Est GFR (Non-African American) 52.8 ml/min; Globulin 3.3 gm/dl (2.5-4.0); Potassium 3.7 mmol/L (3.5-5.1); Total Protein 7.7 gm/dl (6.0-8.3)
--- NOTE | 2023-06-29 11:46 | CT Scan Report ---
CHEST CTA for PULMONARY ARTERIES CT DOSE: 1392.82 mGy.cm HISTORY: PE - syncope, chest pain TECHNIQUE: Multiaxial CT images of the chest were performed following the intravenous administration of contrast to evaluate the pulmonary arteries. 3D/Maximal intensity projection images were also obta ined. Sagittal and coronal reformations were also reviewed. A dose lowering technique was utilized a dhering to the principles of ALARA. COMPARISON STUDY: Chest CTA 12/05/2021. FINDINGS: There are healing right anterior third through seventh nondisplaced rib fractures. No acute fractures within the chest. The central airways are patent. No pneumothorax. No pleural effusions. L inear scarlike density seen within the lingula. No focal lung consolidations to suggest a pneumonia. No evidence for pulmonary edema. Stable 12 mm left thyroid nodule. This does not meet CT criteria for pathologic involvement. Limited views of the upper abdomen demonstrate a normal spleen and adrenal g lands. Prior cholecystectomy. Small hiatus hernia is noted. Mild bile duct dilatation is likely due t o the patient's postcholecystectomy state. Normal caliber esophagus. The heart is normal in size. No pericardial effusion. No mediastinal or hilar lymphadenopathy. Normal caliber thoracic aorta with no evidence for a dissection. No filling defects within the pulmonary arteries to suggest a pulmonary em bolus. IMPRESSION: 1. No evidence for a pulmonary embolus. 2. Healing right anterior third through seventh nondisplaced rib fractures. No pneumothorax. No acute fractures within the chest. 3. No focal lung consolidations. 4. Small hiatus hernia. ACT 112: Negative or not required by law. Electronically signed by: Shaan Carrillo M.D. 06/29/2023 11:44 AM
[2023-06-29 11:49] LABS: Troponin I High Sensitivity 3.3 pg/ml (0-14)
[2023-06-29] MEDS ORDERED: ALUMINUM/MAGNESIUM SUSP 30 ML UDC PO STA (12:07)
[2023-06-29] MEDS ORDERED: PANTOprazole 80 MG in DEXTROSE 5% 100 ML IV STA (12:07)
--- NOTE | 2023-06-29 12:25 | History & Physical Report ---
Date of Service June 29, 2023 Assessment & Plan (1) Chest pain: Plan: -Admit to med/tele -Currently stable with resolved symptoms after receiving a dose of maalox -At this time the patient's chest/epigastric discomfort appears more likely to be associated with exacerbation of her chronic reflux -Patient recently received a course of oral steroids, had decreased her pantoprazole from BID to daily, and had an central african sub for dinner last night -Her cardiac workup is unremarkable so far, symptoms resolved after receiving maalox, and the patient had a very similar admission last year -Chest xray and CTA of the chest with PE protocol were negative for acute causes of her pain -Currently receiving 80 mg IV pantoprazole ordered in the ED -Will increased her daily pantoprazole to BID and start QID Carafate -Will monitor 2 hour high sen trop and trend overnight, montior on tele -SQ lovenox for DVT PPX -HH diet -AM CBC, BMP, mag (2) Syncope: Plan: -Likely a vasovagal reaction to GI distress from significant reflux -CT head negative, vitals stable, no focal neuro defects -Continue cardiac workup and treatment of GI symptoms -Fall precautions -Will give 1L LR on admission (3) Rib fractures: Plan: -Patient noted to have right, 3rd-7th, non-displaced rib fractures -Likely occurred with her recent fall but not picked up on ED eval as she was not complaining of chest pain that day -No respiratory distress, stable on RA -Supportive measures with prn tylenol and incentive spirometry (4) Hyperlipidemia: Plan: -Conitnue statin (5) Chronic GERD: Plan: -Pantoprazole and carafate (6) Hypertension: Plan: -Stable -Can continue antihypertensives tomorrow as long as she is stable (7) Coronary artery disease: Plan: -Conitue aspirin Plan The patient was discussed with Dr. Blackman at the time of the admission History of Present Illness Chief Complaint: Chest/epigastric pain Primary Care Provider: Isabela Colvin MD Ana is an 78 year old female with a PMH significant for CAD s/p RCA PCI on 12/19/2021, hypertension, hyperlipidemia, GERD esophageal dysphagia, hiatal hernia, IBS, and depression who presented to the [facility] ED on 06/29 with epigastric/chest pain and nausea which began on 06/26. While in the waiting room the patient had a syncopal episode and was initially taken to one of the trauma bays. She remained stable while in the ED. Labs including CBC, CMP, initial high sen trop were unremarkable. Chest xray was read as no acute process. Chest CTA with PE protocol was read as "1. No evidence for a pulmonary embolus. 2. Healing right anterior third through seventh nondisplaced rib fractures. No pneumothorax. No acute fractures within the chest. 3. No focal lung consolidations. 4. Small hiatus hernia.". Ct of the head wo con was read as negative for acute processes. Prior to admission the patient was given 2 a dose of 50 mcg and 100 mcg fentanyl, a dose of maalox, dose of 80 mg IV pantoprazole, and 8 mg IV zofran. At the time of the exam the patient was lying in bed in no acute distress. She states that she has been experiencing progressively worsening epigastric/lower substernal chest discomfort and nausea since 06/26. She states that this am her symptoms were severe prompting her to come to the ED. She describes the pain as burning/pressure which initially began in the epigastric region and has moved up her central chest. The pain has not radiated anywhere else. She states that she ate an French sub last night. She was told she could decrease her bid pantoprazole to daily approximately 2 months ago so she has been taking it once daily. She confirms that she has been belching and tasting an acidic/metallic taste since 06/26. She was treated for a respiratory illness with amoxicillin and a course of steroids approximately 2 weeks ago. Her symptoms have currently resolved after receiving maalox and starting IV pantoprazole in the ED. She was unaware of the previous right rib fractures but states that she was seen in the ED approximately 2-3 weeks ago after a fall. She states that she did not have chest pain on the day of evaluation but started to develop right sided chest pain the day after. She denies recent fever, chills, cough, SOB, vomiting, diarrhea, dysuria, hematuria, melena, LE swelling and other falls since her last. She wishes to be a full code and for her son to make medical decisions for her if she cannot make them herself. Please refer to Dr. Blackman's attestation for any changes to the treatment plan Allergies Allergy/AdvReac Type Severity Reaction Status Date / Time minocycline Allergy Unknown UNKNOWN Verified 06/29/23 12:12 tetracycline Allergy Unknown Unknown Verified 06/29/23 12:12 Home Medications Medication Instructions Recorded Confirmed Type multivitamin with minerals 1 tab PO QAM 04/27/19 06/29/23 History (Multiple Vitamin-Minerals tablet) cholecalciferol (vitamin D3) 25 25 mcg PO QAM 03/05/21 06/29/23 History mcg (1,000 unit) chewable tablet (Vitamin D3) aspirin 81 mg tablet,delayed 81 mg PO DAILY #30 tabs 12/19/21 06/29/23 Rx release (Adult Low Dose Aspirin) nitroglycerin 0.4 mg sublingual 0.4 mg sublingual Q5M PRN chest 12/27/21 06/29/23 Rx tablet (Nitrostat) pain #25 tabs melatonin 5 mg capsule 5 mg PO HS PRN Sleep 01/16/22 06/29/23 History fluticasone propionate 50 1 spray intranasal BID #47.4 mL 06/19/22 06/29/23 Rx mcg/actuation nasal spray,suspension (Flonase Allergy Relief) pantoprazole 40 mg tablet,delayed 40 mg PO DAILY 90 days #90 tabs 01/27/23 06/29/23 Rx release rosuvastatin 20 mg tablet (Crestor) 20 mg PO DAILY #90 tabs 05/19/23 06/29/23 Rx fluoxetine 40 mg capsule 40 mg PO DAILY #90 caps 05/29/23 06/29/23 Rx amlodipine 5 mg tablet 5 mg PO DAILY #90 tabs 06/09/23 06/29/23 Rx telmisartan 40 mg tablet 40 mg PO DAILY #90 tabs 06/09/23 06/29/23 Rx Past Med/Surg History Medical History (Updated 06/29/23 @ 13:01 by Dennis Levine PA-C) Osteopenia Impaired fasting glucose Coronary artery disease s/p RCA stent 12/2021 Daily headache Hiatal hernia Hypertension Mixed conductive and sensorineural hearing loss of left ear with restricted hearing of right ear Acquired deviated nasal septum Motor tic disorder Chronic GERD Depression Goiter diffuse, nontoxic Hyperlipidemia Irritable bowel syndrome 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 Father Myocardial infarction Lung cancer Other No family history of bleeding disorder Denies family history of Colon cancer Ovarian cancer Prostate cancer Breast cancer Colorectal cancer Stroke Social History Smoking Status: Never smoker Tobacco Type: Cigarettes Age Started Using Tobacco: 22; Age Quit Using Tobacco: 42; Cigarettes Per Day: 1; Second Hand Exposure: No; Do You Dip or Chew Tobacco: No; Hx Alcohol Use: Yes Alcohol type: wine Alcohol Intake Frequency: 2-3 x/Week Hx Substance Use: No Preferred Language: Macedonian Communication Ability: Effective Visual Impairment: Limited Hearing Ability: Use of Hearing Aid Manager Welding Required: No Beliefs That Will Affect Care: None marital status: Current Living Situation: Family Current Living Situation Comment: Lives with Son and his family current occupational status: retired current occupation: Retired How many Children do You have: 2 Feels Safe at Home: Yes Safety Concerns: Feels Safe At This Time Childhood Exposure to Second-Hand Smoke: Yes (both parents smoked ) caffeine: Yes (coffee 1-2 cups a day ) Dental Care, Regularly: Yes Physical Activity Frequency: Does not Exercise Seatbelt Use: always Sunscreen Use: Yes Assistive Devices: Glasses Physical Exam Physical Exam: Physical Exam: General: In no acute distress, stated age, well-nourished, good hygiene HEENT: Normocephalic, atraumatic, no scleral icterus, pupils around round, symmetrical, and reactive to light, moist mucus membranes, trachea midline, no thyromegaly Chest/Pulm: Significantly reproducible pain with palpation to the lower substernal region, No respiratory distress, symmetrical chest expansion, clear breath sounds throughout Cardiac: RRR, no murmurs noted Abdomen: Negative for ascites and bruising, normoactive bowel sounds, soft, tender to palpation of the epigastric region but otherwise non-tender to palpation throughout Musculoskeletal: Symmetrical and without signs of acute trauma, upper and lower extremities with full ROM, no atrophy, spasticity, or flaccidity Extremities: Radial, dorsalis pedis, and posterior tibial pulses are intact and symmetrical, no edema noted in the BL LE's Skin: Warm, dry, no rashes , lesions, or scars noted Neuro: Alert and oriented to person, place, month, year, and president, no focal defects, CN II-XII tested and intact, no tremors noted Psych: No acute distress, calm and cooperative during the exam Results & Data Results & Data Vital Signs (Past 12 Hours) Vital Signs Temp Pulse Pulse Resp BP BP Pulse Ox 06/29/23 12:00 62 18 137/67 100 06/29/23 11:56 62 16 140/65 06/29/23 11:30 69 18 167/69 H 98 06/29/23 11:27 151/71 H 06/29/23 11:27 80 12 151/71 H 06/29/23 11:08 74 06/29/23 11:05 98 06/29/23 11:04 63 18 124/68 98 06/29/23 11:03 66 17 124/68 06/29/23 10:23 36.4 C L 74 20 130/74 100 O2 Del Method 06/29/23 12:00 06/29/23 11:56 06/29/23 11:30 06/29/23 11:27 06/29/23 11:27 06/29/23 11:08 06/29/23 11:05 Room Air 06/29/23 11:04 Room Air 06/29/23 11:03 06/29/23 10:23 Room Air Laboratory Results Abnormal lab results 06/29/23 Range/Units 10:37 [place] # (Auto) 1.04 H (0.11-0.59) K/uL BUN/Creatinine Ratio 22.3 H (10-20) Diagnostic Findings Chest X-Ray 06/29/23 10:36 XR chest 1V portable HISTORY: Chest pain, nonspecific COMPARISON: Chest 01/16/2022. FINDINGS: The lungs are clear. Cardiac silhouette is normal in size. No pleural effusions. No pneumothorax. IMPRESSION: No acute process. ACT 112: Negative or not required by law. Electronically signed by: Shaan Carrillo M.D. 06/29/2023 10:59 AM Chest CTA 06/29/23 10:49 CHEST CTA for PULMONARY ARTERIES CT DOSE: 1392.82 mGy.cm HISTORY: PE - syncope, chest pain TECHNIQUE: Multiaxial CT images of the chest were performed following the intravenous administration of contrast to evaluate the pulmonary arteries. 3D/Maximal intensity projection images were also obtained. Sagittal and coronal reformations were also reviewed. A dose lowering technique was utilized adhering to the principles of ALARA. COMPARISON STUDY: Chest CTA 12/05/2021. FINDINGS: There are healing right anterior third through seventh nondisplaced rib fractures. No acute fractures within the chest. The central airways are patent. No pneumothorax. No pleural effusions. Linear scarlike density seen within the lingula. No focal lung consolidations to suggest a pneumonia. No evidence for pulmonary edema. Stable 12 mm left thyroid nodule. This does not meet CT criteria for pathologic involvement. Limited views of the upper abdomen demonstrate a normal spleen and adrenal glands. Prior cholecystectomy. Small hiatus hernia is noted. Mild bile duct dilatation is likely due to the patient's postcholecystectomy state. Normal caliber esophagus. The heart is normal in size. No pericardial effusion. No mediastinal or hilar lymphadenopathy. Normal c aliber thoracic aorta with no evidence for a dissection. No filling defects within the pulmonary arteries to suggest a pulmonary embolus. IMPRESSION: 1. No evidence for a pulmonary embolus. 2. Healing right anterior third through seventh nondisplaced rib fractures. No pneumothorax. No acute fractures within the chest. 3. No focal lung consolidations. 4. Small hiatus hernia. ACT 112: Negative or not required by law. Electronically signed by: Shaan Carrillo M.D. 06/29/2023 11:[address] 06/29/23 10:[address] DOSE: HISTORY: syncope TECHNIQUE: Multiaxial CT images of the head were performed without the use of intravenous contrast. Automated exposure control was utilized for this study. A dose lowering technique was utilized adhering to the principles of ALARA. Comparison: Head CT 05/05/2023. Findings: The paranasal sinuses and mastoid air cells are clear. The calvarium and skull base are intact. The ventricles and sulci are within normal limits. There is no mass, hematoma, midline shift, or acute infarct. Impression: No acute intracranial abnormality. ACT 112: Negative or not required by law. Electronically signed by: Shaan Carrillo M.D. 06/29/2023 11:33 AM ECG Additional Comments: Normal sinus rhythm with sinus arrhythmia Right bundle branch block Abnormal ECG When compared with ECG of 18-JAN-2022 06:20, Minimal criteria for Inferior infarct are no longer Present Code Status & VTE Plan Code Status Full code VTE Prophylaxis Plan VTE Prophylaxis will be ordered: Yes Supervising Physician Co-Signing Physician Notes I personally saw and examined the patient. I verified all vargas points and agree with Dennis Levine PA-C with the following exceptions and/or additions: 78 year old female presents to the ER with chest pain and syncopal episode in the ER waiting room O/E HS RRR, no murmurs, Chest CTAB, Abdo mild epigastric pain, no guarding or rebound tenderness A/P Syncope - main reason for observation but suspect vasovagal related to gastritis/heartburn. Similar presentation January 2022 although she also took nitroglycerin at that time. Gastritis/heartburn - increase pantoprazole back to 40mg PO BID, add famotidine 20mg PO BID and carafate. Exacerbated by hoagie yesterday, recent prednisone use from sinusitis and decreasing pantoprazole dose. Recommend follow up with GI. Low suspicion of ACS however higher risk with LA in December 2021 therefore will trend troponins overnight but lots of evidence this is GI in origin rather than cardiac. Monitor on telemetry for arrhythmia. PG Care Time/CCT Total # of Minutes Spent Total Time Spent with Patient: Total time spent is greater than 50% in coordination of care (as documented) at patient's floor/unit and/or counseling patient: Coding [place] [address] INT INP/OBS CARE 2/55MIN Patient Type Established Medical Decision Making Moderate Complexity Diagnoses Chest pain R07.9 Chest pain type: unspecified Syncope R55 Syncope type: unspecified Rib fractures S22.49XA Hyperlipidemia E78.5 Chronic GERD K21.9 Hypertension I10 Coronary artery disease I25.10 (1) Chest pain Chest pain type: unspecified Qualified Code(s): R07.9 - Chest pain, unspecified (2) Syncope Syncope type: unspecified Qualified Code(s): R55 - Syncope and collapse
[2023-06-29] MEDS ORDERED: LACTATED RINGER'S 1,000 ML IV SCH (13:00)
[2023-06-29] MEDS ORDERED: ACETAMINOPHEN 325 MG TAB PO PRN (13:11)
[2023-06-29 13:59] LABS: Partial Thromboplastin Ratio 0.7; Partial Thromboplastin Time 20.8 Seconds (21.0-31.0); Prothrombin Time 10.7 Seconds (9.0-12.0)
[2023-06-29] MEDS: SUCRALFATE 1 GM/10 ML UDC PO SCH ×3 (14:36→20:59)
[2023-06-29] MEDS: PANTOprazole 40 MG TAB PO SCH (20:58)
[2023-06-29] MEDS: FAMOTIDINE 20 MG TAB PO SCH (20:58)
[2023-06-30 01:30] LABS: Basophils # (auto) 0.08 K/uL (0.00-0.20); Basophils % (auto) 0.8 %; Eosinophils # (auto) 0.15 K/uL (0.00-0.50); Eosinophils % (auto) 1.5 %; Hematocrit (blood only) 37.6 % (37.0-47.0); Hemoglobin 12.6 g/dl (12.0-16.0); Immature Granulocytes # (auto) 0.03 K/uL (0.01-0.20); Immature Granulocytes % (auto) 0.3 %; Lymphocytes # (auto) 3.09 K/uL (1.20-3.40); Lymphocytes % (auto) 30.8 %; Mean Corpuscular Hemoglobin 29.9 pg (25.0-34.0); Mean Corpuscular Hgb Conc 33.5 g/dL (32.0-36.0); Mean Corpuscular Volume 89.3 fL (80.0-100.0); Mean Platelet Volume 10.8 fL (9.4-12.4); Monocytes # (auto) 1.31 K/uL (0.11-0.59); Monocytes % (auto) 13.1 %; Neutrophils # (auto) 5.37 K/uL (1.40-6.50); Neutrophils % (auto) 53.5 %; Platelet Count 246 K/uL (130-400); RDW Coefficient of Variation 12.6 % (11.5-14.5); RDW Standard Deviation 41.1 fL (36.4-46.3); Red Blood Count 4.21 M/uL (4.20-5.40); White Blood Count 10.03 K/ul (4.8-10.8)
[2023-06-30 01:38] LABS: BUN Creatinine Ratio 16.5 (10-20); Calcium 8.5 mg/dl (8.6-10.3); Creatinine Clr Calc Pharmacy 37.9 ml/min; Est GFR (African American) 47.5 ml/min; Magnesium 2.2 mg/dl (1.7-2.4); Potassium 4.4 mmol/L (3.5-5.1)
[2023-06-30] MEDS: SUCRALFATE 1 GM/10 ML UDC PO SCH ×3 (07:54→16:06)
[2023-06-30] MEDS: PANTOprazole 40 MG TAB PO SCH (07:55)
[2023-06-30] MEDS: FAMOTIDINE 20 MG TAB PO SCH (07:55)
[2023-06-30] MEDS ORDERED: FLUoxetine HCL 20 MG CAP PO SCH (09:00)
[2023-06-30] MEDS ORDERED: ASPIRIN 81 MG ECTAB PO SCH (09:00)
[2023-06-30] MEDS ORDERED: ROSUVASTATIN CALCIUM 20 MG TAB PO SCH (09:00)
[2023-06-30] MEDS ORDERED: amLODIPine BESYLATE 5 MG TAB PO SCH (09:00)
[2023-06-30] MEDS ORDERED: LOSARTAN POTASSIUM 50 MG TAB PO SCH (09:00)
--- NOTE | 2023-06-30 15:25 | XCELERA ---
[id number]
--- NOTE | 2023-06-30 16:46 | Discharge Summary ---
Discharge Summary Date of Service June 30, 2023 Notes For Next Care Provider Consider upper GI scope Negative cardio workup Medication Changes From Visit Increased Protonix to BID QID carafate x 10 days Admission HPI Per Admitting Provider Ana is an 78 year old female with a PMH significant for CAD s/p RCA PCI on 12/19/2021, hypertension, hyperlipidemia, GERD esophageal dysphagia, hiatal hernia, IBS, and depression who presented to the [facility] ED on 06/29 with epigastric/chest pain and nausea which began on 06/26. While in the waiting room the patient had a syncopal episode and was initially taken to one of the trauma bays. She remained stable while in the ED. Labs including CBC, CMP, initial high sen trop were unremarkable. Chest xray was read as no acute process. Chest CTA with PE protocol was read as "1. No evidence for a pulmonary embolus. 2. Healing right anterior third through seventh nondisplaced rib fractures. No pneumothorax. No acute fractures within the chest. 3. No focal lung consolidations. 4. Small hiatus hernia.". Ct of the head wo con was read as negative for acute processes. Prior to admission the patient was given 2 a dose of 50 mcg and 100 mcg fentanyl, a dose of maalox, dose of 80 mg IV pantoprazole, and 8 mg IV zofran. At the time of the exam the patient was lying in bed in no acute distress. She states that she has been experiencing progressively worsening epigastric/lower substernal chest discomfort and nausea since 06/26. She states that this am her symptoms were severe prompting her to come to the ED. She describes the pain as burning/pressure which initially began in the epigastric region and has moved up her central chest. The pain has not radiated anywhere else. She states that she ate an [place] sub last night. She was told she could decrease her bid pantoprazole to daily approximately 2 months ago so she has been taking it once daily. She confirms that she has been belching and tasting an acidic/metallic taste since 06/26. She was treated for a respiratory illness with amoxicillin and a course of steroids approximately 2 weeks ago. Her symptoms have currently resolved after receiving maalox and starting IV pantoprazole in the ED. She was unaware of the previous right rib fractures but states that she was seen in the ED approximately 2-3 weeks ago after a fall. She states that she did not have chest pain on the day of evaluation but started to develop right sided chest pain the day after. She denies recent fever, chills, cough, SOB, vomiting, diarrhea, dysuria, hematuria, melena, LE swelling and other falls since her last. She wishes to be a full code and for her son to make medical decisions for her if she cannot make them herself. Please refer to Dr. Blackman's attestation for any changes to the treatment plan Principal Dx & Hospital Course #1 = Principal Diagnosis (1) Chest pain: -Currently stable with resolved symptoms after receiving a dose of maalox -At this time the patient's chest/epigastric discomfort appears more likely to be associated with exacerbation of her chronic reflux -Patient recently received a course of oral steroids, had decreased her pantoprazole from BID to daily, and had an [place] sub for dinner -Cardiac workup unremarkable - EKG, troponin, Echo, orthostatic BPs -Chest xray and CTA of the chest with PE protocol were negative for acute causes of her pain - Continue Pantoprazole BID and QID Carafate (2) Syncope: -Likely a vasovagal reaction to GI distress from significant reflux -CT head negative, vitals stable, no focal neuro defects -negative cardiac workup and had treatment of GI symptoms -Fall precautions -was given 1L LR on admission -orthostatics negative, no events on tele -ECHO negative (3) Rib fractures: -Patient noted to have right, 3rd-7th, non-displaced rib fractures -Likely occurred with her recent fall but not picked up on ED eval as she was not complaining of chest pain that day -No respiratory distress, stable on RA -Supportive measures with prn tylenol and incentive spirometry (4) Hyperlipidemia: -Continue statin (5) Chronic GERD: -Pantoprazole and carafate (6) Hypertension: -Stable -continue antihypertensives (7) Coronary artery disease: WIth h/o RCA stent 2021 -Continue aspirin, statin, ARB -not on metoprolol due to previous beta cynthia -also with ah/o syncope with NTG use -f/u routinely with Cardiology Plan Discharge to home, with outpatient GI follow up Discharge Exam Constitutional WD/WN, vitals as above Respiratory normal respiratory effort, lungs clear to auscultation Cardiovascular RRR, no murmur, no edema Gastrointestinal (Abdomen) normal bowel sounds, soft, nontender, no hepatosplenomegaly Skin no rashes, warm and dry Psychiatric A+Ox3, euthymic affect Updated Medication List Medication Instructions Recorded Confirmed Type multivitamin with minerals 1 tab PO QAM 04/27/19 06/29/23 History (Multiple Vitamin-Minerals tablet) cholecalciferol (vitamin D3) 25 25 mcg PO QAM 03/05/21 06/29/23 History mcg (1,000 unit) chewable tablet (Vitamin D3) aspirin 81 mg tablet,delayed 81 mg PO DAILY #30 tabs 12/19/21 06/29/23 Rx release (Adult Low Dose Aspirin) nitroglycerin 0.4 mg sublingual 0.4 mg sublingual Q5M PRN chest 12/27/21 06/29/23 Rx tablet (Nitrostat) pain #25 tabs melatonin 5 mg capsule 5 mg PO HS PRN Sleep 01/16/22 06/29/23 History fluticasone propionate 50 1 spray intranasal BID #47.4 mL 06/19/22 06/29/23 Rx mcg/actuation nasal spray,suspension (Flonase Allergy Relief) rosuvastatin 20 mg tablet (Crestor) 20 mg PO DAILY #90 tabs 05/19/23 06/29/23 Rx fluoxetine 40 mg capsule 40 mg PO DAILY #90 caps 05/29/23 06/29/23 Rx amlodipine 5 mg tablet 5 mg PO DAILY #90 tabs 06/09/23 06/29/23 Rx telmisartan 40 mg tablet 40 mg PO DAILY #90 tabs 06/09/23 06/29/23 Rx acetaminophen 325 mg tablet 650 mg (2 x 325 mg) PO Q6H PRN 06/30/23 Rx Pain, Mild 30 days #30 tabs pantoprazole 40 mg tablet,delayed 40 mg PO BID #60 tabs 06/30/23 Rx release sucralfate 1 gram tablet 1 g PO QID 10 days #40 tabs 06/30/23 Rx Hospital Stay Data Consultations 06/29/23 12:14 ED Decision to Admit Stat Diagnostic Imagining Performed 06/29/23 10:49 CT angio chest PE protocol Stat CT head/brain wo con Stat ECHO Pending Results Patient Have Any Pending Studies at Discharge: No Discharge Instructions Given to Patient (Per Discharging Provider) Ms. Cobb, You were admitted to the hospital after a syncopal episode likely related to your increasing GERD/heartburn. During your stay we did an extensive cardiac workup to rule out any cardiac cause of syncope. Your echo (heart ultrasound) was stable compared to the one done in 2021. We restarted your Protonix to twice a day. You should continue to avoid trigger foods, remain upright after eating and do not eat 2-3 hours before bed. We have also added Carafate to your heartburn regiment - you should use this 4 times a day for the next 10 days. You should crush the pill and mix it with liquid for a slushie/slurry consistency. Follow up with Dr. Burris. If you have new or worsening symptoms please contact his office or come back to the ER. It was a pleasure taking care of you, Fransisca Kingsley PA-C Total Time Total Time Spent Total Time Spent (In Minutes): 35 minutes Supervising Physician Co-Signing Physician Notes PA Supervision Note: I did not personally see or examine the patient today, but I verified all vargas points of POLY Guzman's assessment and plan with the following exceptions/additions: Pt left before being seen by myself despite instructions to RN asking to hold discharge until seen by attending provider. I reviewed the chart and discussed pt with POLY Kingsley at length Likely GI related vasovagal syncope No valvular disease, no arrhythmias on tele. SYmptoms seem consistent with vasovagal episode from heartburn which was ongoing for days and now resolved wi th carafate and PPI Stable for dc to home Coding Level of Care Code 06367 INP/OBS DISCH >30 MIN Diagnoses Chest pain R07.9 Chest pain type: unspecified Syncope R55 Syncope type: unspecified Rib fractures S22.49XA Hyperlipidemia E78.5 Chronic GERD K21.9 Hypertension I10 Coronary artery disease I25.10
--- NOTE | 2023-07-02 06:14 | Electrocardiogram Report ---
Test Reason : Blood Pressure : / mmHG Vent. Rate : 065 BPM Atrial Rate : 065 BPM P-R Int : 156 ms QRS Dur : 128 ms QT Int : 426 ms P-R-T Axes : 038 054 005 degrees QTc Int : 443 ms Poor data quality, interpretation may be adversely affected Normal sinus rhythm Right bundle branch block Nonspecific T wave abnormality Abnormal ECG When compared with ECG of 18-JAN-2022 06:20, Minimal criteria for Inferior infarct are no longer Present Confirmed by Vinicius Narayan ([id number]) on 07/02/2023 6:14:03 AM Referred By: REFERRED SELF Confirmed By:Vinicius Narayan
--- NOTE | 2023-07-02 06:15 | Electrocardiogram Report ---
Test Reason : Blood Pressure : / mmHG Vent. Rate : 064 BPM Atrial Rate : 064 BPM P-R Int : 152 ms QRS Dur : 120 ms QT Int : 450 ms P-R-T Axes : 041 033 -07 degrees QTc Int : 464 ms Normal sinus rhythm with sinus arrhythmia Right bundle branch block Abnormal ECG When compared with ECG of 29-Jun-2023 10:28, No significant change Confirmed by Vinicius Narayan ([id number]) on 07/02/2023 6:14:36 AM Referred By: Confirmed By:Vinicius Narayan
== END 2023-06-30 17:02 | disposition home or self-care (01) ==
LOC: ED 10:16 → EDINP 10:16 → SUATTDRO 12:22 → EDINP 06-30 13:26